=== PATIENT | female | born 1940 | race Caucasian/White ===

== ENCOUNTER 2021-07-25 14:53 | Emergency (ER) | payer MEDICARE, OTHER, SELFPAY ==
--- NOTE | 2021-07-25 | ECG_ITS ---
Test Reason : CHEST PAIN Blood Pressure : / mmHG Vent. Rate : 074 BPM Atrial Rate : 074 BPM P-R Int : 186 ms QRS Dur : 100 ms QT Int : 386 ms P-R-T Axes : 066 063 027 degrees QTc Int : 428 ms Normal sinus rhythm Nonspecific ST abnormality Abnormal ECG When compared with ECG of 14-MAR-2017 12:53, No significant change was found Referred By: Generic ED Physician Electronically Signed By:PALMA HUNT
--- NOTE | ~2021-07-25 | CT_ITS ---
CT/CT chest w con IMPRESSION: Bilateral consolidative airspace opacities with additional areas of tree-in-bud nodularity suggesting an infectious/inflammatory process. Recommend follow-up imaging to ensure resolution and to exclude the presence of underlying pulmonary nodules. Similar appearance to a cystic gas-filled structure in the superior mediastinum abutting the right trachea and cervical esophagus. Differential considerations would include a tracheal diverticulum or esophageal diverticulum. Fleischner guidelines were followed. EXAMINATION: CT CHEST WITH CONTRAST CLINICAL INFORMATION: Bilateral pneumonia versus mass COMPARISON: Chest radiograph 07/25/2021 TECHNIQUE: Multidetector volumetric CT imaging of the chest was obtained after the administration of 65 mL of Omnipaque 350 intravenous contrast without immediate adverse reactions. Axial MIP volume rendering provided. Sagittal and coronal reformatted images were obtained. This CT examination was performed using dose optimization techniques as appropriate, variously including the following: *Automated exposure control *Adjustment of mA and/or kV according to patient size (this includes techniques or standardized protocols for targeted exams where dose is matched to indication/reason for exam; i.e. extremities or head) *Use of iterative reconstruction technique DLP: 281 mGy-cm FINDINGS: LUNGS: There are bilateral consolidative airspace opacities, greatest in the right upper lobe adjacent to the major fissure and in the peripheral left upper lobe and superior segment of the left lower lobe. Additional areas of tree-in-bud nodularity and peripheral opacities in the right lower lobe. There is mild bronchial wall thickening. Scattered nodular opacities in both lungs favoring infectious/inflammatory etiologies. MEDIASTINUM: Heart is mildly enlarged, no pericardial effusion. There are low volume mediastinal lymph nodes. 1.4 cm right hilar node. Unchanged from prior exam from 2017, there is a gaseous cystic structure in the superior mediastinum abutting the posterior lateral right trachea and right cervical esophagus, this could represent a tracheal diverticulum versus an esophageal diverticulum. The thoracic aorta measures up to 4.1 cm. PLEURA: Trace right pleural effusion. AXILLA: No lymphadenopathy. UPPER ABDOMEN: Unremarkable OSSEOUS STRUCTURES: Degenerative changes in the spine.
--- NOTE | ~2021-07-25 | XR_ITS ---
EXAMINATION: XR CHEST CLINICAL INFORMATION: Shortness of breath COMPARISON: March 18, 2017 TECHNIQUE: AP portable view of the chest was obtained. FINDINGS: There are regions of parenchymal disease seen about the right upper lobe laterally as well as the left upper lobe laterally. This may represent bilateral infectious/inflammatory process however possible malignancy/metastatic disease is not excluded. If clinically indicated CT of the chest could help in further evaluation. Heart normal size. No pneumothorax or pleural effusion. No evidence of pulmonary edema. XR/XR chest 1V IMPRESSION: Bilateral peripheral lung lesions which may be infectious/inflammatory in nature. Malignancy cannot be excluded.
[2021-07-25 15:02] VITALS: BP 144/79; PULSE 79; RESP 18; TEMP 37.3; O2SAT 93; BMI 24.8
[2021-07-25 16:12] LABS: MANUAL DIFF FLAG NO
[2021-07-25 16:15] LABS: Basophils Percent Auto 0.3 % (0-2); Eosinophils Absolute Auto 0.1 X10*3/uL (0.0-0.4); Eosinophils Percent Auto 0.9 % (0-4); Hematocrit 34.3 % (37.0-47.0); Hemoglobin 11.2 g/dl (12.0-16.0); Imm Gran Abs Auto 0.03 X10*3/uL (0.00-0.03); Imm Gran Pct Auto 0.3 % (0.0-0.4); Lymphocytes Absolute Auto 1.5 X10*3/uL (1.2-4.9); Lymphocytes Percent Auto 15.2 % (20-40); Mean Corpuscular HGB Conc 32.7 g/dl (31.0-35.0); Mean Corpuscular Hemoglobin 29.8 pg (27.0-33.0); Mean Corpuscular Volume 91.2 fL (80.0-98.0); Mean Platelet Volume 9.9 fL (9.4-12.3); Monocytes Absolute Auto 0.9 X10*3/uL (0.1-1.2); Monocytes Percent Auto 9.4 % (2-11); Neutrophils Absolute Auto 7.1 x10*3/uL (2.0-8.3); Neutrophils Percent Auto 73.9 % (45-73); Platelet Count 200 X10*3/uL (160-400); Red Blood Count 3.76 X10*6/uL (4.20-5.50); Red Cell Distribution Width 13.5 % (11.0-16.0); White Blood Count 9.6 X10*3/uL (4.8-10.8)
[2021-07-25 16:27] LABS: Anion Gap 13 (12-20); Blood Urea Nitrogen 13 mg/dL (9-16); Calcium 8.8 mg/dL (8.4-10.2); Carbon Dioxide 26 mmol/L (22-29); Chloride 102 mmol/L (96-108); Creatinine Clr Calc Pharmacy 46.9; Estimated Glomerular Filt Rate 60; Glucose Random 111 mg/dL (60-115); Potassium 4.2 mmol/L (3.3-5.1); Sodium 137 mmol/L (135-145)
--- NOTE | 2021-07-25 16:44 | ED.CHESTPAIN ---
HPI - Chest Pain General Chief Complaint: Chest Pain Stated Complaint: Chest pain Time Seen by Provider: 07/25/21 16:30 Source: patient History of Present Illness HPI narrative: Patient with several days of cough and worsening shortness of breath. This morning she woke up and had bilateral chest discomfort. She describes it is lower limbs lateral aspect. No midline chest pain. No shoulder or back pain. Pain is sharp and worse with coughing and deep breathing. No prior history of this although she does have a history of chronic lung disease for which she sees a manager r d. She was prescribed doxycycline antibiotic starting 3 days ago so far without significant improvement. She is not on steroids at the moment. She states feels like she has sputum but is unable to cough it up. She has a history of an aortic aneurysm although she does not know which part of the aorta is affected. She denies abdominal pain. Related Data Home Medications Medication Instructions Recorded Confirmed atorvastatin 40 mg tablet 1 tab PO DAILY 07/25/21 07/25/21 doxycycline hyclate 100 mg capsule 100 mg PO BID 07/25/21 07/25/21 fluticasone propionate 110 1 puff PO DAILY 07/25/21 07/25/21 mcg/actuation HFA aerosol inhaler (Flovent HFA) levothyroxine 75 mcg tablet 1 tab PO DAILY 07/25/21 07/25/21 omeprazole 20 mg capsule,delayed 1 cap PO DAILY 07/25/21 07/25/21 release Previous Rx's Medication Instructions Recorded prednisone 20 mg tablet 40 mg PO DAILY #10 tab 07/25/21 Allergies Allergy/AdvReac Type Severity Reaction Status Date / Time No Known Allergies Allergy Unverified 12/16/19 19:24 [No Known Allergies*] Review of Systems Constitutional: Comments: No fevers or chills Cardiovascular: Comments: Chest pain as described Respiratory: Comments: Dyspnea and cough is described Gastrointestinal: Comments: No abdominal pain or nausea or vomiting Musculoskeletal: Comments: No leg pain Integumentary/Breasts: Comments: No rash Neurologic: Comments: No focal weakness PMFSH Past Medical History Medical History (Updated 07/25/21 @ 21:37 by Jose Erwin MD) Aortic aneurysm Social History Social History Alcohol intake: never Patient Tobacco Use Status: Never used Tobacco Use of substances other than those prescribed or required for medical reasons: No Advance Directives: Yes Advance Directives Information Provided: No Advance Directives on File: No Physical Exam Vital Signs: Vital Signs: Last Vital Signs Temp 97.8 F 07/25/21 19:29 Pulse 72 07/25/21 20:00 Resp 22 H 07/25/21 20:00 BP 156/65 H 07/25/21 19:29 Pulse Ox 94 07/25/21 20:00 BMI result Body Mass Index 24.8 Const: Other: Awake and alert in no acute distress. Chest: Other: Bilateral lateral lower chest wall tenderness. Reproduces symptoms. No midline or sternal tenderness Resp: Other: Diminished bilaterally, right greater than left. No obvious rales Cardio: Other: Regular rate and rhythm without murmurs rubs or gallops GI: Other: Soft nontender nondistended Skin: Other: Warm pink and dry without rash Neuro: Other: Grossly nonfocal Course Course Course Narrative: Cough chest pain. Clinically appears to be much more musculoskeletal pain. Unlikely cardiac or a order related. EKG normal sinus rhythm without ischemia. Lab work is unremarkable Will obtain chest x-ray IV Solu-Medrol, IV Toradol, albuterol. 17:35. CBC is normal Chemistries are normal Chest x-ray shows bilateral upper lobe infiltrates versus possible masses. CT scan recommended and ordered. 21:36. Patient able ambulate without desaturation. Feeling considerably better after medication. CT scan shows bilateral upper lobe infiltrates. She is currently on doxycycline but has only taken 2 doses so far. I do not think we need to change her antibiotics at this point. She is stable for discharge home. We will add prednisone to her current medication list MDM - Chest Pain Lab Data Result diagrams: 07/25/21 16:07 07/25/21 16:07 Labs: Lab Results 07/25/21 07/25/21 07/25/21 Range/Units 16:07 16:07 17:16 WBC 9.6 (4.8-10.8) X10*3/uL RBC 3.76 L (4.20-5.50) X10*6/uL Hgb 11.2 L (12.0-16.0) g/dl Hct 34.3 L (37.0-47.0) % MCV 91.2 (80.0-98.0) fL MCH 29.8 (27.0-33.0) pg MCHC 32.7 (31.0-35.0) g/dl RDW 13.5 (11.0-16.0) % Plt Count 200 (160-400) X10*3/uL MPV 9.9 (9.4-12.3) fL Immature Gran % (Auto) 0.3 (0.0-0.4) % Neut % (Auto) 73.9 H (45-73) % Lymph % (Auto) 15.2 L (20-40) % [place] % (Auto) 9.4 (2-11) % Eos % (Auto) 0.9 (0-4) % Baso % (Auto) 0.3 (0-2) % Lymph # (Auto) 1.5 (1.2-4.9) X10*3/uL [place] # (Auto) 0.9 (0.1-1.2) X10*3/uL Eos # (Auto) 0.1 (0.0-0.4) X10*3/uL Baso # (Auto) 0.0 (0.0-0.2) X10*3/uL Abs Immat Gran (auto) 0.03 (0.00-0.03) X10*3/uL Absolute Neuts (auto) 7.1 (2.0-8.3) x10*3/uL Absolute Nucleated RBC 0.000 (0.0-0.012) X10*3/uL Nucleated RBC % (auto) 0.0 (0.0-0.2) /100WBC Sodium 137 (135-145) mmol/L Potassium 4.2 (3.3-5.1) mmol/L Chloride 102 (96-108) mmol/L Carbon Dioxide 26 (22-29) mmol/L Anion Gap 13 (12-20) BUN 13 (9-16) mg/dL Creatinine 0.91 (0.5-1.4) mg/dL Estim Creat Clear Calc 46.9 Estimated GFR 60 Random Glucose 111 (60-115) mg/dL Calcium 8.8 (8.4-10.2) mg/dL COVID-19 (LUIS) Negative (Negative) COVID-19 Clin Com See Note Discharge Plan Discharge Clinical Impression: Atypical chest pain, Pneumonia Patient Disposition: Home, Self-Care Instructions: Community Acquired Pneumonia (ED) Prescriptions: New prednisone 20 mg tablet 40 mg PO DAILY Qty: 10 0RF No Action atorvastatin 40 mg tablet 1 tab PO DAILY 0RF doxycycline hyclate 100 mg capsule 100 mg PO BID 0RF Rx Instructions: X 10 DAYS STARTING 07/24/21 levothyroxine 75 mcg tablet 1 tab PO DAILY 0RF omeprazole 20 mg capsule,delayed release(DR/EC) 1 cap PO DAILY 0RF Flovent HFA 110 mcg/actuation HFA aerosol inhaler 1 puff PO DAILY 0RF
[2021-07-25 16:45] VITALS: BP 168/75; PULSE 74; RESP 19; TEMP 37; O2SAT 98
[2021-07-25] MEDS: Albuterol Sulfate (0.083%) 2.5 MG/3 ML VIAL.NEB INHALE (17:01)
[2021-07-25 17:02] VITALS: PULSE 71; RESP 20; O2SAT 97
[2021-07-25] MEDS: methylPREDNISolone Sod Succ 125 MG/2 ML VIAL IVPUSH (17:08)
[2021-07-25] MEDS: Ketorolac Tromethamine 15 MG/ML VIAL 30 MG IVPUSH (17:08)
[2021-07-25 17:40] LABS: COVID-19 Test Negative (Negative); IDNOW Serial# 16C4AD1C
[2021-07-25 19:29] VITALS: BP 156/65; PULSE 67; RESP 15; TEMP 36.6; O2SAT 94
[2021-07-25] MEDS: iohexoL 350 MG/ML 100 ML INFUS..BTL IV (19:46)
[2021-07-25 20:00] VITALS: PULSE 72; RESP 22; O2SAT 94
--- NOTE | 2021-07-25 20:54 | PHA.MEDREC ---
Pharmacy Consult ? Medication Reconciliation Pharmacy has completed the medication reconciliation.
--- NOTE | 2021-07-25 21:31 | PC.NURSE ---
pt ambulated w pulse ox. O2 sat starting at 94% dropping to 91%. pt felt some intermittent dizziness while walking, but improved from arrival to ED. provider notified.
--- NOTE | 2021-07-25 21:34 | PC.NURSE ---
IV removed from left AC.
== END 2021-07-25 21:44 | disposition home or self-care (01) ==
PROVIDERS: Emergency Provider Emergency Medicine; PCP Family Medicine
DX: J18.9 Pneumonia, unspecified organism (principal); R07.89 Other chest pain; J98.4 Other disorders of lung; I71.9 Aortic aneurysm of unspecified site, without rupture; Z20.822 Contact with and (suspected) exposure to COVID-19
CPT/HCPCS: 36415; 71045; 71260; 80048; 85025; 87635; 93005; 94640; 96374; 96375; 99284; 99285; J1885; J2930; Q9967

== ENCOUNTER 2023-11-27 12:11 | Emergency (ER) | payer MEDICARE, OTHER, SELFPAY ==
--- NOTE | ~2023-11-27 | CT_ITS ---
EXAMINATION: CT CERVICAL SPINE WITHOUT CONTRAST CLINICAL INFORMATION: Mechanical fall, neck injury and pain COMPARISON: CT scan of chest on 07/25/2021 TECHNIQUE: Multiple 3 and 0.6 mm axial images were obtained from base of skull to T1 levels without IV contrast enhancement. Sagittal and coronal 2.0 mm bone window images were reconstructed from axial image data. This CT examination was performed using dose optimization techniques as appropriate, variously including the following: *Automated exposure control *Adjustment of mA and/or kV according to patient size (this includes techniques or standardized protocols for targeted exams where dose is matched to indication/reason for exam; i.e. extremities or head) *Use of iterative reconstruction technique DLP: 268.96 mGy-cm FINDINGS: C1/C2: Bony structures are intact with normal alignment. Advanced atlantoaxial joint osteoarthritis with small sharp marginal osteophytosis is seen. There is no spinal stenosis. C2/C3: Bony structures are intact with normal alignment. There is no spinal stenosis. Bilateral C2/C3 neuroforamina are patent. Bilateral apophyseal joints are intact with normal alignment. C3/C4: Bony structures are intact with normal alignment. There is no spinal stenosis. Bilateral C3/C4 neuroforamina are patent. Bilateral apophyseal joints are intact with normal alignment. C4/C5: Bony structures are intact with posterior C4 on C5 displacement by 0.14 cm. Anterior sharp syndesmophytes are present. There is marked decrease in intervertebral disc height.. There is no spinal stenosis. Bilateral C4/C5 neuroforamina are mildly stenosed. Bilateral apophyseal joints are intact with normal alignment. C5/C6: Bony structures are intact with normal alignment. There is no spinal stenosis. Bilateral C5/C6 neuroforamina are patent. Bilateral apophyseal joints are intact with normal alignment. C6/C7: Bony structures are intact with normal alignment. There is marked decrease in intervertebral disc height. Anterior sharp syndesmophytes are present. There is no spinal stenosis. Bilateral C6/C7 neuroforamina are patent. Bilateral apophyseal joints are intact with normal alignment. C7/T1: Bony structures are intact with normal alignment. There is no spinal stenosis. Bilateral C7/T1 neuroforamina are patent. Bilateral apophyseal joints are intact with normal alignment. Multilevel bilateral apophyseal joint and uncovertebral joint osteoarthritis with loss of joint space, sclerosis, facet hypertrophy and osteophytosis are seen. At T1 level, a right-sided tracheal diverticulum is seen directly beneath the right lower thyroid pole, communicating with posterior lateral tracheal lumen, measuring 3.3 cm in AP diameter, 1.7 cm in width, 2.5 cm in vertical height. CT/CT cervical spine wo IV con IMPRESSION: 1. No evidence of acute fracture or dislocation. 2. Multilevel cervical spondylosis, advanced C4-C5, C6-C7 degenerative cervical disc disease, grade 1 C4-C5 retrolisthesis. 3. 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 Fleischner guidelines were followed. Electronically signed by: Nav Peck MD 11/27/2023 03:20 PM EDT
--- NOTE | ~2023-11-27 | CT_ITS ---
EXAMINATION: CT HEAD WITHOUT CONTRAST CLINICAL INFORMATION: Mechanical fall, frontal head strike. COMPARISON: CT scan of brain on 03/14/2017 TECHNIQUE: Contiguous axial imaging was performed from the skull base to vertex without intravenous administration of contrast. This CT examination was performed using dose optimization techniques as appropriate, variously including the following: *Automated exposure control *Adjustment of mA and/or kV according to patient size (this includes techniques or standardized protocols for targeted exams where dose is matched to indication/reason for exam; i.e. extremities or head) *Use of iterative reconstruction technique DLP: 657.34 mGy-cm FINDINGS: Ventricles, sulci and cisterns are dilated, especially the ventricles. Marked sulcal dilatation is seen at bilateral parasagittal parieto-occipital junction. Bilateral frontal and parietal deep white matters show patchy decrease in attenuation. There is no midline shift, no abnormal intra- or extra- axial fluid accumulation. Watson and white matter differentiation is normal. Midline frontal crescent shaped acute scalp hematoma is seen measuring up to 0.6 cm in thickness. Bone window images show no evidence of skull fracture. CT/CT head/brain wo IV con IMPRESSION: 1. 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 2. Interval development of midline frontal acute scalp hematoma. No intracranial hemorrhage or skull fracture is seen. 3. No evidence of space occupying lesion could be found. 4. 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 5. The current plain CT scan of the brain shows no diagnostic evidence of acute cerebral infarction. Electronically signed by: Nav Peck MD 11/27/2023 02:45 PM EDT
[2023-11-27 12:30] VITALS: BP 144/72; PULSE 66; RESP 18; TEMP 36.6; O2SAT 99; BMI 24.1
--- NOTE | 2023-11-27 12:32 | ED.HA ---
HPI - Headache General Chief Complaint: Fall Stated Complaint: Fall, hit head Time Seen by Provider: 11/27/23 15:36 Source: patient Mode of arrival: ambulatory Limitations: no limitations History of Present Illness ED Provider: PRATIMA MENSAH PA-C HPI Narrative: 82 year old female with pmhx significant for HTN presents to the ED today for evaluation of 1/10 headache after head strike yesterday. Patient reports that while sleeping at her friends house in [place] she had an episode of vivid dreams causing her to roll off the platform bed. Reports frontal head strike on the carpeted floor. She recalls the entire incident and denies LOC. Not on anticoagulation. She states this happened over 24 hours ago around 5:00 a.m. in the morning. She decided to wait to return to [place] prior to seeking medical evaluation. Endorses 1/10 frontal headache with bump . Denies dizziness, vision changes, confusion, N/V. No other concerns at present. Related Data Home Medications ?Medication ?Instructions ?Recorded ?Confirmed atorvastatin 40 mg tablet 1 tab PO DAILY 07/25/21 07/25/21 doxycycline hyclate 100 mg capsule 100 mg PO BID 07/25/21 07/25/21 fluticasone propionate 110 1 puff PO DAILY 07/25/21 07/25/21 mcg/actuation HFA aerosol inhaler (Flovent HFA) levothyroxine 75 mcg tablet 1 tab PO DAILY 07/25/21 07/25/21 omeprazole 20 mg capsule,delayed 1 cap PO DAILY 07/25/21 07/25/21 release Previous Rx's ?Medication ?Instructions ?Recorded prednisone 20 mg tablet 40 mg (2 x 20 mg) PO DAILY #10 tabs 07/25/21 Allergies Allergy/AdvReac Type Severity Reaction Status Date / Time No Known Allergies Allergy Unverified 11/27/23 12:32 [No Known Allergies*] Review of Systems Review of Systems: Constitutional: No fever, chills, fatigue, night sweats, weight changes ENT/Mouth: No ear pain, hearing loss, nasal congestion, sinus pain, rhinorrhea, sore throat Eyes: No eye pain, swelling, redness, vision changes, discharge Cardio: No chest pain, palpitations, ARRIAGA, orthopnea, peripheral edema Pulm: No SOB, cough, sputum, wheezing, dyspnea, hemoptysis GI: No nausea, vomiting, hematemesis, abdominal pain, diarrhea, constipation, hematochezia, melena : No irregular bleeding, dysuria, frequency, urgency, hesitancy, hematuria, flank pain, urinary flow changes, urinary incontinence or retention MSK: No back pain, neck pain, joint pain, myalgias Skin: No lesions, rashes Neuro: No weakness, numbness, paresthesias, LOC, dizziness, +headache Psych: No anxiety/panic, depression, SI/HI, AH/VH All other systems reviewed and are negative. FOR[facility]LY [facility] Past Medical History Attestation statement: The following information was validated with the patient. Source: old records reviewed and nursing notes reviewed Medical History Aortic aneurysm Social History Social History Alcohol intake: never Patient Tobacco Use Status: Never used Tobacco Advance Directives: No Advance Directives Information Provided: No Physical Exam Vital Signs: Vital Signs: Last Vital Signs Temp 98.4 F 11/27/23 15:38 Pulse 80 11/27/23 15:38 Resp 16 11/27/23 15:38 BP 170/69 H 11/27/23 15:38 Pulse Ox 99 11/27/23 12:30 O2 Del Method Room Air 11/27/23 15:38 BMI result Body Mass Index 24.1 Patient hypertensive, vitals otherwise WNL. General: Well appearing, in no acute distress. Skin: Warm, dry, intact. No rashes or lesions. Head: Small frontal scalp hematoma. No palpable skull fracture. EENT: Hearing is intact b/l. Conjunctiva clear. Sclera is anicteric. PERRLA. EOM intact. Moist mucous membranes.? Neck: Supple without LAD. FROM. Trachea midline.? Cardiac: Chest wall symmetric. RRR. No MRG. No JVD. Lungs: Normal respiratory effort without accessory muscle use. CTA bilaterally. No rales, rhonchi, or wheezes.? Abdomen: Soft, non-tender, non-distended. No rebound tenderness or guarding. Positive BS x4. Back: No midline spinous or paraspinal tenderness. No step off deformity. Ext: Upper and lower extremities atraumatic, without tenderness, deformity, swelling or erythema. Full ROM throughout. Pulses 2+ equal and bilateral. Neuro: AOx3. Normal speech. CN 2-12 grossly intact. Strength 5/5 intact throughout. Sensation intact to light touch. NV intact distally. Reflexes 2+ bilaterally. Ambulating with steady gait. Psych: Appropriate mood and affect. Responds appropriately to questions. Course Course Course Narrative: This is a Rapid Medical Examination (RME) performed by Tiffanie Mensah PA-C in triage. Full HPI, ROS, assessment and treatment plan per primary provider in the Main ED. 82 yo female here for eval of of headache s/p fall from 4ft height yesterday morning around 0515. reports having vivid dreams which caused her to roll off of a platform bed. reports frontal head strike on the floor. denies LOC, recalls the entire episode. Not on AC. admits she was out of state at her friends [facility], waited to return to [facility] for evaluation. denies neck pain, vision changes, confusion, dizziness, n/v. + perrla, exam nonfocal. Plan: cts Reevaluation(s) Reevaluation #1: [id number] -- Discussed all work up results with patient. Imaging shows new frontal scalp hematoma which is consistent with physical exam findings. Patient has remained stable throughout ED visit today. Discussed worrisome signs and symptoms and when to return to the ED. All questions answered at this time. Patient is agreeable with disposition and stable for discharge. CT head/brain wo IV con IMPRESSION: 1. 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 2. Interval development of midline frontal acute scalp hematoma. No intracranial hemorrhage or skull fracture is seen. 3. No evidence of space occupying lesion could be found. 4. 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 5. The current plain CT scan of the brain shows no diagnostic evidence of acute cerebral infarction. CT cervical spine wo IV con IMPRESSION: 1. No evidence of acute fracture or dislocation. 2. Multilevel cervical spondylosis, advanced C4-C5, C6-C7 degenerative cervical disc disease, grade 1 C4-C5 retrolisthesis. 3. 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 Fleischner guidelines were followed. Electronically signed by: Nav Peck MD 11/27/2023 03:20 PM EDT RP Medical Decision Making Medical Decision Making MDM Narrative: 82 year old female with pmhx significant for HTN presents to the ED today for evaluation of 1/10 headache after head strike yesterday. Patient is slightly hypertensive to 144/72. Vitals otherwise WNL. She is nontoxic-appearing and in no acute distress. Exam is nonfocal. Cerebellum intact. PERRLA. There is a small frontal scalp hematoma. No overlying lacerations or abrasions. No palpable skull fracture. No midline cervical spinous tenderness or step-off deformity. Full ROM intact to c spine. No ecchymosis noted to chest wall or abdomen. No tenderness to palpation. Ambulating with steady gait. Differential diagnosis includes concussion, scalp hematoma. Unlikely ICH, CVA/TIA, cervical fracture, subluxation, skull fracture, TBI. Plan for CT head/brain, C-spine, re-evaluation. Differential Diagnosis Differential Diagnoses: The differential diagnosis associated with the presentation includes as above Admission/Observation not indicated Independent Interpretation I performed an independent interpretation of an: CT Scan Interpretation: CT head/brain without acute intracranial bleed, small frontal scalp hematoma noted, agree with radiologist's interpretation. Ct cervical spine without acute fracture, agree with radiologist's interpretation. Radiology Impression Discussion of test interpretation with radiology: I have reviewed the radiologist's reading. Radiologist Impression: EXAMINATION: CT CERVICAL SPINE WITHOUT CONTRAST CLINICAL INFORMATION: Mechanical fall, neck injury and pain COMPARISON: CT scan of chest on 07/25/2021 TECHNIQUE: Multiple 3 and 0.6 mm axial images were obtained from base of skull to T1 levels without IV contrast enhancement. Sagittal and coronal 2.0 mm bone window images were reconstructed from axial image data. This CT examination was performed using dose optimization techniques as appropriate, variously including the following: *Automated exposure control *Adjustment of mA and/or kV according to patient size (this includes techniques or standardized protocols for targeted exams where dose is matched to indication/reason for exam; i.e. extremities or head) *Use of iterative reconstruction technique DLP: 268.96 mGy-cm FINDINGS: C1/C2: Bony structures are intact with normal alignment. Advanced atlantoaxial joint osteoarthritis with small sharp marginal osteophytosis is seen. There is no spinal stenosis. C2/C3: Bony structures are intact with normal alignment. There is no spinal stenosis. Bilateral C2/C3 neuroforamina are patent. Bilateral apophyseal joints are intact with normal alignment. C3/C4: Bony structures are intact with normal alignment. There is no spinal stenosis. Bilateral C3/C4 neuroforamina are patent. Bilateral apophyseal joints are intact with normal alignment. C4/C5: Bony structures are intact with posterior C4 on C5 displacement by 0.14 cm. Anterior sharp syndesmophytes are present. There is marked decrease in intervertebral disc height.. There is no spinal stenosis. Bilateral C4/C5 neuroforamina are mildly stenosed. Bilateral apophyseal joints are intact with normal alignment. C5/C6: Bony structures are intact with normal alignment. There is no spinal stenosis. Bilateral C5/C6 neuroforamina are patent. Bilateral apophyseal joints are intact with normal alignment. C6/C7: Bony structures are intact with normal alignment. There is marked decrease in intervertebral disc height. Anterior sharp syndesmophytes are present. There is no spinal stenosis. Bilateral C6/C7 neuroforamina are patent. Bilateral apophyseal joints are intact with normal alignment. C7/T1: Bony structures are intact with normal alignment. There is no spinal stenosis. Bilateral C7/T1 neuroforamina are patent. Bilateral apophyseal joints are intact with normal alignment. Multilevel bilateral apophyseal joint and uncovertebral joint osteoarthritis with loss of joint space, sclerosis, facet hypertrophy and osteophytosis are seen. At T1 level, a right-sided tracheal diverticulum is seen directly beneath the right lower thyroid pole, communicating with posterior lateral tracheal lumen, measuring 3.3 cm in AP diameter, 1.7 cm in width, 2.5 cm in vertical height. CT/CT cervical spine wo IV con IMPRESSION: 1. No evidence of acute fracture or dislocation. 2. Multilevel cervical spondylosis, advanced C4-C5, C6-C7 degenerative cervical disc disease, grade 1 C4-C5 retrolisthesis. 3. 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 Fleischner guidelines were followed. EXAMINATION: CT HEAD WITHOUT CONTRAST CLINICAL INFORMATION: Mechanical fall, frontal head strike. COMPARISON: CT scan of brain on 03/14/2017 TECHNIQUE: Contiguous axial imaging was performed from the skull base to vertex without intravenous administration of contrast. This CT examination was performed using dose optimization techniques as appropriate, variously including the following: *Automated exposure control *Adjustment of mA and/or kV according to patient size (this includes techniques or standardized protocols for targeted exams where dose is matched to indication/reason for exam; i.e. extremities or head) *Use of iterative reconstruction technique DLP: 657.34 mGy-cm FINDINGS: Ventricles, sulci and cisterns are dilated, especially the ventricles. Marked sulcal dilatation is seen at bilateral parasagittal parieto-occipital junction. Bilateral frontal and parietal deep white matters show patchy decrease in attenuation. There is no midline shift, no abnormal intra- or extra- axial fluid accumulation. Watson and white matter differentiation is normal. Midline frontal crescent shaped acute scalp hematoma is seen measuring up to 0.6 cm in thickness. Bone window images show no evidence of skull fracture. CT/CT head/brain wo IV con IMPRESSION: 1. 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 2. Interval development of midline frontal acute scalp hematoma. No intracranial hemorrhage or skull fracture is seen. 3. No evidence of space occupying lesion could be found. 4. 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 5. The current plain CT scan of the brain shows no diagnostic evidence of acute cerebral infarction. Electronically signed by: Nav Peck MD 11/27/2023 02:45 PM EDT RP Prescription Management I considered prescription management with: Pain Medication Chronic Conditions Patient?s care impacted by: Hypertension Social Determinants Patient?s care significantly limited by Social Determinants of Health including: Other Social Determinant of Health Critical Care Time Critical Care Time Critical Care Time: No Discharge Plan Discharge Clinical Impression: Hematoma of frontal scalp Patient Disposition: Home, Self-Care Instructions: Contusion in Adults (ED), Scalp Contusion in Adults (ED), Hematoma (ED) Additional Instructions: The CT scan of your head does not demonstrate intracranial bleed or skull fracture. It does show a small hematoma to your forehead, as discussed. The CT scan of your neck does not demonstrate acute fracture. You may have a concussion. The recommendation for this is resting the brain. Limit screen time over the next few days. You may take Tylenol and ibuprofen at home as needed for headache. Follow up with PCP as needed. Return to the ED with new or worsening symptoms such as intractable headache, nausea or vomiting, confusion. In the case of an emergency call 911. Prescriptions: No Action atorvastatin 40 mg tablet 1 tab PO DAILY doxycycline hyclate 100 mg capsule 100 mg PO BID Rx Instructions: X 10 DAYS STARTING 07/24/21 levothyroxine 75 mcg tablet 1 tab PO DAILY omeprazole 20 mg capsule,delayed release(DR/EC) 1 cap PO DAILY Flovent HFA 110 mcg/actuation HFA aerosol inhaler 1 puff PO DAILY prednisone 20 mg tablet 40 mg PO DAILY Qty: 10 0RF Referrals: Gui Bernal MD [Primary Care Provider] - Interventions: ED Discharge Assessment Last Done: 11/27/23 15:38 Discharge Date/Time: 11/27/23 15:41 Print Language: Ukrainian
[2023-11-27 15:38] VITALS: BP 170/69; PULSE 80; RESP 16; TEMP 36.9
== END 2023-11-27 15:41 | disposition home or self-care (01) ==
LOC: HO.ED 15:39
PROVIDERS: Emergency Provider Emergency Medicine; PCP Family Medicine
DX: S00.03XA Contusion of scalp, initial encounter (principal); M54.2 Cervicalgia; R51.9 Headache, unspecified; W06.XXXA Fall from bed, initial encounter; Y93.89 Activity, other specified; Y92.89 Other specified places as the place of occurrence of the external cause; Y99.8 Other external cause status
CPT/HCPCS: 70450; 72125; 99282; 99284

== ENCOUNTER 2023-12-04 19:19 | Emergency (ER) | payer MEDICARE, OTHER, SELFPAY ==
--- NOTE | ~2023-12-04 | XR_ITS ---
EXAMINATION: XR CHEST CLINICAL INFORMATION: Chest pain COMPARISON: Chest x-ray July 25, 2021 TECHNIQUE: 2 views of the chest were obtained. FINDINGS: Lungs are clear. No pulmonary vascular congestion. There is no pleural effusion. The heart size is normal. The cardiac and mediastinal contours are normal. There are multilevel degenerative changes of dorsal spine. XR/XR chest 2V IMPRESSION: Unremarkable examination. Electronically signed by: Ricardo Brandt MD 12/04/2023 09:28 PM EDT RP
--- NOTE | 2023-12-04 19:21 | ECG_ITS ---
Test Reason : CHEST PAIN Blood Pressure : / mmHG Vent. Rate : 065 BPM Atrial Rate : 065 BPM P-R Int : 218 ms QRS Dur : 096 ms QT Int : 416 ms P-R-T Axes : 057 032 041 degrees QTc Int : 432 ms Sinus rhythm with 1st degree A-V block Nonspecific ST abnormality Abnormal ECG When compared with ECG of 25-JUL-2021 14:58, HI interval has increased Referred By: Generic ED Physician Electronically Signed By:JAYCEE MORENO
--- NOTE | 2023-12-04 19:32 | ED_ITS ---
HPI - Chest Pain General Chief Complaint: Chest Pain Stated Complaint: chest pain, light headed,fatigue Time Seen by Provider: 12/05/23 00:09 History of Present Illness ED Provider: Angie BENAVIDES narrative: The patient is an 83-year-old woman who was seen in the emergency room a week ago after she fell out of bed and struck her face and knees and may have landed on her chest. She came to the emergency room after the fall and had a negative workup and was discharged. She has not been feeling that well since the fall and today she went for a more vigorous walk then she has recently. She felt some chest discomfort and shortness of breath as a result of the walk. She felt uncomfortable for about 5-10 minutes and decided to come to the emergency room for evaluation. Related Data Home Medications ?Medication ?Instructions ?Recorded ?Confirmed atorvastatin 40 mg tablet 1 tab PO DAILY 07/25/21 07/25/21 doxycycline hyclate 100 mg capsule 100 mg PO BID 07/25/21 07/25/21 fluticasone propionate 110 1 puff PO DAILY 07/25/21 07/25/21 mcg/actuation HFA aerosol inhaler (Flovent HFA) levothyroxine 75 mcg tablet 1 tab PO DAILY 07/25/21 07/25/21 omeprazole 20 mg capsule,delayed 1 cap PO DAILY 07/25/21 07/25/21 release Previous Rx's ?Medication ?Instructions ?Recorded prednisone 20 mg tablet 40 mg (2 x 20 mg) PO DAILY #10 tabs 07/25/21 Allergies Allergy/AdvReac Type Severity Reaction Status Date / Time No Known Allergies Allergy Verified 12/04/23 19:39 [No Known Allergies*] Review of Systems 2 Review of Systems: Yes all other systems are reviewed and are negative [facility] Past Medical History Medical History Aortic aneurysm Social History Social History Alcohol intake: never Patient Tobacco Use Status: Never used Tobacco Smoked in Last 30 Days: No Use of substances other than those prescribed or required for medical reasons: No Advance Directives: No Advance Directives Information Provided: No Do you have a plan to hurt others: No Plan Physical Exam 2 Vital Signs: Vital Signs: Last Vital Signs Temp 98.7 F 12/05/23 00:44 Pulse 66 12/05/23 00:44 Resp 18 12/05/23 00:44 BP 135/60 12/05/23 00:44 Pulse Ox 98 12/05/23 00:44 O2 Del Method Room Air 12/05/23 00:44 BMI result Body Mass Index 20.7 Const: Other: The patient is an 83-year-old woman who looks young for her age. She looks as though she is ordinarily in good health. She was awake and alert and did not appear in acute distress. HEENT: Head: Yes normal to inspection Face and sinus: Yes normal facial exam and Yes face symmetric Mouth: Normal oral and palatal mucosa present and moist mucous membranes Eyes: General: appearance normal, both eyes and all related structures Neck: Neck: Yes full ROM and Yes no JVD Resp: Effort & Inspection: normal respiratory effort Auscultation: clear to auscultation bilaterally Cardio: Rate: regular rate Rhythm: regular rhythm Heart sounds: S1 normal heart sound present and S2 normal heart sound present GI: Other: Abdomen is soft nontender Skin: Other: skin is dry and unremarkable Neuro: Other: the patient is awake and alert with normal mental status. Demeanor is pleasant and nontoxic. Cranial nerves are grossly intact. She moves her extremities normally and appropriately. She seems grossly neurologically intact. Extrem: Other: No calf swelling or tenderness, no calf asymmetry, no edema. Course Course Course Narrative: This is a Rapid Medical Examination (RME) performed by Maryjane Last PA-C in triage. Full HPI, ROS, assessment and treatment plan per primary provider in the Main ED. 83 yo female presents to the ER for evaluation of lightheadedness, lower/middle back pain, intermittent chest pains, leg pain, weakness, fatigue and SOB that started at 430 after she went for a walk around the block. no current chest pain. primary symptom is dizziness and not feeling right. she reports 8 days ago she fell out of bed and hit her head and has not fully recovered since. history of seizure 1 year ago and is on seizure med. no cardiac history. never smoker. Plan: EKG, labs, CXR, viral studies, orthostatics Medical Decision Making Medical Decision Making MDM Narrative: The patient is an 83-year-old woman with no history of coronary disease who presents with an episode of exertional chest pain and shortness of breath. She has an unremarkable EKG and flat troponins. I think it is probably unlikely that her symptoms were A manifestation of an acute coronary syndrome. She looks quite well. I think she may be discharged with instructions follow-up with regular doctor. In the meantime I would recommend that she avoid significant exertion until she has followed up with her regular doctor and possibly seen a mission assessment specialist. She was given the name and number of [facility] but she has most of her care through [facility] [place] and she may wish to follow-up through her regular doctor's office. Lab Data 12/04/23 19:45 12/04/23 19:45 Labs: Lab Results 12/04/23 12/04/23 12/04/23 Range/Units 19:45 22:42 23:57 WBC 6.6 (4.8-10.8) X10*3/uL RBC 3.77 L (4.20-5.50) X10*6/uL Hgb 11.1 L (12.0-16.0) g/dl Hct 34.4 L (37.0-47.0) % MCV 91.2 (80.0-98.0) fL MCH 29.4 (27.0-33.0) pg MCHC 32.3 (31.0-35.0) g/dl RDW 14.3 (11.0-16.0) % Plt Count 247 (160-400) X10*3/uL MPV 9.9 (9.4-12.3) fL Immature Gran % (Auto) 0.5 H (0.0-0.4) % Neut % (Auto) 51.6 (45-73) % Lymph % (Auto) 28.1 (20-40) % Mcminn % (Auto) 11.6 H (2-11) % Eos % (Auto) 5.9 H (0-4) % Baso % (Auto) 2.3 H (0-2) % Lymph # (Auto) 1.9 (1.2-4.9) X10*3/uL Mcminn # (Auto) 0.8 (0.1-1.2) X10*3/uL Eos # (Auto) 0.4 (0.0-0.4) X10*3/uL Baso # (Auto) 0.2 (0.0-0.2) X10*3/uL Abs Immat Gran (auto) 0.03 (0.00-0.03) X10*3/uL Absolute Neuts (auto) 3.4 (2.0-8.3) x10*3/uL Absolute Nucleated RBC 0.000 (0.0-0.012) X10*3/uL Nucleated RBC % (auto) 0.0 (0.0-0.2) /100WBC Sodium 136 (135-145) mmol/L Potassium 4.4 (3.3-5.1) mmol/L Chloride 100 (96-108) mmol/L Carbon Dioxide 25 (22-29) mmol/L Anion Gap 15 (12-20) BUN 21 H (9-16) mg/dL Creatinine 0.99 (0.5-1.4) mg/dL Estim Creat Clear Calc 40.3 Estimated GFR 54 Random Glucose 91 (60-115) mg/dL Calcium 9.4 D (8.4-10.2) mg/dL Magnesium 2.3 (1.6-2.6) mg/dL Total Bilirubin 0.6 (0.0-1.0) mg/dL Direct Bilirubin 0.2 (0.0-0.5) mg/dL AST 21 (5-31) U/L ALT 17 (0-31) U/L Alkaline Phosphatase 58 (39-117) U/L Troponin I High Sens 3.5 3.6 (<3.5-17.0) ng/L B-Natriuretic Peptide 153 H (<100) pg/mL Total Protein 7.7 (6.5-8.0) g/dL Albumin 3.8 (3.5-5.0) g/dL Urine Color Yellow Urine Appearance Clear Urine pH 6.5 (5.0-9.0) Ur Specific [place] <= 1.005 (1.005-1.025) Urine Protein Negative (Neg-Trace) mg/dL Urine Glucose (UA) Negative (Negative) mg/dL Urine Ketones Negative (Negative) mg/dL Urine Blood Negative (Negative) Urine Nitrite Negative (Negative) Ur Leukocyte Esterase Trace H (Negative) Urine RBC 0-2 (0-2) /HPF Urine WBC 0-5 (0-5) /HPF Ur Squamous Epith Cells 0-2 (0-2) /HPF Urine Bacteria None Seen (None Seen) Hyaline Casts 0-2 (0-2) /LPF Influenza Type A (PCR) NEGATIVE (Negative) Influenza Type B (PCR) NEGATIVE (Negative) RSV RNA Qual (PCR) NEGATIVE (Negative) SARS-CoV-2 RNA (RT-PCR) NEGATIVE (Negative) Independent Interpretation I performed an independent interpretation of an: EKG Interpretation: EKG at 19:22 shows sinus rhythm with 1st degree AV block at 65 beats per minute. There are nonspecific ST changes but no definite acute ischemic changes. Discharge Plan Discharge Clinical Impression: Chest pain Patient Disposition: Home, Self-Care Additional Instructions: Your EKG and your blood test to check for a heart attack today are very reassuringly unremarkable. I therefore think it is unlikely that your symptoms represent a problem with your coronary arteries. Nevertheless I think it would be prudent for you to follow up soon with your regular doctor and possibly see a mission assessment specialist as well. Therefore please contact your regular doctor's office in the morning for a follow up appointment with him or for referral to a mission assessment specialist. Alternatively if you wish to follow up with a [facility] I have provided their contact information. In either event I would recommend that you avoid any significant exertional activities until you follow up. If at any point you feel significantly worse please return to the emergency room for further evaluation. Prescriptions: No Action atorvastatin 40 mg tablet 1 tab PO DAILY doxycycline hyclate 100 mg capsule 100 mg PO BID Rx Instructions: X 10 DAYS STARTING 07/24/21 levothyroxine 75 mcg tablet 1 tab PO DAILY omeprazole 20 mg capsule,delayed release(DR/EC) 1 cap PO DAILY Flovent HFA 110 mcg/actuation HFA aerosol inhaler 1 puff PO DAILY prednisone 20 mg tablet 40 mg PO DAILY Qty: 10 0RF Referrals: [facility] [Provider Group] (exertional chest discomfort with negative troponin) Gui Bernal MD [Primary Care Provider] - (Episode of exertional chest discomfort and dyspnea with normal EKG and negative troponins) Interventions: ED Discharge Assessment Last Done: 12/05/23 00:44 Discharge Date/Time: 12/05/23 00:47 Print Language: Filipino
[2023-12-04 19:39] VITALS: BP 183/95; PULSE 69; RESP 16; TEMP 36.1; O2SAT 99; BMI 20.7
[2023-12-04 20:02] LABS: MANUAL DIFF FLAG NO
[2023-12-04 20:16] LABS: Basophils Absolute Auto 0.2 X10*3/uL (0.0-0.2); Basophils Percent Auto 2.3 % (0-2); Eosinophils Absolute Auto 0.4 X10*3/uL (0.0-0.4); Eosinophils Percent Auto 5.9 % (0-4); Hematocrit 34.4 % (37.0-47.0); Hemoglobin 11.1 g/dl (12.0-16.0); Imm Gran Abs Auto 0.03 X10*3/uL (0.00-0.03); Imm Gran Pct Auto 0.5 % (0.0-0.4); Lymphocytes Absolute Auto 1.9 X10*3/uL (1.2-4.9); Lymphocytes Percent Auto 28.1 % (20-40); Mean Corpuscular HGB Conc 32.3 g/dl (31.0-35.0); Mean Corpuscular Hemoglobin 29.4 pg (27.0-33.0); Mean Corpuscular Volume 91.2 fL (80.0-98.0); Mean Platelet Volume 9.9 fL (9.4-12.3); Monocytes Absolute Auto 0.8 X10*3/uL (0.1-1.2); Monocytes Percent Auto 11.6 % (2-11); Neutrophils Absolute Auto 3.4 x10*3/uL (2.0-8.3); Neutrophils Percent Auto 51.6 % (45-73); Platelet Count 247 X10*3/uL (160-400); Red Blood Count 3.77 X10*6/uL (4.20-5.50); Red Cell Distribution Width 14.3 % (11.0-16.0); White Blood Count 6.6 X10*3/uL (4.8-10.8)
[2023-12-04 20:23] LABS: Alanine Aminotransferase 17 U/L (0-31); Albumin Level 3.8 g/dL (3.5-5.0); Alkaline Phosphatase 58 U/L (39-117); Anion Gap 15 (12-20); Aspartate Amino Transferase 21 U/L (5-31); Bilirubin Direct 0.2 mg/dL (0.0-0.5); Bilirubin Total 0.6 mg/dL (0.0-1.0); Blood Urea Nitrogen 21 mg/dL (9-16); Calcium 9.4 mg/dL (8.4-10.2); Carbon Dioxide 25 mmol/L (22-29); Chloride 100 mmol/L (96-108); Creatinine Clr Calc Pharmacy 40.3; Estimated Glomerular Filt Rate 54; Glucose Random 91 mg/dL (60-115); Magnesium 2.3 mg/dL (1.6-2.6); Potassium 4.4 mmol/L (3.3-5.1); Sodium 136 mmol/L (135-145); Total Protein 7.7 g/dL (6.5-8.0)
[2023-12-04 20:30] LABS: Troponin-I High Sensitivity 3.5 ng/L (<3.5-17.0)
[2023-12-04 20:47] LABS: Influenza A PCR NEGATIVE (Negative); Influenza B PCR NEGATIVE (Negative); Resp Syncy Virus RNA Qual PCR NEGATIVE (Negative); SARS COV2 PCR INHOUSE NEGATIVE (Negative)
[2023-12-04 20:51] LABS: B Type Natriuretic Peptide 153 pg/mL (<100)
[2023-12-04 22:25] VITALS: BP 176/79; PULSE 63; RESP 16; TEMP 36.3; O2SAT 97
[2023-12-04 23:11] LABS: Troponin-I High Sensitivity 3.6 ng/L (<3.5-17.0)
[2023-12-05] VITALS: BP 150/71; PULSE 59; RESP 18; TEMP 37.1; O2SAT 97
[2023-12-05 00:06] VITALS: BP 149/62; BP 150/71; PULSE 59; PULSE 61
[2023-12-05 00:07] VITALS: BP 135/60; PULSE 66
[2023-12-05 00:09] LABS: Appearance Urine Clear; Color Urine Yellow; Glucose Urine UA Negative (Negative); Leukocyte Esterase Urine Trace (Negative); Nitrite Urine Negative (Negative); PH 6.5 (5.0-9.0); Specific Gravity - Urine <= 1.005 (1.005-1.025); UMIC TRIGGER UACC YES; Urine Blood Negative (Negative); Urine Ketones Negative (Negative); Urine Protein Negative (Neg-Trace)
[2023-12-05 00:11] LABS: Bacteria Urine None Seen (None Seen); Hyaline Casts Urine 0-2 /LPF (0-2); RBC Urine 0-2 /HPF (0-2); Squamous Epithelial Cell Urine 0-2 /HPF (0-2); WBC Urine 0-5 /HPF (0-5)
[2023-12-05 00:44] VITALS: BP 135/60; PULSE 66; RESP 18; TEMP 37.1; O2SAT 98
== END 2023-12-05 00:47 | disposition home or self-care (01) ==
PROVIDERS: Physician Assistant; Emergency Provider Emergency Medicine; PCP Family Medicine
DX: R07.9 Chest pain, unspecified (principal); R06.02 Shortness of breath; Z03.818 Encounter for observation for suspected exposure to other biological agents ruled out; Z79.899 Other long term (current) drug therapy
CPT/HCPCS: 0241U; 36415; 71046; 80048; 80076; 81001; 81003; 83735; 83880; 84484; 85025; 93005; 99283; 99284

== ENCOUNTER 2025-03-01 14:03 | Inpatient (IN) | payer MEDICARE, OTHER, SELFPAY ==
--- OUTSIDE RECORDS SUMMARY | 2025-02-23 23:59 | XMS_ITS | Continuity of Care Document ---
Author Organization [facility] Bhupendra Emanuel lt Address [address] [place] [address]- Care Team Providers Care Housecleaner Floor Name Role Phone Gui Bernal MD Primary Care Physician [phone] [id number] Date(s): 02/16/25 - 02/23/25 [facility] Bhupendra Adult [address] [place] [address]- Encounter Diagnosis Hypothyroidism(Discharge Diagnosis) - 02/19/25 Screening for hyperlipidemia(Discharge Diagnosis) - 02/19/25 Attending Physician: Gui Bernal MD Encounter Type: Office Visit Allergies, Adverse Reactions, Alerts No Known Allergies Functional Status Functional Status Assessment Assessment Assessment Component Result Effecti ve Date STEADI 3 Score 0 02/16/25 Functional Status Assessment Assessment Assessment Component Result Effecti ve Date Disability status [CUBS] I'm Building Capacity - I have an asymptomatic condition controlled by services or medication 02/16/25 Do you have serious difficulty walking or climbing stairs No 02/16/25 Because of a physica l, mental, or emotional condition, do you have serious difficulty concentrating, remembering, or making decisions Yes 02/16/25 Difficulty Reading O r Writing No 02/16/25 Are you blind, or do you have serious difficulty seeing, even when wearing glasses Yes 02/16/25 Difficulty communica ting in usual language No 02/16/25 Are you deaf, or do you have serious difficulty hearing Yes 02/16/25 Because of a physica l, mental, or emotional condition, do you have difficulty doing errands alone such as visiting a physician's office or shopping No 02/16/25 Do you have difficul ty dressing or bathing No 02/16/25 Do you need any additional assistance or accommodations during your visit No 02/16/25 Immunizations Given and Recorded Vaccine Date Status Refusal Reason influenza virus vaccine, inactivated 12/21/24 Chirag rded influenza virus vaccine, inactivated 12/30/23 Chirag rded influenza virus vaccine, inactivated 12/18/22 Chirag rded influenza virus vaccine, inactivated 12/03/20 Chirag rded influenza virus vaccine, inactivated 01/04/20 Chirag rded influenza virus vaccine, inactivated 12/26/18 Chirag rded influenza virus vaccine, inactivated 12/25/17 Chirag rded influenza virus vaccine, inactivated 12/04/16 Chirag rded influenza virus vaccine, inactivated 01/24/16 Chirag rded influenza virus vaccine, inactivated 02/01/15 Chirag rded influenza virus vaccine, inactivated 12/29/13 Chirag rded influenza virus vaccine, inactivated 12/02/12 Chirag rded SARS-CoV-2(COVID-19)mRNA-LNP vac([id number]) 07/26/24 Recorded SARS-CoV-2(COVID-19)mRNA-LNP vac([id number]) 02/02/24 Recorded SARS-CoV-2(COVID-19)mRNA-LNP vac([id number]) 08/06/23 Recorded SARS-CoV-2(COVID-19)mRNA-LNP vac([id number]) 01/14/23 Recorded RSV vaccine, preF A-preF B, recombinant 12/06/22 R ecorded [id number] bivalent booster vax 01/02/22 Recorded tetanus/diphtheria/pertussis, acel(Tdap) 1 12/28/21 Given tetanus/diphtheria/pertussis, acel(Tdap) 02/03/13 Recorded SARS-CoV-2 (COVID-19) mRNA BNT-162b2 vac 01/20/21 Recorded SARS-CoV-2 (COVID-19) mRNA BNT-162b2 vac 05/26/20 Recorded SARS-CoV-2 (COVID-19) mRNA BNT-162b2 vac 05/05/20 Recorded zoster vaccine, inactivated 11/02/19 Recorded zoster vaccine, inactivated 06/09/19 Recorded zoster vaccine, inactivated 03/31/19 Recorded pneumococcal 23-valent vaccine 02/05/16 Recorded pneumococcal 13-valent vaccine 06/08/14 Recorded 1Result Comment: [id number] Medications atorvastatin 20 mg oral tablet 1 tablet = 20 mg, By Mouth, Daily, # 30 tablet, 5 Refills, Maintenance, 07/22/24 12:56:00 PM EDT, Tablet, [facility], Partial fill upon patient request if the prescription is for a schedule II opioid drug., 163.3, cm, 04/27/24 11:00:00 EST, Height, 67.3, kg, 04/27/24 11:00:00 EST, Dry Weight Start Date: 07/22/24 Status: Ordered Medication Dispense Status: Completed Quantity: 30.0 Unit: tablet Total Allowed Fills: 6 Fills Dispensed: 0 Estrace Vaginal Cream 0.1 mg/g See Instructions, 1 Gm in the vagina 2 times per week, # 42 Gm, 3 Refills, Maintenance, 10/12/24 10:49:00 AM EDT, [facility], Partial fill upon patient request if the prescription is for a schedule II opioid drug., 165, cm, 09/09/24 14:13:00 EDT, Height, 67, kg, 10/12/24 10:09:00 EDT, Dry Weight Start Date: 10/12/24 Status: Ordered Medication Dispense Status: Completed Quantity: 42.0 Unit: g Total Allowed Fills: 4 Fills Dispensed: 0 fluticasone/umeclidinium/vilanterol 100 mcg-62.5 mcg-25 mcg/inh inhalation powder 1 puffs, Inhalation, Daily, at the same time every day, J44.9, # 3 each, 3 Refills, Maintenance, 12/24/24 11:55:00 AM EDT, Powder, [facility], Partial fill upon patient request if the prescription is for a schedule II opioid drug., 165, cm, 10/18/24 13:50:00 EDT, Height, 68, kg, 10/18/24 13:50:00 EDT, Dry Weight Start Date: 12/24/24 Status: Ordered Medication Dispense Status: Completed Quantity: 3.0 Unit: each Total Allowed Fills: 4 Fills Dispensed: 0 levETIRAcetam 500 mg oral tablet 1 tablet, By Mouth, 2 times a day, # 180 tablet, 1 Refills, Maintenance, 02/11/25 12:49:00 PM EST, [facility], 165, cm, 01/31/25 14:06:00 EST, Height, 68, kg, 10/18/24 13:50:00 EDT, Dry Weight Start Date: 02/11/25 Status: Ordered Medication Dispense Status: Completed Quantity: 180.0 Unit: tablet Total Allowed Fills: 2 Fills Dispensed: 0 levothyroxine 75 mcg (0.075 mg) oral tablet 1 tablet, By Mouth, Daily, Refills require lab work. Order in computer., # 90 tablet, 0 Refills, Maintenance, 02/11/25 12:49:00 PM EST, [facility], 165, cm, 01/31/25 14:06:00 EST, Height, 68, kg, 10/18/24 13:50:00 EDT, Dry Weight Start Date: 02/11/25 Status: Ordered Medication Dispense Status: Completed Quantity: 90.0 Unit: tablet Total Allowed Fills: 1 Fills Dispensed: 0 Magnesium Magnesium, By Mouth, Daily, 0 Refills, Maintenance, 01/31/25 2:11:00 PM EST Start Date: 01/31/25 Status: Ordered Medication Dispense Status: Completed Total Allowed Fills: 1 Fills Dispensed: 0 omeprazole 20 mg oral enteric coated capsule 1 capsule = 20 mg, By Mouth, Daily, j45.40, # 90 capsule, 3 Refills, Maintenance, 11/18/24 10:31:00 AM EDT, EC Capsule, [facility], Partial fill upon patient request if the prescription is for a schedule II opioid drug., 165, cm, 10/18/24 13:50:00 EDT, Height, 68, kg, 10/18/24 13:50:00 EDT,Dry Weight Start Date: 11/18/24 Status: Ordered Medication Dispense Status: Completed Quantity: 90.0 Unit: capsule Total Allowed Fills: 4 Fills Dispensed: 0 Potassium Citrate By Mouth, Daily, 0 Refills, Maintenance, 08/09/24 1:39:00 PM EDT, Partial fill upon patient request if the prescription is for a schedule II opioid drug. Start Date: 08/09/24 Status: Ordered Medication Dispense Status: Completed Total Allowed Fills: 1 Fills Dispensed: 0 Restasis 0.05% ophthalmic emulsion 1 drops, Eyes, Both, 2 times a day, 0 Refills, 07/13/19 3:55:00 PM EDT Start Date: 07/13/19 Status: Ordered Medication Dispense Status: Completed Total Allowed Fills: 1 Fills Dispensed: 0 Vitamin D3 oral tablet 1 tablet = 10 mcg, By Mouth, Daily, # 60 tablet, 0 Refills, Maintenance, 04/27/24 11:10:00 AM EST, Tablet, Partial fill upon patient request if the prescription is for a schedule II opioid drug. Start Date: 04/27/24 Status: Ordered Medication Dispense Status: Completed Quantity: 60.0 Unit: tablet Total Allowed Fills: 1 Fills Dispensed: 0 Mental Status Mental Status Assessment Assessment Assessment Component Result Effecti ve Date Patient Health Questionnaire 2 item (PHQ-2) total score [Reported] 0 02/16/25 Problem List Condition Confirmation Course Effective Dates Status Health Status Informant Ascending aortic aneurysm Confirmed Active Asthma Confirmed Active Epilepsy Confirmed Active GERD with esophagitis Confirmed Active Hemorrhoids Confirmed Active Hyperlipidemia Confirmed Active Hypothyroidism Confirmed Active Dry eyes due to decreased tear production Confirmed Active Breast microcalcifications Confirmed Active Lung nodules Confirmed Active JANET (obstructive sleep apnea) Confirmed Active Osteopenia Confirmed Active Osteoporosis Confirmed Active Colon polyp Confirmed Active 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 Diagnosis Diagnosis Type Effective Dates Health Status Clinical Service Informant Hypothyroidism Discharge Diagnosis 02/19/25 Screening for hyperlipidemia Discharge Diagnosis 02/19/25 Vital Signs Most recent to oldest [Reference Range]: 1 Height 165 cm (02/16/25 4:08 PM) Weight 70.4 kg (02/16/25 4:08 PM) Oxygen Saturation [94-100 %] 99 % (02/16/25 4:08 PM) Pulse Rate [55-90 bpm] 63 bpm (02/16/25 4:08 PM) Body Mass Index [18.5-24.99 kg/m2] 25.86 kg/m2 *H* (02/16/25 4:08 PM) Blood Pressure [90-138/55-84 mm Hg] 121/ 77mm Hg (02/16/25 4:08 PM) Mode of Delivery (Oxygen) Room air (02/16/25 4:08 PM) Blood pressure sites Arm, right (02/16/25 4:08 PM) Weight Obtained Via Standing scale (02/16/25 4:08 PM) Social History Social History Type Response Sexual Sexually involved in last 6 months: No. Smoking Status Never (less than 100 in lifetime) entered on: 11/15/19 Sex Sex Representation Female (finding) Patient Care team information Care Team Personnel Name: Gui Bernal MD Position: S Physician - Primary Care Member Role: PCP Address: [address] [place] [id number] Telecom: Care Team Related Persons Name: AMELIA SALAZAR Insurance Providers Guarantor name: CHEY SALAZAR Health Plan Information #: 1 Payer: MEDICARE B Payer Identifier: NA Member Number: [id number] Group Number: Subscriber Identifier: [id number] Relationship to Subscriber: self Coverage Type: NA Coverage Verification Date: NA Telecom: NA Address: Health Plan Information #: 2 Payer: BRANDON DICKEY Payer Identifier: NA Member Number: [id number] Group Number: NA Subscriber Identifier: [id number] Relationship to Subscriber: self Coverage Type: Medicare Other Coverage Verification Date: NA Telecom: NA Address:
[2025-03-01] VITALS (10 sets, daily range): BP systolic 97–129; BP diastolic 38–79; PULSE 64–152; RESP 16–27; TEMP 36.7–37.1; O2SAT 89–94; BMI 24.0
--- NOTE | ~2025-03-01 | CT_ITS ---
CLINICAL HISTORY: pain CT RIGHT UPPER EXTREMITY WITHOUT CONTRAST COMPARISON: None provided. FINDINGS: The right shoulder was scanned. Topogram image demonstrates a small to moderate left pleural effusion, and associated atelectasis versus infiltrate in the left lower lung. No evidence of an acute fracture or dislocation involving the right shoulder. There is mild degenerative narrowing within the acromioclavicular joint and glenohumeral joint. No aggressive lytic lesion or aggressive periosteal reaction. Tracheal diverticulum is noted at the level of the thoracic inlet. Minimal atelectatic/fibrotic changes are noted within the visualized portions of the right lung. IMPRESSION: 1. No acute disease in the right shoulder. Mild degenerative changes are noted. 2. The topogram image demonstrates a small to moderate left pleural effusion and associated atelectasis/infiltrate in the left lower lung. This document has been electronically signed by: Jaswinder Wilson M.D. on 03/01/2025 23:47:17
--- NOTE | ~2025-03-01 | XR_ITS ---
EXAMINATION: XR CHEST 2 VIEWS HISTORY: Pneumonia COMPARISON: Comparison is made with the prior examination dated 03/01/2025. FINDINGS: PA and lateral views of the chest are submitted. Again seen is left lower lobe airspace opacity and a a small left pleural effusion. The right lung is clear. There is no right pleural effusion, pneumothorax, or pulmonary vascular congestion. The heart is normal in size. There is degenerative disc disease of the spine. The patient is status post lower thoracic kyphoplasty. XR/XR chest 2V IMPRESSION: Left lower lobe airspace opacity and small left pleural effusion without change. Electronically signed by: David Diaz MD 03/07/2025 08:32 AM [facility]
--- NOTE | ~2025-03-01 | XR_ITS ---
EXAMINATION: XR CHEST CLINICAL INFORMATION: chest pain sob COMPARISON: X-ray 12/04/2023 TECHNIQUE: 2 views of the chest were obtained. FINDINGS: Stable cardiomediastinal silhouette. Overlying monitoring leads. Increased interstitial prominence. Airspace opacity in the left lower lung/retrocardiac region. Possible small left effusion. No pneumothorax is seen. Multilevel thoracic spine spondylosis. Sequela of vertebroplasty in the lower thoracic spine. XR/XR chest 2V IMPRESSION: Left lower lung/retrocardiac consolidation. Possible small left pleural effusion. Nonspecific mild increased interstitial prominence. Electronically signed by: Morgan Donnelly MD 03/01/2025 03:16 PM EST
--- NOTE | ~2025-03-01 | US_ITS ---
CLINICAL HISTORY: CORI , r o obstruction US Renal Comparison: None provided Findings: Right kidney normal size and echotexture, 11.3 cm length. Right kidney lower pole cysts measuring 2.2 x 1.5 x 1.9 cm Left kidney normal size and echotexture, 11 cm length. No hydronephrosis of either kidney. Normal color Doppler IMPRESSION: 1. No hydronephrosis. 2. Right kidney lower pole 2.2 cm cyst. This document has been electronically signed by: Marlyn Minor MD on 03/01/2025 20:40:38
--- NOTE | ~2025-03-01 | CT_ITS ---
EXAMINATION: CT ANGIOGRAM CHEST CLINICAL INFORMATION: Shortness of breath. Recent chest x-ray 03/01/2025 with left lower lobe pneumonia. COMPARISON: CT chest 07/25/2021. Chest x-ray 03/01/2025. TECHNIQUE: Multiple axial images were obtained through the chest after the administration of 50 mL of Omnipaque 350 intravenous contrast. Extensive vascular post-processing including two-dimensional and three-dimensional reformatted images were created and reviewed on an independent workstation. This CT examination was performed using dose optimization techniques as appropriate, variously including the following: *Automated exposure control *Adjustment of mA and/or kV according to patient size (this includes techniques or standardized protocols for targeted exams where dose is matched to indication/reason for exam; i.e. extremities or head) *Use of iterative reconstruction technique FINDINGS: VASCULAR: There is diagnostic quality of the opacification of the pulmonary arterial system. There is mild motion degradation from respiratory motion. There is no evidence of pulmonary embolus. The main pulmonary arteries and pulmonary trunk are normal in size. There is no evidence of right heart strain. There is no reflux of contrast into the IVC. The ascending aorta is ectatic at 4.0 cm diameter. There is no aneurysm. There is minimal atheromatous calcification with mild tortuosity of the descending aorta. There is a three-vessel branching pattern. The great vessels appear patent. The heart size is mildly enlarged. There is no pericardial effusion. LUNGS: There is dense left lower lobe segmental consolidation, with air bronchograms, and a small parapneumonic effusion present. There are mild reticular and groundglass opacities in the posterior inferior left upper lobe, and there are subsegmental patchy consolidations in the medial and posterior inferior right lower lobe. There is a tiny right pleural effusion. Minor reticular changes are present in the subpleural right upper and right middle lobes, possibly representing multifocal involvement of infection. PLEURA: As above, small left and tiny right pleural effusions with no definable pleural thickening or enhancement. No pleural mass. MEDIASTINUM: Vascular as above. 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 The thyroid is small but normal in appearance. There is no abnormal lymphadenopathy or mass within the mediastinum. The esophagus is unremarkable. The central airways are patent. AXILLA/CHEST WALL: No mass or abnormal lymph nodes. Mildly focally prominent breast tissue in the upper outer right breast, possibly normal parenchyma although correlation with mammogram is recommended in this patient without evidence of prior mammography. UPPER ABDOMEN: Mildly limited due to technique and streak artifact from a T12 vertebroplasty. No gross abnormality. OSSEOUS STRUCTURES: There is a T12 vertebroplasty. No additional compression deformity or suspicious bone lesion. Mild to moderate degenerative changes of the spine. CT/CT angio chest PE protocol IMPRESSION: 1. There is no evidence of pulmonary embolus. No evidence of acute aortic syndrome or aneurysm. 2. Multifocal pneumonia with dense consolidation of the inferior left lower lobe with air bronchograms. There are small left and tiny right parapneumonic effusions. No definite pleural enhancement. 3. Mild cardiomegaly with predominantly right atrial and right ventricular enlargement. 4. Mildly focally prominent breast tissue in the upper outer right breast, possibly normal parenchyma although correlation with mammogram is recommended in this patient without evidence of prior mammography, in an outpatient setting when the patient is stabilized. Electronically signed by: Elmer Shanks MD 03/04/2025 11:08 AM [facility]
--- OUTSIDE RECORDS SUMMARY | 2025-03-01 11:30 | XMS_ITS | Encounter Summary ---
Author Organization [facility] Address [address] [place] [address] [address] [place] [address] Phone Care Team Providers Care Crna Name Role Phone Tristin June MD Unavailable [phone] Gui Bernal MD Primary Care Provider + Michele Thomas MD Unavailable [phone] Reason for Visit * Reason Comments Follow-up Encounter Details Date Type Department Care Team (Latest Contact Info) Description 03/01/2025 11:30 AM EST Telemedicine [address], [address] Floor, [address] [place] [address] Alisson Godoy MD, MPH [address] [place] [address] [place] [id number] Tino [email or web address] Acute cough (Primary Dx); Shortness of breath; 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 No 02/22/2025 Education Answer Date Recorded Are you interested in more education? Not on sangita e 08/08/2022 Are you concerned about learning? Not on file 08/08/2022 No 08/08/2022 No 08/08/2022 Food Answer Date Recorded Within the past 6 months we worried whether our food would run out before we got money to buy more. Never True 02/22/2025 Within the past 6 months the food we bought just didn't last and we didn't have enough money to get more. Never True Residential Stability Answer Date Recor ded What is your housing situation today? I have jerardo sing 02/22/2025 How many times have you move d in the past 12 months? Zero (I did not move) 02/22/2025 Paying for Meds Answer Date Recorded Do you have trouble paying for medicines? No 02/22/2025 Paying Utility Bills Answer Date Record ed Do you have trouble paying your heating or elect ricity bill? No 02/22/2025 Transportation Answer Date Recorded Has the lack of transportati on kept you from medical appointments or from getting medications? No 02/22/2025 Digital Access Answer Date Recorded No 02/22/2025 Yes 02/22/2025 Do you have reliable internet access at home? Ye s 02/22/2025 Do you have a device (e.g., phone, tablet, computer) with a working camera? Yes 02/22/2025 Comments Unknown Sex and Gender Information Value Date Recorded Sex Assigned at Female 10/03/2021 12:39 PM EDT Legal Sex Female 6:52 PM EST Gender Identity Female 10/03/2021 12:39 PM EDT Sexual Orientation Straight 10/03/2021 12 :39 PM EDT documented as of this encounter Progress Notes * Alisson Godoy MD, MPH - 03/01/2025 11:30 AM EST Images from the original note were not included. Subject Line: Follow Up/Routine [facility] [place] Virtual Visit Follow-up Note? Visit date: 03/01/2025 ?Patient Name: Cyndie Bateman MRN:? [id number] PCP: ?Gui Bernal MD Legal Aid: Michele Thomas MD ? Chief Complaint Patient presents with Follow-up HPI: Cyndie Bateman is a 84 y.o. 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 She was treated in the past in [place]. Plan after I met her was to undergo induced sputum sothat we can perhaps make a diagnosis of mycobacterial disease, continue monitoring, have her learn how to do airway clearance, and continue exercising. As part of her work- up I checked an SPEP as sometimes mycobacterial disease can be related to MGUS and/or multiple myeloma. She underwent work-up in [place], [place] at [facility]. She underwent a bone marrow biopsy and PET scan. She has an IgA kappa monoclonal gammopathy. No myeloma lesions noted on PET scan. Bone marrow with 8% involvementof plasma cells and she has been given a diagnosis of MGUS and will be monitored every 6 months. 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 I last spoke with her in 09/2024 for virtual video visit and at that time she was noting continued hoarseness but had not seen ENT. She did not have clear symptoms related to NTM infection; however, plannedto check in now. I am seeing her today for virtual video visit follow-up. She is not feeling great at the moment. She notes that he nose is quite red as she has been quite congested. Has a very bad cold or something else is going on. Cough sounds like she has phlegm down in there. It is clear. She notes that her breathing seems a little labored compared to her baseline. Went to [facility] on 02/19 with afriend to see Janneth Mcpherson. The next day she quite exhausted and took a 3 hour nap (usually naps for only 20 mins). The next day had a sore throat which lasted for 2 days. She still went to [facility] and since then she has had a deep cough and some pain in her lower back and torso. Pain is worse with a deep breath. Before the illness she found that she was having some trouble breathing if she was not standing up straight. She doesn't think she has had any fevers. She has not tested herself for COVID-19. She did receive her COVID and influenza vaccines in December of this year. Prior to this illness was doing okay with adjustments, trying to to not get fatigued. When doing all the things she seems to be doing better. Appetite is not great. Has not had breakfast as she is not hungry. Feeling light headed part of the time which is not helping with her balance. No falls. 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 She had a CT scan in December at [facility]. I am unable to view it. 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 woman with asthma, bronchiectasis, and prior treated Mycobacterium avium complex infection whom I met in 2021 in the setting of pulmonary nodules and some mild weight loss whom I have been following expectantly. It has been difficult to get a sense of her symptoms as she has been slowing down some and it is unclear if this is due to NTM or aging or other. Today she has an acute illness and I am worried it could be an acute viral infection or pneumonia. I told her she should call her PCPor go to urgent care to be evaluated with an exam and likely viral swab and chest x-ray. I will re-assess her in 4-6 months to get a better sense of the NTM issues. Call PCP or go to urgent care for further evaluation for this acute illness Obtain CT chest from [facility] completed in 12/2024 Due for PCV 21 and she is aware Follow-up 4-6 months, sooner if issues Virtual Visit Attestation Virtual Visit Attestation Modality: video Provider Location, state disclosed to patient: practice location Patient Location: home Patient State or Country: [place] E&M Billing based on time (21532-61258): Yes Total time spent on date of service (min): 32 I personally spent the total time as documented on care for this patient on the date of the encounter. This includes lkgb-[id number] time during the visit as well as non bycx-us-zjbm time spent on chartreview, documentation, and care coordination. 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 It is not the complete legal health record.[facility]
--- NOTE | 2025-03-01 14:08 | ED.GENADULT ---
HPI - General Adult General Chief complaint: Dyspnea Stated complaint: cough, fatigue Time Seen by Provider: 03/01/25 14:21 Source: patient Mode of arrival: ambulatory Limitations: no limitations History of Present Illness ED Provider: DR. Vasquez HPI narrative: 84-year-old female who lives home independently and mostly functional came in for evaluation after 4 days of generalized weakness, sore throat, nonproductive cough, sneezing, no shortness of breath, no chest pain, no headache, no fever, no chills, no sick contacts , decreased p.o. intake due to decreased appetite. Patient overall feels weak. Found to be in heart rate of 150s and EKG reveals new onset atrial fibrillation. Related Data Home Medications ?Medication ?Instructions ?Recorded ?Confirmed atorvastatin 20 mg tablet 20 mg PO DAILY 03/01/25 03/01/25 cyclosporine 0.05 % eye drops in a 1 drp ophthalmic (eye) BID 03/01/25 03/01/25 dropperette (Restasis) estradiol 0.01% (0.1 mg/gram) 1 appl vaginal DAILY PRN Vaginal 03/01/25 03/01/25 vaginal cream Dryness fluticasone fur. 100 mcg-umeclid 1 ea inhalation DAILY 03/01/25 03/01/25 62.5 mcg-vilant 25 mcg inhalat.powder (Trelegy Ellipta) levetiracetam 500 mg tablet 500 mg PO BID 03/01/25 03/01/25 levothyroxine 75 mcg tablet 75 mcg PO DAILY@0600 03/01/25 03/01/25 omeprazole 20 mg capsule,delayed 20 mg PO DAILY@1630 03/01/25 03/01/25 release vitamin B complex 1 cap PO DAILY 03/01/25 03/01/25 Allergies Allergy/AdvReac Type Severity Reaction Status Date / Time No Known Allergies (No Known Allergy Verified 03/01/25 14:09 Allergies*) Review of Systems Review of Systems: All other systems are reviewed and are negative Constitutional: Reports as per HPI and Reports no additional constitutional complaints Eyes: Reports as per HPI and Reports no additional eye complaints Reports system reviewed and no additional complaints, except as documented Cardiovascular: Reports as per HPI and Reports no additional cardiovascular complaints Respiratory: Reports as per HPI and Reports no additional respiratory complaints Gastrointestinal: Reports as per HPI and Reports no additional gastrointestinal complaints Genitourinary: Reports no additional female genitourinary complaints Musculoskeletal: Reports no additional musculoskeletal complaints Skin/Breast: Reports system reviewed and no additional complaints, except as docu Psychiatric: Reports no additional psychiatric complaints Endocrine: Reports no additional endocrine complaints Hematologic/Lymphatic: Reports no additional hematologic/lymphatic complaints Allergic/Immunologic: Reports no additional allergic/immunologic complaints Reports system reviewed and no additional complaints, except as documented and Reports Abnormal speech present [facility] Past Medical History Medical History Aortic aneurysm Social History Social History Alcohol intake: never Patient Tobacco Use Status: Never used Tobacco Smoked in Last 30 Days: No Advance Directives: Yes Advance Directives Information Provided: Yes Advance Directives on File: No Physical Exam ED Vital Signs: Vital Signs - 24 hr 03/01/25 14:08 03/01/25 14:56 03/01/25 15:30 Temperature 98.6 F Pulse Rate 152 H 125 H 143 H Pulse Rate [Apical] Respiratory Rate 18 Blood Pressure 104/62 122/73 129/79 Pulse Oximetry 93 92 Oxygen Delivery Method Room Air Nasal Cannula Oxygen Flow Rate 2 03/01/25 16:33 03/01/25 17:06 03/01/25 17:51 Temperature 98.7 F Pulse Rate 134 H 140 H Pulse Rate [Apical] 123 H Respiratory Rate 27 H Blood Pressure 121/76 114/71 Pulse Oximetry 94 Oxygen Delivery Method Room Air Oxygen Flow Rate 03/01/25 18:07 03/01/25 18:26 Temperature Pulse Rate 65 64 Pulse Rate [Apical] Respiratory Rate 16 Blood Pressure 97/38 L 105/61 Pulse Oximetry 89 L 93 Oxygen Delivery Method Nasal Cannula Nasal Cannula Oxygen Flow Rate 4 4 BMI result Body Mass Index 24.0 Vital signs have been reviewed and appear to be correct. Blood pressure elevated. Heart rate normal. Respiratory rate normal. Temperature normal. Oxygen saturation normal. Appearance: Alert. Oriented X3. No acute distress. Head: Normal external exam. Normocephalic. Atraumatic. No Flores signs noted. No raccoon eyes noted Eyes: PERRLA. EOMI. Conjunctiva and sclera normal. Eyelids normal. ENT: TM's Normal. Pharynx normal. Uvula midline. Moist mucous membranes. No trismus noted. No drooling noted. No muffled voice noted. Neck: Normal inspection. Neck supple. FROM. No adenopathy. Thyroid Normal. No meningeal signs. No neck mass noted. CVS: Normal heart rate and rhythm. Heart sound normal. No murmurs noted. Pulses normal throughout. Respiratory: No respiratory distress. Painless inspiration. Breath sounds normal. No wheezes/rales/rhonchi noted. Chest nontender. No accessory muscle usage noted or decreased air movement noted. Abdomen: Soft and nontender. Bowel sounds normal in all 4 quadrants. No distention noted. No organomegaly noted. No visible injury noted. Back: No CVA tenderness. Full range of motion noted. Skin: Skin warm and dry. Normal skin color. Normal skin turgor. No rashes/lesions/lacerations noted. Extremities: No lower extremity edema. Extremities exhibit normal range of motion. Extremities nontender. Neuro: Oriented X 3. Cranial nerve exam: II-XII are grossly intact No motor deficit. No sensory deficit. Reflexes normal. Course Course Course Narrative: This is a Rapid Medical Examination (RME) performed by Tiffanie Mensah PA-C in triage. Full HPI, ROS, assessment and treatment plan per primary provider in the Main ED. Hx: 84 yo F hx seizures, MAC lung disease, asthma, hypothyroidism here for eval of fatigue, chest pain, dyspnea on exertion, sob, sore throat since returning from [place] on 02/19/25. PE/vitals: Tachy to 150/160s. Charge nurse aware, patient brought back to room. Plan: labs, ekg, cxr, viral swabs Reevaluation(s) Reevaluation #1: 84-year-old female presented feeling of generalized weakness found to be in new onset rapid atrial fibrillation in the 150s initially patient started on metoprolol IV/ p.o. with digoxin heart rate was fluctuating from 90s to 150s then patient was started on Cardizem 20 mg IV initially patient had lower blood pressure of 91/57 and heart rate in the 90s. Time: 17:59 Reevaluation #2: Due to low blood pressure after Cardizem IV push will hold off for Cardizem currently heart rate in the 90s and blood pressure is 100/70 patient is asymptomatic and feels better, received total of 500 cc LR. would not give anymore fluids patient is already in early pulmonary congestion. Time: 19:20 Medications Administered Discontinued Medications Generic Name Dose Route Start Last Admin Trade Name Adilson PRN Reason Stop Dose Admin Aspirin 324 mg 03/01/25 15:28 03/01/25 16:00 Aspirin 81 Mg Tab.Chew PO 03/01/25 15:29 324 mg ONCE ONE Administration Digoxin 0.25 mg 03/01/25 15:21 03/01/25 15:58 Digoxin 0.5 Mg/2 Ml Ampul IVPUSH 03/01/25 15:22 0.25 mg ONCE ONE Administration Protocol Diltiazem HCl 20 mg 03/01/25 17:47 03/01/25 17:51 Diltiazem Hcl 50 Mg/10 Ml Vial IVPUSH 03/01/25 17:48 20 mg NOW STA Administration Ceftriaxone Sodium 1 gm/ 50 mls @ 100 mls/hr 03/01/25 15:28 03/01/25 16:08 Sodium Chloride IV 03/01/25 15:57 Infused ONCE ONE Infusion Doxycycline Hyclate 100 mg/ 250 mls @ 166.67 mls/hr 03/01/25 15:28 03/01/25 18:25 Sodium Chloride IV 03/01/25 16:57 Infused ONCE ONE Infusion Metoprolol Tartrate 5 mg 03/01/25 14:27 03/01/25 14:33 Metoprolol Tartrate 5 Mg/5 Ml Vial IVPUSH 03/01/25 14:28 5 mg ONCE ONE Administration Protocol Metoprolol Tartrate 5 mg 03/01/25 15:20 03/01/25 15:30 Metoprolol Tartrate 5 Mg/5 Ml Vial IVPUSH 03/01/25 15:21 5 mg ONCE ONE Administration Protocol Metoprolol Tartrate 50 mg 03/01/25 15:22 03/01/25 15:30 Metoprolol Tartrate 50 Mg Tablet PO 03/01/25 15:23 50 mg ONCE ONE Administration Protocol Medical Decision Making Differential Diagnosis Differential Diagnoses: The differential diagnosis associated with the presentation includes ( ACS, atrial dysrhythmia, ventricular dysrhythmia, severe anemia, electrolyte, pneumonia, pneumothorax, pleural effusion.) Admission/Observation Consideration of admission/observation: Escalation of care including admission/observation considered Lab Data MDM Lab Attestation statement: I reviewed the patient's lab results. 03/01/25 14:32 03/01/25 14:32 Labs: Lab Results 03/01/25 03/01/25 03/01/25 Range/Units 14:32 14:32 16:58 WBC 8.0 (4.8-10.8) X10*3/uL RBC 3.49 L (4.20-5.50) X10*6/uL Hgb 10.2 L (12.0-16.0) g/dl Hct 31.1 L (37.0-47.0) % MCV 89.1 (80.0-98.0) fL MCH 29.2 (27.0-33.0) pg MCHC 32.8 (31.0-35.0) g/dl RDW 14.6 (11.0-16.0) % Plt Count 153 L D (160-400) X10*3/uL MPV 9.7 (9.4-12.3) fL Immature Gran % (Auto) 0.7 H (0.0-0.4) % Neut % (Auto) 84.1 H (45-73) % Lymph % (Auto) 8.4 L (20-40) % [place] % (Auto) 5.7 (2-11) % Eos % (Auto) 0.6 (0-4) % Baso % (Auto) 0.5 (0-2) % Lymph # (Auto) 0.7 L (1.2-4.9) X10*3/uL [place] # (Auto) 0.5 (0.1-1.2) X10*3/uL Eos # (Auto) 0.1 (0.0-0.4) X10*3/uL Baso # (Auto) 0.0 (0.0-0.2) X10*3/uL Abs Immat Gran (auto) 0.06 H (0.00-0.03) X10*3/uL Absolute Neuts (auto) 6.7 (2.0-8.3) x10*3/uL Absolute Nucleated RBC 0.000 (0.0-0.012) X10*3/uL Nucleated RBC % (auto) 0.0 (0.0-0.2) /100WBC Sodium 133 L (135-145) mmol/L Potassium 4.0 (3.3-5.1) mmol/L Chloride 98 (96-108) mmol/L Carbon Dioxide 23 (22-29) mmol/L Anion Gap 16 (12-20) BUN 29 H (9-16) mg/dL Creatinine 1.86 H (0.5-1.4) mg/dL Estim Creat Clear Calc 21.4 Estimated GFR 26 Random Glucose 122 H (60-115) mg/dL Calcium 8.6 D (8.4-10.2) mg/dL Magnesium 1.9 (1.6-2.6) mg/dL Total Bilirubin 1.8 H (0.0-1.0) mg/dL AST 22 (5-31) U/L ALT 8 (0-31) U/L Alkaline Phosphatase 50 (39-117) U/L Troponin I High Sens 384.9 H* D 317.5 H* (<3.5-17.0) ng/L NT-Pro-B Natriuret Pep 9340.5 H Cancelled (<300) pg/mL Total Protein 7.9 (6.5-8.0) g/dL Albumin 3.5 (3.5-5.0) g/dL Influenza Type A (PCR) NEGATIVE (Negative) Influenza Type B (PCR) NEGATIVE (Negative) RSV RNA Qual (PCR) NEGATIVE (Negative) SARS-CoV-2 RNA (RT-PCR) NEGATIVE (Negative) Independent Interpretation I performed an independent interpretation of an: Plain X-Ray ( Chest:Left lower lung/retrocardiac consolidation. Possible small left pleural effusion. Nonspecific mild increased interstitial prominence. ) Radiology Impression Discussion of test interpretation with radiology: I have reviewed the radiologist's reading. Critical Care Time Critical Care Time Critical Care Time: Yes Total Critical Care Time: 60 Attestation: The patient was critically ill with a high probability of imminent or life-threatening deterioration. I spent greater than 30 minutes of discontinuous time evaluating the patient, delivering critical care at the bedside, discussing evaluating data with consultants. Critical care time does not include time spent performing separately billable procedures or teaching. Time spent performing critical care was 60 minutes. Discharge Plan Discharge Clinical Impression: New onset a-fib Patient Disposition: Admitted As Inpatient
--- NOTE | 2025-03-01 14:14 | ECG_ITS ---
Test Reason : sob Blood Pressure : */* mmHG Vent. Rate : 143 BPM Atrial Rate : * BPM P-R Int : * ms QRS Dur : 96 ms QT Int : 276 ms P-R-T Axes : * 54 257 degrees QTcB Int : 425 ms Atrial fibrillation with rapid ventricular response ST & T wave abnormality, consider inferolateral ischemia Abnormal ECG When compared with ECG of 04-Dec-2023 19:22, Atrial fibrillation has replaced Sinus rhythm Vent. rate has increased by [address] now depressed in Inferior leads ST now depressed in Lateral leads T wave inversion now evident in Inferior leads T wave inversion now evident in Lateral leads Referred By: Kathleen Mensah Electronically Signed By: PALMA HUNT
[2025-03-01 14:37] LABS: MANUAL DIFF FLAG NO
[2025-03-01 14:41] LABS: Hematocrit 31.1 % (37.0-47.0); Hemoglobin 10.2 g/dl (12.0-16.0); Imm Gran Abs Auto 0.06 X10*3/uL (0.00-0.03); Imm Gran Pct Auto 0.7 % (0.0-0.4); Lymphocytes Absolute Auto 0.7 X10*3/uL (1.2-4.9); Mean Corpuscular HGB Conc 32.8 g/dl (31.0-35.0); Mean Corpuscular Hemoglobin 29.2 pg (27.0-33.0); Mean Corpuscular Volume 89.1 fL (80.0-98.0); NRBC Abs Auto 0.000 X10*3/uL (0.0-0.012); NRBC Pct Auto 0.0 /100WBC (0.0-0.2); Platelet Count 153 X10*3/uL (160-400); Red Blood Count 3.49 X10*6/uL (4.20-5.50); White Blood Count 8.0 X10*3/uL (4.8-10.8)
[2025-03-01 14:56] LABS: Alanine Aminotransferase 8 U/L (0-31); Albumin Level 3.5 g/dL (3.5-5.0); Alkaline Phosphatase 50 U/L (39-117); Anion Gap 16 (12-20); Aspartate Amino Transferase 22 U/L (5-31); Blood Urea Nitrogen 29 mg/dL (9-16); Calcium 8.6 mg/dL (8.4-10.2); Carbon Dioxide 23 mmol/L (22-29); Chloride 98 mmol/L (96-108); Creatinine Clr Calc Pharmacy 21.4; Estimated Glomerular Filt Rate 26; Magnesium 1.9 mg/dL (1.6-2.6); Potassium 4.0 mmol/L (3.3-5.1); Sodium 133 mmol/L (135-145); Total Protein 7.9 g/dL (6.5-8.0)
[2025-03-01 15:09] LABS: Troponin-I High Sensitivity 384.9 ng/L (<3.5-17.0)
--- NOTE | 2025-03-01 15:46 | PC.NURSE ---
assumed care of patient, patient presented to the ED with increased sob, patient states this has been going on since yesterday, states she has had poor po intake. patient noted to be in afib rvr, states no history of afib. patient denies any blood thinners. patient medicated per MAY, states she has no chest pain, has productive cough that started around the same time as her sob. #20 placed in the LAC. patient is alert and oriented x4.
--- OUTSIDE RECORDS SUMMARY | 2025-03-01 16:45 | XMS_ITS | Clinical Summary ---
Author Organization [facility] Address [address] [place] [id number] Phone Care Team Providers Care Charter Coordinator Name Role Phone Tristin June MD Unavailable [phone] Gui Bernal MD Primary Care Provider + Michele Thomas MD Unavailable [phone] Allergies Active Allergy Reactions Criticality Noted Date Comments Johnny Inhibitors 03/13/2007 Erythromycin Base 08/11/2010 Macrolide Antibiotics GI Upset 03/13/2007 Medications levothyroxine (SYNTHROID, LEVOTHROID) 75 MCG tablet Take 75 mcg by mouth daily. Active atorvastatin (LIPITOR) 20 MG tablet Take 20 mg by mouth daily. Active b complex vitamins capsule Take 1 capsule by mouth daily. Active CYCLOSPORINE OPHT Apply 1 drop in each eye to eye 2 (two) times a day. Active levETIRAcetam (KEPPRA) 500 MG tablet Take 500 mg by mouth 2 (two) times a day. 03/09/2023 Active fluticasone-ume clidin-vilanter (TRELEGY ELLIPTA) 200-62.5-25 mcg inhaler Inhale 1 puff into the lungs daily. Active loratadine (CLARITIN) 10 mg tablet Take 10 mg by mouth daily. 03/29/2024 Active MAGNESIUM ORAL Take by mouth. 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 Overview (05/21/2014): Atrophy of vagina Hyperlipidemia 04/26/2008 Overview (05/21/2014): Hyperlipidemia Asthma 10/07/2005 Overview (05/21/2014): Asthma; mild Osteopenia 07/29/2005 Overview (05/21/2014): Osteopenia Uterine leiomyoma 07/29/2005 Overview (05/21/2014): Uterine fibroids; US 9.1 x 5.5 x 5.5 cm uterus c/w fibroids; 09/04 US 8 x 4 x 5 cm uterus with 1.6 cm fibroid Resolved Problems Problem Noted Date Diagnosed Date Resolved Date Cough 08/01/2009 05/18/2022 Overview (05/21/2014): Cough Encounters Date Type Department Care Team Description 03/01/2025 11:30 AM EST Telemedicine [address], [address], [address] [place] [address] Alisson Godoy MD, MPH Acute cough (Primary Dx); Shortness of breath; 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 01/24/2025 Telephone [facility] Rheumatology [address], [place] [address] Priti Dominique, Pt Calling Back from Last 3 Months Immunizations Immunization Administration Dates Next Due INFLUENZA, SPLIT VIRUS, TRIV ALENT W/ PRESERVATIVE IM 12/03/2020,02/01/2015,12/29/2013,12/02 Influenza High-Dose Quadriva lent Preservative Free IM 12/18/2022,12/03/2020,01/04/2020 Influenza High-Dose Trivalen t Preservative Free IM 12/26/2018,12/25/2017,12/04/2016,01/23 Influenza Trivalent Adjuvant ed Preservative free IM 12/30/2023 Influenza, Unspecified Formulation 11/29/2009,,02/13/2007 Influenza, whole 12/27/2021 Pneumococcal conjugate PCV13 06/08/2014 Pneumococcal polysaccharide PPSV23 02/05/2016, Pneumococcal, Unspecified Formulation 01/02/2010 RSV Vaccine (bivalent) 12/06/2022 Tdap 12/28/2021,02/03/2013 Zoster recombinant 11/02/2019,06/09/2019, 020 Social History Tobacco Use Types Packs/Day Years [...] Orientation Straight 10/03/2021 12 :39 PM EDT Last Filed Vital Signs Vital Sign Reading Time Taken Comments Blood Pressure 158/79 01/13/2024 10:41 AM EDT Pulse 77 01/13/2024 10:41 AM EDT Temperature 35.9 C (96.6 F) 01/13/2024 10:41 AM EDT Respiratory Rate - - Oxygen Saturation 98% 01/13/2024 10:41 AM EDT Inhaled Oxygen Concentration - - Weight 68 kg (150 lb) 01/13/2024 10:41 AM EDT Height 168.3 cm (5' 6.25 ) 03/27/2012 11:[address] Body Mass Index - - Plan of Treatment Health Maintenance Due Date Last Done Comments TSH LEVEL 1941 DEPRESSION SCREENING 1953 OSTEOPOROSIS SCREENING INITIAL (ONE-TIME) 2006 LIPID PANEL 12/02/2013 12/02/2012, 04/26/2009 COVID-19 VACCINE ( season) 2025 12/24/2024, 07/26/2024, 02/02/2024, Additional history exists Adult Td,Tdap Booster 12/29/2031 12/28/2021, 013 PNEUMOCOCCAL VACCINES (50+ years) Completed 02/05/2016, 06/08/2014, 01/02/2010 ZOSTER VACCINES Completed 11/02/2019, 05/29, 03/31/2019 RSV VACCINE Completed 12/06/2022 INFLUENZA VACCINE Completed 12/21/2024, , 12/18/2022, Additional history exists HEPATITIS A VACCINES Aged Out No long er eligible based on patient's age to complete this topic HIB VACCINES Aged Out No longer eligi ble based on patient's age to complete this topic MENINGOCOCCAL VACCINES (ACWY) Aged Out No longer eligible based on patient's age to complete this topic MENINGOCOCCAL VACCINES (B) Aged Out N o longer eligible based on patient's age to complete this topic Medical Devices Not on file Procedures Procedure Name Priority Date/Time Associated Diagnosis Comments HISTORICAL LAB Routine 04/26/2009 8:38 AM EST from Last 3 Months or Most Recently Relevant to Health Maintenance Results * (ABNORMAL) Historical Lab (04/26/2009 8:38 AM EST) SODIUM 136 135 - 146 MEQ/L [facility] POTASSIUM 4.2 3.6 - 5.0 MEQ/L [facility] CHLORIDE 99(Abnormally L) 100 - 110 MEQ/L [facility] CARBON DIOXIDE 31(Abnormally H) 20 - 29 MEQ/L [facility] ANION GAP 6(Abnormally L) 8 - 16 meq/L [facility] GLUCOSE 96 65 - 99 MG/DL [facility] BUN 13 5 - 21 MG/DL [facility] CREATININE 0.7 0.4 - 1.0 MG/DL [facility] eGFR >60 MDRD calculation using age, gender, and IDMS traceable creatinine. If patient is , multiply value by 1.21. Mean GFR = 85 for ages 60 to 69 60 - 128 ml/min [facility] TOTAL PROTEIN 6.8 6.1 - 8.3 G/DL [facility] ALBUMIN 4.2 3.3 - 4.8 G/DL [facility] CALCIUM 9.2 8.9 - 10.3 MG/DL [facility] BILIRUBIN,TOTAL 1.4(Abnormally H) 0.4 - 1.2 MG/DL [facility] ALK PHOS 44 0 - 100 U/L [facility] ALT 14 0 - 35 IU/L [facility] AST 19 0 - 46 IU/L [facility] CHOLESTEROL 228(Abnormally H) 0 - 200 MG/DL [facility] TRIGLYCERIDE 69 0 - 250 MG/DL [facility] HDL 87 >39 MG/DL [facility] CHOL/HDL 2.6 <5 [facility] LDL 127 40 - 130 MG/DL [facility] NON-HDL CHOLESTEROL 141.0 MG/DL [facility] Comment: Reference Range: The non-HDL Cholesterol value should not exceed the desired LDL-C by more than 30 mg/dl. 04/26/2009 8:38 AM EST 04/26/2009 9:22 AM EST us Conversion Provider Not In Sys LAB BLOOD ORDERAB LES Final Result Performing Organization Address City/State/[facility] [place] [address], [facility] from Last 3 Months or Most Recently Relevant to Health Maintenance Insurance MEDICARE PART A & B Member Subscriber Plan / Payer (Ef fective 2011-Present) Name:Cyndie Bateman Member ID:[id number] Relation to Subscriber:Self Name:Cyndie Bateman Subscriber ID:[id number] Payer ID:[id number] Group ID:Not on file Type:Medicare Address: [facility] [employer] [facility] [address] [facility] [place] [address] [facility] [employer] ENHANCE SUPPLEMENT MEDICARE PART A & B [facility] [employer]IC[employer] ENHANCE SUPPLEMENT MEDICARE PART A & B [facility] SUPPLEMENT MEDICARE PART A & B [facility] MEDICARE ENHANCE SUPPLEMENT MEDICARE PART A & B [facility] MEDICARE ENHANCE SUPPLEMENT MEDICARE PART A & B [facility] MEDICARE ENHANCE SUPPLEMENT MEDICARE PART A & B [facility] MEDICARE ENHANCE SUPPLEMENT MEDICARE PART A & B [facility] EN[facility] SUPPLEMENT MEDICARE PART A & B Member Subscriber Plan / Payer ( fective 2011-Present) Name:Marina Batemanra Caicedo Member ID:[id number] Relation to Subscriber:Self Name:Cyndie Bateman Subscriber ID:[id number] Payer ID:[id number] Group ID:Not on file Type:Medicare Address: [facility] [employer] [facility] [address] [place] [address] [facility] MEDICARE ENHANCE SUPPLEMENT Care Teams Charter Coordinator Relationship Specialty Start Date End Date Gui Bernal MD [address] [place] [address] [phone] PCP - General Family Medicine 10/03/21 Tristin June MD [address] [place] [phone] [email or web address] Historical LMR Provider 04/20/16 Michele Thomas MD [address] [place] [phone] Pulmonary Disease 04/24/22 Additional Source Comments The information contained in this document represents components of the legal health record. It is not the complete legal health record.[facility]
--- OUTSIDE RECORDS SUMMARY | 2025-03-01 16:45 | XMS_ITS | Encounter Summary ---
Author Organization [facility] Address [address] [place] [address] Phone Care Team Providers Care Electrotyper Apprentice Name Role Phone Tristin June MD Unavailable [phone] Gui Bernal MD Primary Care Provider + Michele Thomas MD Unavailable [phone] Encounter Details Date Type Department Care Team (Late st Contact Info) Description 02/17/2024 Procedure Pass [facility], Ct Scan - [address] [address] Social History Tobacco Use Types Packs/Day Years Used Date Smoking Tobacco: Never Child or Family Care Answer Date Record ed Do you have problems with on e of the following making it difficult for you to work, study, or receive health care? No 01/06/2024 Education Answer Date Recorded Are you interested in more education? Not on sangita e 08/08/2022 Are you concerned about learning? Not on file 08/08/2022 No 08/08/2022 No 08/08/2022 Food Answer Date Recorded Within the past 6 months we worried whether our food would run out before we got money to buy more. Never True 01/06/2024 Within the past 6 months the food we bought just didn't last and we didn't have enough money to get more. Never True Residential Stability Answer Date Recor ded What is your housing situation today? I have jerardo sing 01/06/2024 How many times have you move d in the past 12 months? Zero (I did not move) 01/06/2024 Paying for Meds Answer Date Recorded Do you have trouble paying for medicines? No 01/06/2024 Paying Utility Bills Answer Date Record ed Do you have trouble paying your heating or elect ricity bill? No 01/06/2024 Transportation Answer Date Recorded Has the lack of transportati on kept you from medical appointments or from getting medications? No 01/06/2024 Digital Access Answer Date Recorded No 01/06/2024 Yes 01/06/2024 Do you have reliable internet access at home? Ye s 01/06/2024 Do you have a device (e.g., phone, tablet, computer) with a working camera? Yes 01/06/2024 Comments Unknown Sex and Gender Information Value Date Recorded Sex Assigned at Female 10/03/2021 12:39 PM EDT Legal Sex Female 6:52 PM EST Gender Identity Female 10/03/2021 12:39 PM EDT Sexual Orientation Straight 10/03/2021 12 :39 PM EDT documented as of this encounter Plan of Treatment Not on file documented as of this encounter Visit Diagnoses Not on filedocumented in this encounter Care Teams Electrotyper Apprentice Relationship Specialty Start Date End Date Gui Bernal MD [address] [place] [phone] PCP - General Family Medicine 10/03/21 Tristin June MD [address] [place] [phone] Historical LMR Provider 04/20/16 Michele hTomas MD [address] [place] [address] [place] [address] Pulmonary Disease 04/24/22 documented as of this encounter Additional Source Comments The information contained in this document represents components of the legal health record. It is not the complete legal health record.[facility]
--- OUTSIDE RECORDS SUMMARY | 2025-03-01 16:45 | XMS_ITS | Encounter Summary ---
Author Organization [facility] Address [address] [place] [address] Phone Care Team Providers Care Consultant Internship Name Role Phone Tristin June MD Unavailable [phone] Gui Bernal MD Primary Care Provider + Michele Thomas MD Unavailable [phone] Encounter Details Date Type Department Care Team (Late st Contact Info) Description 08/03/2024 Procedure Pass [facility] [place], Ct Scan - [address] [address] Social History Tobacco Use Types Packs/Day Years [...] on filedocumented in this encounter Care Teams Consultant Internship Relationship Specialty Start Date End Date Gui Bernal MD [address] [place] [id number] PCP - General Family Medicine 10/03/21 Tristin June MD [address] [place] [phone] Historical LMR Provider 04/20/16 Michele Thomas MD [address] [place] [address] [place] [address] Pulmonary Disease 04/24/22 documented as of this encounter Additional Source Comments The information contained in this document represents components of the legal health record. It is not the complete legal health record.[facility]
[2025-03-01 17:27] LABS: Troponin-I High Sensitivity 317.5 ng/L (<3.5-17.0)
[2025-03-01 17:41] LABS: Resp Syncy Virus RNA Qual PCR NEGATIVE (Negative); SARS COV2 PCR INHOUSE NEGATIVE (Negative)
--- NOTE | 2025-03-01 18:16 | P.HPHOSP_ITS ---
History of Present Illness Date of Service: 03/01/25 Chief Complaint: weakness, Dyspnea, palpitations 84-year-old female with PMH of HLD, COPD, GERD and Hypothyroidism who living independently at home and previously mostly functional, presents for evaluation after four days of generalized weakness, sore throat, nonproductive cough, sneezing, and decreased oral intake due to poor appetite. She denies fever, chills, headache, shortness of breath, chest pain, or sick contacts. She reports feeling overall fatigued and weak. On arrival, she was found to have a heart rate in the 150s. EKG demonstrated new-onset atrial fibrillation. She received metoprolol and digoxin, with improvement in her heart rate from the 130s to the 90s. Initial troponin was elevated without significant delta change on repeat. BNP elevated as CXR showing evidence of LLL infiltrates and pleural effusion small in size. 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 Review of Systems 2 Review of Systems: No fever, chills but has generalized weakness No chest pain, palpitation reporting shortness of breath and coughing No abdominal pain, nausea or vomiting No urinary symptoms No any rash or wounds [facility] Medical History Aortic aneurysm Social History Alcohol intake: never Patient Tobacco Use Status: Never used Tobacco Smoked in Last 30 Days: No Advance Directives: Yes Advance Directives Information Provided: Yes Advance Directives on File: No Meds Allergies Allergy/AdvReac Type Severity Reaction Status Date / Time No Known Allergies (No Known Allergy Verified 03/01/25 14:09 Allergies*) Active Medications: Current Medications Diltiazem HCl 125 mg/ Sodium (Chloride) 125 mls @ 0 mls/hr IVCONT .Q0M COLLEEN; Protocol Home Medications ?Medication ?Instructions ?Recorded ?Confirmed ?Last Taken ?Type atorvastatin 20 mg tablet 20 mg PO DAILY 03/01/25 12/05/2503/01/25 History cyclosporine 0.05 % eye drops in a 1 drp ophthalmic (e ye) BID 03/01/25 03/01/25 03/01/25 History dropperette (Restasis) estradiol 0.01% (0.1 mg/gram) 1 appl vaginal DAILY PRN Vaginal 03/01/25 03/01/25 Unknown History vaginal cream Dryness fluticasone fur. 100 mcg-umeclid 1 ea inhalation DAILY 03/01/25 03/01/25 03/01/25 History 62.5 mcg-vilant 25 mcg inhalat.powder (Trelegy Ellipta) levetiracetam 500 mg tablet 500 mg PO BID 03/01/2505/2503/01/25 History levothyroxine 75 mcg tablet 75 mcg PO DAILY@0600 03/0103/01/25 03/01/25 History omeprazole 20 mg capsule,delayed 20 mg PO DAILY@1630 1 05/02/24 03/01/25 03/01/25 History release vitamin B complex 1 cap PO DAILY 03/01/2505/2503/01/25 History Physical Exam 2 Vital Signs and Narrative: Vital Signs: Last Vital Signs Temp 98.7 F 03/01/25 17:06 Pulse 65 03/01/25 18:07 Resp 27 H 03/01/25 17:06 BP 97/38 L 03/01/25 18:07 Pulse Ox 89 L 03/01/25 18:07 O2 Del Method Nasal Cannula 03/01/25 18:07 O2 Flow Rate 4 03/01/25 18:07 BMI result Body Mass Index 24.0 Const: Other: Constitutional : Awake, interactive, not in distress Neck : Normal inspection, Supple Cardiovascular : irregular irregular, no JVP, no lower extremity edema Respiratory : good bilateral air entry, basal fine LLL crackles, wheezes or rhonchi, On O2 supplement Gastrointestinal: soft, lax, Normal bowel sounds, Non tender Skin : Warm, Dry Neurological : Alert & oriented x3, No focal deficit Results Labs 03/01/25 14:32 03/01/25 14:32 Labs: Laboratory Results - last 24 hr 03/01/25 03/01/25 03/01/25 14:32 14:32 16:58 MCV 89.1 MCH 29.2 MCHC 32.8 RDW 14.6 Plt Count 153 L D MPV 9.7 Immature Gran % (Auto) 0.7 H Neut % (Auto) 84.1 H Lymph % (Auto) 8.4 L Moffat % (Auto) 5.7 Eos % (Auto) 0.6 Baso % (Auto) 0.5 Lymph # (Auto) 0.7 L Moffat # (Auto) 0.5 Eos # (Auto) 0.1 Baso # (Auto) 0.0 Abs Immat Gran (auto) 0.06 H Absolute Neuts (auto) 6.7 Absolute Nucleated RBC 0.000 Nucleated RBC % (auto) 0.0 Anion Gap 16 Estim Creat Clear Calc 21.4 Estimated GFR 26 Random Glucose 122 H Calcium 8.6 D Magnesium 1.9 Total Bilirubin 1.8 H AST 22 ALT 8 Alkaline Phosphatase 50 Troponin I High Sens 384.9 H* D 317.5 H* NT-Pro-B Natriuret Pep 9340.5 H Cancelled Total Protein 7.9 Albumin 3.5 Influenza Type A (PCR) NEGATIVE Influenza Type B (PCR) NEGATIVE RSV RNA Qual (PCR) NEGATIVE SARS-CoV-2 RNA (RT-PCR) NEGATIVE Imaging Radiologist's Impressions: Impressions Chest X-Ray 03/01/25 15:08 IMPRESSION: Left lower lung/retrocardiac consolidation. Possible small left pleural effusion. Nonspecific mild increased interstitial prominence. Electronically signed by: Morgan Donnelly MD 03/01/2025 03:16 PM EST Assessment and Plan (1) New onset a-fib: Status: Acute (2) Acute respiratory failure with hypoxia: Status: Acute (3) Acute kidney injury: Status: Acute (4) Pneumonia: Status: Acute (5) Atrial fibrillation with rapid ventricular response: Status: Acute Plan 84-year-old female with PMH of HLD, COPD, GERD, JANET on CPAP and Hypothyroidism who living independently at home and previously mostly functional, presents for evaluation after four days of generalized weakness, sore throat, nonproductive cough, sneezing, and decreased oral intake due to poor appetite. Acute hypoxic respiratory failure 2/2 LLL Pneumonia Not septic, to check LA CXR showing LLL focal opacity which might represent pneumonia Cover with Ceftriaxone and Azithromycin Given her hx of MAC consider Pulm team eval Follow cultures Send sputum cx CORI Looks more renal in origin To check US Renal avoid nephrotoxic meds follow I\O urine studies SEiuzre ? on Keppra, to confirm the reason and continue home dose New onset Afib w RvR Had Digoxin and Cardizem IV doses in ED and started on Cardizem drip with fair response Discussed blood thinners Keep on Tele Cardiology consult Elevated Troponin Likely type 2 NSTEMI with Afib RvR continue statin No Delta change acute mild hyponatremia 2/2 CORI monitor BMP Elevated Bilirubin Likely 2/2 type 2 nstemi and hypopefusion with dehydration DVT PPx Eliquis The patient will need 2 overnight hospital stay for treatment of ACute hypoxia, pneumonia, new Afib w RvR pending cardiology evaluation and heart rhythm\rate control Quality Stroke Does the patient have a stroke diagnosis?: No VTE Prior VTE?: No VTE Risk Level:: Medical - moderate - high VTE Device Contraindication: Treatment Not Indicated VTE Drug Contraindication: N/A - Med Ordered
--- NOTE | 2025-03-01 18:21 | PC.NURSE ---
Patient remains tachycardic despite two 5mg IV metoprolol, digoxin IV and 500cc of fluids. Order for 5mg diltiazem given. After diltiazem administration, patient MAPs 60-65. Verbal order for 500cc LR. Patient noted to have increase in oxygen requirement. 4 liters nasal cannula at 88-92%. LR stopped due to crackles noted in lungs. HR now 60-80.
--- NOTE | 2025-03-01 19:11 | PHA.MEDREC ---
Pharmacy Consult ? Medication Reconciliation Pharmacy has completed the medication reconciliation. Spoke with pt and she confirmed her medications.
--- NOTE | 2025-03-01 19:21 | PHA.MEDREC ---
Addendum entered by Miky Starr RPh 03/01/25 19:37: MED REC REVIEWED BY [facility] Original Note: Pharmacy Consult ? Medication Reconciliation Pharmacy has completed the medication reconciliation. Spoke with pt and she confirmed her medications. Pt taking Magnesium/Potassium OTC med QD but doesn't know dosage.
--- NOTE | 2025-03-01 19:35 | PC.NURSE ---
20 g IV in right AC and 20 g IV in left AC
--- NOTE | 2025-03-01 22:14 | PC.NURSE ---
Pt remains on 4 L O2 to maintain O2 sat.
--- NOTE | 2025-03-01 22:33 | PC.NURSE ---
Addendum entered by Luann Anthony RN 03/01/25 22:36: per , tramadol ordered as well as CT scan of shoulder. Original Note: pt ambulated with steady gait to bathroom and back, obtained urine sample. pt reporting R. shoulder pain radiating to her back, has been intermittent for weeks now, states could have had an injury but does not remember. MD Prado notified as PRN not available for this pain scale as well as ?additional imaging.
[2025-03-02] VITALS (11 sets, daily range): BP systolic 91–158; BP diastolic 51–97; PULSE 77–109; RESP 17–24; TEMP 36.1–36.7; O2SAT 93–97; BMI 24.1
--- NOTE | 2025-03-02 04:27 | PC.NURSE ---
Addendum entered by Luann Anthony RN 03/02/25 04:30: pt also confirmed gluten free diet. gluten allergy added to chart and diet order changed to be gluten free. Original Note: pt resting comfortably overnight. HR sustaining 80s-90s afib on monitor. pt denies any pain/concerns at this time, all needs met. AM labs obtained by phlebotomy. call malone within reach.
[2025-03-02 04:41] LABS: MANUAL DIFF FLAG NO
[2025-03-02 04:55] LABS: Hematocrit 28.8 % (37.0-47.0); Hemoglobin 9.5 g/dl (12.0-16.0); Imm Gran Abs Auto 0.05 X10*3/uL (0.00-0.03); Imm Gran Pct Auto 0.7 % (0.0-0.4); Lymphocytes Absolute Auto 1.2 X10*3/uL (1.2-4.9); Mean Corpuscular HGB Conc 33.0 g/dl (31.0-35.0); Mean Corpuscular Hemoglobin 29.4 pg (27.0-33.0); Mean Corpuscular Volume 89.2 fL (80.0-98.0); NRBC Abs Auto 0.000 X10*3/uL (0.0-0.012); NRBC Pct Auto 0.0 /100WBC (0.0-0.2); Platelet Count 150 X10*3/uL (160-400); Red Blood Count 3.23 X10*6/uL (4.20-5.50); White Blood Count 7.0 X10*3/uL (4.8-10.8)
[2025-03-02 04:56] LABS: Alanine Aminotransferase 6 U/L (0-31); Albumin Level 2.9 g/dL (3.5-5.0); Alkaline Phosphatase 45 U/L (39-117); Anion Gap 14 (12-20); Aspartate Amino Transferase 19 U/L (5-31); Blood Urea Nitrogen 24 mg/dL (9-16); Calcium 8.3 mg/dL (8.4-10.2); Carbon Dioxide 21 mmol/L (22-29); Chloride 103 mmol/L (96-108); Creatinine Clr Calc Pharmacy 32.1; Estimated Glomerular Filt Rate 41; Potassium 3.7 mmol/L (3.3-5.1); Sodium 134 mmol/L (135-145); Total Protein 6.7 g/dL (6.5-8.0)
--- NOTE | 2025-03-02 05:48 | HO.NURTONUR ---
Pt is an 84 y.o. female coming in with dyspnea and weakness. PMH aortic aneurysm. Labs remarkable for trops 384/317 and BNP 9340. Covid/flu neg. Chest xray shows Left lower lung/retrocardiac consolidation. Possible small left pleural effusion. Nonspecific mild increased interstitial prominence. Renal US shows small cyst on right side. Pt has been requiring 4 L O2 to maintain O2 sat, does not use O2 at baseline. Pt was found to be in afib RVR in the 150s on arrival. Received digoxin, HR has been maintaining in the 90s. Pt will intermittently go up to the 130s/140s but will come back down to the 90s-100s quickly. Diltiazem gtt ordered, pt has not received any at this time. VSS, a&ox4. Bilateral 20 g IVs in the ACs.
--- NOTE | 2025-03-02 08:13 | PC.NURSE ---
PT at bedside at this time.
[2025-03-02] MEDS: Fluticasone/Umeclidinium/Vilanterol 100/62.5/25 BLST.W.DEV 1 PUFF INHALE (08:30)
[2025-03-02] MEDS: 0.9 % Sodium Chloride Flush 3 ML SYRINGE IVFLUSH ×3 (08:46→20:55)
--- NOTE | 2025-03-02 09:55 | CA_ITS ---
Transthoracic Echocardiogram Patient (Last, First, Middle): Cyndie Bateman, Gender: F Date of : 1940 Age: 84 Procedure Date: 03/02/2025 Procedure Type: Transthoracic Echocardiogram Location: ER Height: 167.64 cm Weight: 67.59 kg BSA: 1.76 m2 Heart Rate: bpm BP: 93 / 57 mmHg Cmm Inspector: SB Referring MD: Santiago Eric MD Symptoms: AF, hx of aortic aneurysm Study Quality: Adequate ECG Rhythm: Atrial Fibrillation w RVR Conclusions: - The left ventricular systolic function is mildly decreased. The calculated ejection fraction is 52% by biplane method. - No obvious valvular pathology seen on this study. - There is mild dilatation of the ascending aorta measuring 3.90 cm. Findings Left Ventricle Normal left ventricular cavity size. The left ventricular systolic function is mildly decreased. The calculated ejection fraction is 52% by biplane method. There is no evidence of regional wall motion abnormalities. Diastolic function is indeterminate on the basis of available data. There is mild septal asymmetric hypertrophy. Right Ventricle Normal right ventricular cavity size. There is low normal right ventricular systolic function. Atria The left atrium is normal in size. The right atrium is mildly dilated. Aortic Valve There is a normal trileaflet aortic valve. There is mild calcification of the aortic valve. There is no aortic valve stenosis. There is no aortic valve regurgitation. Mitral Valve There is mild mitral annular calcification. There is no mitral valve regurgitation. There is no mitral valve stenosis. Pulmonic Valve The pulmonic valve is likely normal. Tricuspid Valve There is mild tricuspid valve regurgitation. There is no evidence of pulmonary hypertension. Great Vessels There is mild dilatation of the ascending aorta measuring 3.90 cm. Venous The inferior vena cava is mildly dilated and collapses less than 50% with inspiration. Pericardium/Pleural There is a trivial pericardial effusion. Prior Study Comparison Changes noted compared to prior study dated: 03/15/2017. LVEF slightly lower. Recommendations, Care & Conclusions No obvious valvular pathology seen on this study. Measurements 2D Linear Measurements IVSd: 1.05 0.6-0.9/0.6-1.0 cm LVIDd: 4.93 3.9-5.3/4.2-5.9 cm LVIDd Index: 2.80 2.4-3.2/2.2-3.1 cm/m2 LVIDs: 3.60 2.0-3.6 cm LVPWd: 0.84 0.7-1.1 cm LA Diam: 4.10 2.7-3.8/3.0-4.0 cm LAIDs Index: 2.33 1.5-2.3 cm/m2 LV Mass: 205.72 67-162/88-224 g LV Mass Index: 116.89 43-95/49-115 g/m2 LVOT Diam: 2.20 3.0+(-)1.3 cm 2D Systolic Function EF 4C: 50.40 >55% EF 2C: 52.20 >55% EF BiP: 52.10 >55% Mitral Valve MV Pk E: 0.98 E'Lateral: 9.22 E'Medial: 6.58 E/E' Med: 14.80 E/E' Lat: 10.60 Aortic Valve AoV Pk Adis: 1.31 AoV Pk Grad: 7.00 ARTEMIO: 2.73 LVOT LVOT Pk Adis: 0.94 LVOT Mn Adis: 0.68 LVOT VTI: 0.18 LVOT Pk Grad: 4.00 LVOT Mn Grad: 2.00 LVOT Diam: 2.20 LVOT Area: 3.80 Diastolic Function MV Pk E: 0.98 E'Medial: 6.58 E/E' Med: 14.80 E' Laterial: 9.22 E/E' Lat: 10.60 Right Ventricle TAPSE (mm): 18.20 TVS' Adis: 10.30 Tricuspid Valve TR Pk Adis: 2.19 TR Pk Grad: 19.00 RA Press: 15.00 RVSP: 34.00 Great Vessels Aorta Sinus of Valsalva: 3.00 2.0-3.5 cm Ao Asc: 3.90 2.1-3.4 cm Ao Arch: 3.20 Ao Desc: 1.90 Pulmonary Valve PV Pk Adis: 0.74 Peak PV Grad: 2.00 Updated in Other Vendor System with Status of Final Santiago Eric MD electronically signed on 03/02/2025 11:41:19 AM with status of Final
--- NOTE | 2025-03-02 10:20 | P.CONCA_ITS ---
History of Present Illness History of Present Illness Date of Service: 03/02/25 Chief complaint: New Afib RvR, CORI Narrative: This is a cardiology consultation regarding atrial fibrillation and rapid rate. Per notes, history of COPD and other comorbidities who lives independently and generally functional presenting for weakness, sore throat, cough, sneezing, decreased oral intake. In this context, she was found to be in atrial fibrillation with rapid rate in the 150s. She had received metoprolol/digoxin. Subsequently, she was admitted with a diagnosis of respiratory failure/pneumonia/atrial fibrillation. We have been asked to see here. She denies any history of coronary disease or cardiomyopathy or myocardial infarction, arrhythmias extra. However, she states she has a history of aortic aneurysm and gets seen at [facility] for that. Review of Systems 2 Review of Systems: Yes all other systems are reviewed and are negative Constitutional: Constitutional: Reports as per HPI, Reports no additional constitutional complaints, Reports fatigue, Reports lethargy and Reports weakness Eyes: Eyes: Reports as per HPI and Denies no additional eye complaints ENT: Denies system reviewed and no additional complaints, except as documented and Reports as per HPI Cardiovascular: Cardiovascular: Reports as per HPI, Reports no additional cardiovascular complaints, Denies acrocyanosis, Denies cool extremities, Denies chest pain, Denies leg edema, Denies lightheadedness, Denies palpitations and Denies dyspnea Respiratory: Respiratory: Reports as per HPI, Denies no additional respiratory complaints, Reports cough and Denies dyspnea Gastrointestinal: Gastrointestinal: Reports as per HPI and Denies no additional gastrointestinal complaints Genitourinary: Genitourinary: Reports as per HPI Musculoskeletal: Musculoskeletal: Reports no additional musculoskeletal complaints and Reports as per HPI Integumentary/Breasts: Skin/Breast: Reports system reviewed and no additional complaints, except as docu Neurologic: Reports system reviewed and no additional complaints, except as documented, Reports as per HPI and Reports weakness Psychiatric: Psychiatric: Reports no additional psychiatric complaints and Reports as per HPI Endocrine: Endocrine: Reports no additional endocrine complaints, Reports as per HPI, Reports fatigue and Denies palpitations Hematologic/Lymphatic: Hematologic/Lymphatic: Reports no additional hematologic/lymphatic complaints and Reports as per HPI Allergic/Immunologic: Allergic/Immunologic: Reports no additional allergic/immunologic complaints and Reports as per HPI [facility] Past Medical History Medical History Aortic aneurysm Family History Pertinent family history: No pertinent family history Social History Social History Household Members: None Housing: Apartment Do you presently have visiting nurse or other home services: No Alcohol intake: never Patient Tobacco Use Status: Never used Tobacco Smoked in Last 30 Days: No Have you been hit, kicked, punched, or otherwise hurt by someone within the past year? If so, by whom?: No Do you feel safe in your current relationship?: No Current Relationship Is there a partner from a previous relationship who is making you feel unsafe now?: No Are you made to feel afraid or neglected: No Spiritual Healthcare Practices: no [facility] Healthcare Practices: no Cultural Healthcare Practices: no Advance Directives: Yes Advance Directives Information Provided: Yes Advance Directives on File: No Advance Directives Date on File: 03/02/25 Do you have a plan to hurt others: No Plan Recently lost weight without trying: No Nutrition Risks: No Nutritional Risk Patient : No : No Meds Allergies Allergy/AdvReac Type Severity Reaction Status Date / Time gluten AdvReac Abdominal Verified 03/02/25 04:30 Pain Active Medications: Current Medications Acetaminophen (Acetaminophen 325 Mg Tablet) 650 mg PO Q6H PRN PRN Reason: Pain, Mild 1-3,fever,headache Apixaban (Apixaban 2.5 Mg Tablet) 2.5 mg PO BID [facility] Last Admin: 03/02/25 08:46 Dose: 2.5 mg Calcium Carbonate (Calcium Carbonate 750 Mg Tab.Chew) 750 mg PO Q4H PRN PRN Reason: Heartburn Levalbuterol HCl 1.25 mg/ (Ipratropium [place] 0.5 mg) 0 mg INHALE RQ6H [facility] Fluticasone/Umeclidinium/Vilanterol (Fluticasone/Umeclidinium/Vilanterol 100/62.5/25 Blst.W.Dev) 1 puff INHALE RDAILY [facility] On Hold: 03/02/25 09:25 Resume: 03/07/25 07:00 Last Admin: 03/02/25 08:30 Dose: 1 puff Ceftriaxone Sodium 1 gm/ (Sodium Chloride) 50 mls @ 100 mls/hr IV Q24H [facility] Levetiracetam (Levetiracetam 500 Mg Tablet) 500 mg PO BID [facility] Last Admin: 03/02/25 08:46 Dose: 500 mg Levothyroxine Sodium (Levothyroxine Sodium 75 Mcg Tablet) 75 mcg PO DAILY@0600 [facility] Last Admin: 03/02/25 06:23 Dose: 75 mcg Magnesium Hydroxide (Milk Of Magnesia 30 Ml Oral.Susp) 30 ml PO DAILY PRN PRN Reason: Constipation Melatonin (Melatonin 3 Mg Tablet) 6 mg PO BEDTIME PRN PRN Reason: Insomnia Methylprednisolone Sodium Succinate (Methylprednisolone Sod Succ 40 Mg/Ml Vial) 40 mg IVPUSH Q6H [facility] Last Admin: 03/02/25 09:45 Dose: 40 mg Non-Formulary Medication (Cyclosporine [Restasis]) 1 drop EYE-BOTH BID [facility] Omeprazole (Omeprazole 20 Mg Capsule.Dr) 20 mg PO DAILY@1630 [facility] Ondansetron HCl (Ondansetron Hcl 4 Mg/2 Ml Vial) 4 mg IVPUSH Q8H PRN PRN Reason: Nausea and Vomiting Sodium Chloride (0.9 % Sodium Chloride Flush 3 Ml Syringe) 3 ml IVFLUSH QSHIFT [facility] Last Admin: 03/02/25 08:46 Dose: 3 ml Home Medications ?Medication ?Instructions ?Recorded ?Confirmed ?Last Taken ?Type atorvastatin 20 mg tablet 20 mg PO DAILY 03/01/2505/2503/01/25 History cyclosporine 0.05 % eye drops in a 1 drp ophthalmic (e ye) BID 03/01/25 03/01/25 03/01/25 History dropperette (Restasis) estradiol 0.01% (0.1 mg/gram) 1 appl vaginal DAILY PRN Vaginal 03/01/25 03/01/25 Unknown History vaginal cream Dryness fluticasone fur. 100 mcg-umeclid 1 ea inhalation DAILY 03/01/25 03/01/25 03/01/25 History 62.5 mcg-vilant 25 mcg inhalat.powder (Trelegy Ellipta) levetiracetam 500 mg tablet 500 mg PO BID 03/01/2505/2503/01/25 History levothyroxine 75 mcg tablet 75 mcg PO DAILY@0600 03/0103/01/25 03/01/25 History omeprazole 20 mg capsule,delayed 20 mg PO DAILY@1630 1 05/02/24 03/01/25 02/28/25 History release vitamin B complex 1 cap PO DAILY 03/01/25 12/05/2503/01/25 History Physical Exam 2 Vital Signs: Vital Signs: Last Vital Signs Temp 97.6 F 03/02/25 08:44 Pulse 88 03/02/25 09:32 Resp 22 H 03/02/25 08:44 BP 92/51 L 03/02/25 09:32 Pulse Ox 93 03/02/25 09:32 O2 Del Method Nasal Cannula 03/02/25 08:44 O2 Flow Rate 3 03/02/25 08:44 BMI result Body Mass Index 24.0 Const: General: comfortable and no acute distress O rientation/consciousness: patient oriented x3 HEENT: Other: Unremarkable Head: Yes normal to inspection Neck: Neck: Yes normal visual inspection Chest: Chest palpation & inspection: normal inspection of the chest Resp: Other: Bilateral crackles Cardio: Palpation: normal PMI Heart sounds: S1 normal heart sound present, S2 normal heart sound present, no gallops, no murmurs and no rubs GI: Palpation (GI): Soft to palpation Back/Spine/Pelvis: Other: unremarkable Skin: General skin exam: no rashes or lesions noted Neuro: General: patient oriented x3 Extrem: General: Yes normal to inspection Psych: Mental Status: mental status grossly normal Objective Labs and Meds 03/02/25 04:27 03/02/25 04:27 Lab results: Laboratory Results - last 24 hr 03/01/25 03/01/25 03/01/25 14:32 14:32 16:58 WBC 8.0 RBC 3.49 L Hgb 10.2 L Hct 31.1 L MCV 89.1 MCH 29.2 MCHC 32.8 RDW 14.6 Plt Count 153 L D MPV 9.7 Immature Gran % (Auto) 0.7 H Neut % (Auto) 84.1 H Lymph % (Auto) 8.4 L Sharkey % (Auto) 5.7 Eos % (Auto) 0.6 Baso % (Auto) 0.5 Lymph # (Auto) 0.7 L [place] # (Auto) 0.5 Eos # (Auto) 0.1 Baso # (Auto) 0.0 Abs Immat Gran (auto) 0.06 H Absolute Neuts (auto) 6.7 Absolute Nucleated RBC 0.000 Nucleated RBC % (auto) 0.0 Sodium 133 L Potassium 4.0 Chloride 98 Carbon Dioxide 23 Anion Gap 16 BUN 29 H Creatinine 1.86 H Estim Creat Clear Calc 21.4 Estimated GFR 26 Random Glucose 122 H Lactic Acid Calcium 8.6 D Magnesium 1.9 Total Bilirubin 1.8 H AST 22 ALT 8 Alkaline Phosphatase 50 Troponin I High Sens 384.9 H* D 317.5 H* NT-Pro-B Natriuret Pep 9340.5 H Cancelled Total Protein 7.9 Albumin 3.5 Urine Color Urine Appearance Urine pH Ur Specific [place] Urine Protein Urine Glucose (UA) Urine Ketones Urine Blood Urine Nitrite Ur Leukocyte Esterase Urine RBC Urine WBC Ur Squamous Epith Cells Cystine Crystals Urine Bacteria Hyaline Casts Granular Casts Ur Random Sodium Ur Random Potassium Urine Creatinine Influenza Type A (PCR) NEGATIVE Influenza Type B (PCR) NEGATIVE RSV RNA Qual (PCR) NEGATIVE SARS-CoV-2 RNA (RT-PCR) NEGATIVE 03/01/25 03/01/25 03/02/25 19:24 22:15 04:27 WBC 7.0 RBC 3.23 L Hgb 9.5 L Hct 28.8 L MCV 89.2 MCH 29.4 MCHC 33.0 RDW 14.2 Plt Count 150 L MPV 10.2 Immature Gran % (Auto) 0.7 H Neut % (Auto) 73.4 H Lymph % (Auto) 17.1 L Sharkey % (Auto) 6.2 Eos % (Auto) 2.0 Baso % (Auto) 0.6 Lymph # (Auto) 1.2 Sharkey # (Auto) 0.4 Eos # (Auto) 0.1 Baso # (Auto) 0.0 Abs Immat Gran (auto) 0.05 H Absolute Neuts (auto) 5.1 Absolute Nucleated RBC 0.000 Nucleated RBC % (auto) 0.0 Sodium 134 L Potassium 3.7 Chloride 103 Carbon Dioxide 21 L Anion Gap 14 BUN 24 H Creatinine 1.24 Estim Creat Clear Calc 32.1 Estimated GFR 41 Random Glucose 94 Lactic Acid 0.9 Calcium 8.3 L Magnesium Total Bilirubin 1.1 H AST 19 ALT 6 Alkaline Phosphatase 45 Troponin I High Sens NT-Pro-B Natriuret Pep Total Protein 6.7 Albumin 2.9 L Urine Color Yellow Urine Appearance Cloudy Urine pH 5.5 Ur Specific [place] 1.015 Urine Protein 100 (2+) H Urine Glucose (UA) Negative Urine Ketones Negative Urine Blood Trace H Urine Nitrite Negative Ur Leukocyte Esterase Moderate (2+) H Urine RBC 0-2 Urine WBC 21-50 H Ur Squamous Epith Cells 3-5 Cystine Crystals Present Urine Bacteria None Seen Hyaline Casts 3-5 Granular Casts Present Ur Random Sodium < 20.0 Ur Random Potassium 41.8 Urine Creatinine 107.13 Influenza Type A (PCR) Influenza Type B (PCR) RSV RNA Qual (PCR) SARS-CoV-2 RNA (RT-PCR) ECG Interpretation: EKG shows atrial fibrillation with rapid response at 143/Min; inferior and anterolateral ST depression. In the previous EKG from 2023, sinus rhythm. Imaging Radiologist's impression: Impressions Chest X-Ray 03/01/25 15:08 IMPRESSION: Left lower lung/retrocardiac consolidation. Possible small left pleural effusion. Nonspecific mild increased interstitial prominence. Electronically signed by: Morgan Donnelly MD 03/01/2025 03:16 PM [facility] Assessment and Plan (1) Atrial fibrillation with rapid ventricular response: Status: Acute Plan Initial EKG with atrial fibrillation/rapid rate but currently better. Troponins are elevated which are most likely from the atrial fibrillation with rapid rate but she could have underlying coronary disease at her age. However, clinically she has got no angina. Elevated cardiac BNP could be from left heart or right heart dysfunction as well as atrial fibrillation. Her blood pressure is on the lower side and hence we do not have much room for rate control medications. Can complete a full digoxin load and beta-blockers as the blood pressure tolerates. Anticoagulation. We will get an echocardiogram. Procedures Date of Service Date of Service: 03/02/25
[2025-03-02] MEDS: levalbuterol HCL 1.25 MG, Ipratropium Bromide 0.5 MG INHALE ×2 (11:38→17:01)
--- NOTE | 2025-03-02 13:20 | MHC.CM.PN ---
CM addressed IMM with Patient. PT is recommending Inpatient Pulmonary Rehab; Patient hopes to return home. Patient lives alone in a house and her Son/HCP/Jey lives next door and will transport at dc,if dc is ultimately to home. CM has initiated and will follow for dc planning. PCP is Dr. Gui Bernal.
--- NOTE | 2025-03-02 14:03 | PC.NURSE ---
Pt ambulatory to [facility] with portable oxygen tank with a steady gait. Urine sample obtained and sent to lab.
[2025-03-02 14:15] LABS: Appearance Urine Cloudy; Glucose Urine UA Negative (Negative); PH 5.5 (5.0-9.0); Specific Gravity - Urine 1.010 (1.005-1.025); UMIC TRIGGER UACC YES
[2025-03-02 14:29] LABS: UACC Culture Trigger YES
--- NOTE | 2025-03-02 14:34 | HO.PM.IMPN ---
Subjective Subjective Date of Service: 03/02/25 Interval History: Patient seen examined at bedside this morning, patient with atrial fibrillation, low normal blood pressures, continues with shortness of breath. Review of Systems Review of Systems: Yes all other systems are reviewed and are negative Physical Exam Exam: Exam: General: AxOx3, on supplemental oxygen Head: AT/NC ENT: Moist mucous membranes Neck: supple CVS; irregularly irregular rate and rhythm Lungs: Coarse bilateral breath sounds with bilateral rales Abd: Soft non tender, non distended Ext: No edema and no calf tenderness MSK: moving all 4 limbs Skin: No cyanosis or edema Psych: Cooperative with exam Neurology: no focal deficit Vital Signs: Vital Signs: Last Vital Signs Temp 97.6 F 03/02/25 08:44 Pulse 109 H 03/02/25 12:57 Resp 18 03/02/25 12:57 BP 116/65 03/02/25 12:57 Pulse Ox 94 03/02/25 12:57 O2 Del Method Nasal Cannula 03/02/25 12:57 O2 Flow Rate 3 03/02/25 12:57 BMI result Body Mass Index 24.0 Objective Data Active Medications Acetaminophen (Acetaminophen 325 Mg Tablet) 650 mg PO Q6H PRN PRN Reason: Pain, Mild 1-3,fever,headache Apixaban (Apixaban 5 Mg Tablet) 5 mg PO BID [facility] Calcium Carbonate (Calcium Carbonate 750 Mg Tab.Chew) 750 mg PO Q4H PRN PRN Reason: Heartburn Levalbuterol HCl 1.25 mg/ (Ipratropium [place] 0.5 mg) 0 mg INHALE RQ6H [facility] Last Admin: 03/02/25 11:38 Dose: 1 dose Documented By: NANCIE Digoxin (Digoxin 0.5 Mg/2 Ml Ampul) 0.25 mg IVPUSH Q6H [facility]; Protocol Stop: 03/02/25 16:46 Last Admin: 03/02/25 11:05 Dose: 0.25 mg Documented By: JUDITH Fluticasone/Umeclidinium/Vilanterol (Fluticasone/Umeclidinium/Vilanterol 100/62.5/25 Blst.W.Dev) 1 puff INHALE RDAILY [facility] On Hold: 03/02/25 09:25 Resume: 03/07/25 07:00 Last Admin: 03/02/25 08:30 Dose: 1 puff Documented By: JUDITH Ceftriaxone Sodium 1 gm/ (Sodium Chloride) 50 mls @ 100 mls/hr IV Q24H [facility] Levetiracetam (Levetiracetam 500 Mg Tablet) 500 mg PO BID [facility] Last Admin: 03/02/25 08:46 Dose: 500 mg Documented By: JUDITH Levothyroxine Sodium (Levothyroxine Sodium 75 Mcg Tablet) 75 mcg PO DAILY@0600 [facility] Last Admin: 03/02/25 06:23 Dose: 75 mcg Documented By: KIMBERLI Magnesium Hydroxide (Milk Of Magnesia 30 Ml Oral.Susp) 30 ml PO DAILY PRN PRN Reason: Constipation Melatonin (Melatonin 3 Mg Tablet) 6 mg PO BEDTIME PRN PRN Reason: Insomnia Methylprednisolone Sodium Succinate (Methylprednisolone Sod Succ 40 Mg/Ml Vial) 40 mg IVPUSH Q6H [facility] Last Admin: 03/02/25 09:45 Dose: 40 mg Documented By: JUDITH Non-Formulary Medication (Cyclosporine [Restasis]) 1 drop EYE-BOTH BID [facility] Omeprazole (Omeprazole 20 Mg Capsule.Dr) 20 mg PO DAILY@1630 [facility] Ondansetron HCl (Ondansetron Hcl 4 Mg/2 Ml Vial) 4 mg IVPUSH Q8H PRN PRN Reason: Nausea and Vomiting Sodium Chloride (0.9 % Sodium Chloride Flush 3 Ml Syringe) 3 ml IVFLUSH QSHIFT [facility] Last Admin: 03/02/25 08:46 Dose: 3 ml Documented By: JUDITH Labs 03/02/25 04:27 03/02/25 04:27 Labs: Laboratory Results - last 24 hr 03/01/25 03/01/25 03/01/25 14:32 14:32 16:58 MCV 89.1 MCH 29.2 MCHC 32.8 RDW 14.6 Plt Count 153 L D MPV 9.7 Immature Gran % (Auto) 0.7 H Neut % (Auto) 84.1 H Lymph % (Auto) 8.4 L [place] % (Auto) 5.7 Eos % (Auto) 0.6 Baso % (Auto) 0.5 Lymph # (Auto) 0.7 L [place] # (Auto) 0.5 Eos # (Auto) 0.1 Baso # (Auto) 0.0 Abs Immat Gran (auto) 0.06 H Absolute Neuts (auto) 6.7 Absolute Nucleated RBC 0.000 Nucleated RBC % (auto) 0.0 Anion Gap 16 Estim Creat Clear Calc 21.4 Estimated GFR 26 Random Glucose 122 H Lactic Acid Calcium 8.6 D Magnesium 1.9 Total Bilirubin 1.8 H AST 22 ALT 8 Alkaline Phosphatase 50 Troponin I High Sens 384.9 H* D 317.5 H* NT-Pro-B Natriuret Pep 9340.5 H Cancelled Total Protein 7.9 Albumin 3.5 Urine Color Urine Appearance Urine pH Ur Specific [place] Urine Protein Urine Glucose (UA) Urine Ketones Urine Blood Urine Nitrite Ur Leukocyte Esterase Urine RBC Urine WBC Ur Squamous Epith Cells Cystine Crystals Urine Bacteria Hyaline Casts Granular Casts Urine Yeast Ur Random Sodium Ur Random Potassium Urine Creatinine Influenza Type A (PCR) NEGATIVE Influenza Type B (PCR) NEGATIVE RSV RNA Qual (PCR) NEGATIVE SARS-CoV-2 RNA (RT-PCR) NEGATIVE 03/01/25 03/01/25 03/02/25 19:24 22:15 04:27 MCV 89.2 MCH 29.4 MCHC 33.0 RDW 14.2 Plt Count 150 L MPV 10.2 Immature Gran % (Auto) 0.7 H Neut % (Auto) 73.4 H Lymph % (Auto) 17.1 L [place] % (Auto) 6.2 Eos % (Auto) 2.0 Baso % (Auto) 0.6 Lymph # (Auto) 1.2 [place] # (Auto) 0.4 Eos # (Auto) 0.1 Baso # (Auto) 0.0 Abs Immat Gran (auto) 0.05 H Absolute Neuts (auto) 5.1 Absolute Nucleated RBC 0.000 Nucleated RBC % (auto) 0.0 Anion Gap 14 Estim Creat Clear Calc 32.1 Estimated GFR 41 Random Glucose 94 Lactic Acid 0.9 Calcium 8.3 L Magnesium Total Bilirubin 1.1 H AST 19 ALT 6 Alkaline Phosphatase 45 Troponin I High Sens NT-Pro-B Natriuret Pep Total Protein 6.7 Albumin 2.9 L Urine Color Yellow Urine Appearance Cloudy Urine pH 5.5 Ur Specific [place] 1.015 Urine Protein 100 (2+) H Urine Glucose (UA) Negative Urine Ketones Negative Urine Blood Trace H Urine Nitrite Negative Ur Leukocyte Esterase Moderate (2+) H Urine RBC 0-2 Urine WBC 21-50 H Ur Squamous Epith Cells 3-5 Cystine Crystals Present Urine Bacteria None Seen Hyaline Casts 3-5 Granular Casts Present Urine Yeast Ur Random Sodium < 20.0 Ur Random Potassium 41.8 Urine Creatinine 107.13 Influenza Type A (PCR) Influenza Type B (PCR) RSV RNA Qual (PCR) SARS-CoV-2 RNA (RT-PCR) 03/02/25 13:54 MCV MCH MCHC RDW Plt Count MPV Immature Gran % (Auto) Neut % (Auto) Lymph % (Auto) [place] % (Auto) Eos % (Auto) Baso % (Auto) Lymph # (Auto) [place] # (Auto) Eos # (Auto) Baso # (Auto) Abs Immat Gran (auto) Absolute Neuts (auto) Absolute Nucleated RBC Nucleated RBC % (auto) Anion Gap Estim Creat Clear Calc Estimated GFR Random Glucose Lactic Acid Calcium Magnesium Total Bilirubin AST ALT Alkaline Phosphatase Troponin I High Sens NT-Pro-B Natriuret Pep Total Protein Albumin Urine Color Yellow Urine Appearance Cloudy Urine pH 5.5 Ur Specific [place] 1.010 Urine Protein 30 (1+) H Urine Glucose (UA) Negative Urine Ketones Negative Urine Blood Trace H Urine Nitrite Negative Ur Leukocyte Esterase Small (1+) H Urine RBC 0-2 Urine WBC 0-5 Ur Squamous Epith Cells 3-5 Cystine Crystals Urine Bacteria None Seen Hyaline Casts 0-2 Granular Casts Urine Yeast Present Ur Random Sodium Ur Random Potassium Urine Creatinine Influenza Type A (PCR) Influenza Type B (PCR) RSV RNA Qual (PCR) SARS-CoV-2 RNA (RT-PCR) Assessment and Plan (1) Acute respiratory failure with hypoxia: Status: Acute (2) Acute kidney injury: Status: Acute (3) Atrial fibrillation with rapid ventricular response: Status: Acute Plan Assessment: 84-year-old female with PMH of HLD, COPD, GERD, JANET on CPAP and Hypothyroidism who living independently at home and previously mostly functional, presents for evaluation after four days of generalized weakness, sore throat, nonproductive cough, sneezing, and decreased oral intake due to poor appetite. Acute hypoxic respiratory failure 2/2 LLL Pneumonia Pneumonia CXR showing LLL focal opacity which might represent pneumonia Cover with Ceftriaxone and Azithromycin Will initiate IV steroids, scheduled Xopenex and atrovent, flutter valve and incentive spirometer Follow cultures Send sputum cx CORI, improving 1.8->1.2 avoid nephrotoxic meds follow I\O SEiuzre continue Keppra, monitor for breakthrough seizures New onset Afib w RvR Had Digoxin and Cardizem IV doses in ED and started on Cardizem drip with fair response Will give digoxin 250mg x2 extra doses continue Eliquis 5mg BID Keep on Tele Cardiology consulted and following Suspect type 2 NSTEMI with Afib RvR continue statin, abs and anticoagulation Elevated Bilirubin Likely 2/2 type 2 nstemi and hypopefusion with dehydration continue to monitor DVT PPx Eliquis Total time managing care of this patient today: 55 minutes. Quality Stroke Does the patient have a stroke diagnosis?: No VTE Prior VTE?: No VTE Risk Level:: Medical - moderate - high VTE Device Contraindication: Treatment Not Indicated VTE Drug Contraindication: N/A - Med Ordered
[2025-03-03] VITALS (12 sets, daily range): BP systolic 109–139; BP diastolic 57–92; PULSE 76–127; RESP 15–20; TEMP 36.3–36.6; O2SAT 92–97
[2025-03-03] MEDS: levalbuterol HCL 1.25 MG, Ipratropium Bromide 0.5 MG INHALE ×3 (05:23→17:40)
[2025-03-03 09:13] LABS: Hematocrit 31.6 % (37.0-47.0); Hemoglobin 10.2 g/dl (12.0-16.0); Mean Corpuscular HGB Conc 32.3 g/dl (31.0-35.0); Mean Corpuscular Hemoglobin 29.1 pg (27.0-33.0); Mean Corpuscular Volume 90.0 fL (80.0-98.0); NRBC Abs Auto 0.000 X10*3/uL (0.0-0.012); NRBC Pct Auto 0.0 /100WBC (0.0-0.2); Platelet Count 181 X10*3/uL (160-400); Red Blood Count 3.51 X10*6/uL (4.20-5.50); White Blood Count 5.8 X10*3/uL (4.8-10.8)
[2025-03-03] MEDS: 0.9 % Sodium Chloride Flush 3 ML SYRINGE IVFLUSH ×3 (09:18→21:08)
[2025-03-03 09:26] LABS: Anion Gap 15 (12-20); Blood Urea Nitrogen 28 mg/dL (9-16); Calcium 8.9 mg/dL (8.4-10.2); Carbon Dioxide 22 mmol/L (22-29); Chloride 104 mmol/L (96-108); Creatinine Clr Calc Pharmacy 38.3; Estimated Glomerular Filt Rate 51; Potassium 4.0 mmol/L (3.3-5.1); Sodium 137 mmol/L (135-145)
--- NOTE | 2025-03-03 10:55 | PM.PNCARD ---
Subjective Subjective Date of Service: 03/03/25 Interval history: She remains in atrial fibrillation but she does not have any active cardiac complaints at this time. Review of Systems Review of Systems Yes all other systems are reviewed and are negative Constitutional: Reports as per HPI and Reports no additional constitutional complaints Eyes: Reports as per HPI and Denies no additional eye complaints Denies system reviewed and no additional complaints, except as documented and Reports as per HPI Cardiovascular: Reports as per HPI, Reports no additional cardiovascular complaints, Denies acrocyanosis, Denies cool extremities, Denies chest pain, Denies leg edema, Denies lightheadedness, Denies palpitations and Denies dyspnea Respiratory: Reports as per HPI, Denies no additional respiratory complaints and Denies dyspnea Gastrointestinal: Reports as per HPI and Denies no additional gastrointestinal complaints Genitourinary: Reports as per HPI Musculoskeletal: Reports no additional musculoskeletal complaints and Reports as per HPI Skin/Breast: Reports system reviewed and no additional complaints, except as docu Reports system reviewed and no additional complaints, except as documented and Reports as per HPI Psychiatric: Reports no additional psychiatric complaints and Reports as per HPI Endocrine: Reports no additional endocrine complaints, Reports as per HPI and Denies palpitations Hematologic/Lymphatic: Reports no additional hematologic/lymphatic complaints and Reports as per HPI Allergic/Immunologic: Reports no additional allergic/immunologic complaints and Reports as per HPI Physical Exam Vital Signs: Last Vital Signs Temp 97.5 F 03/03/25 07:04 Pulse 83 03/03/25 07:04 Resp 16 03/03/25 07:04 BP 132/75 03/03/25 07:04 Pulse Ox 92 03/03/25 07:04 O2 Del Method Nasal Cannula 03/03/25 07:04 O2 Flow Rate 2 03/03/25 07:04 BMI result Body Mass Index 24.1 Const General: comfortable and no acute distress Orientation/consciousness: patient oriented x3 HEENT Other: Unremarkable Head: Yes normal to inspection Neck Neck: Yes normal visual inspection Chest Chest palpation & inspection: normal inspection of the chest Resp Other: Bilateral crackles Cardio Palpation: normal PMI Heart sounds: S1 normal heart sound present, S2 normal heart sound present, no gallops, no murmurs and no rubs GI Palpation (GI): Soft to palpation Back/Spine/Pelvis Other: unremarkable Skin General skin exam: no rashes or lesions noted Neuro General: patient oriented x3 Extrem General: Yes normal to inspection Psych Mental Status: mental status grossly normal Objective Labs and Meds 03/03/25 08:29 03/03/25 08:29 Lab results: Laboratory Results - last 24 hr 03/02/25 03/03/25 13:54 08:29 WBC 5.8 RBC 3.51 L Hgb 10.2 L Hct 31.6 L MCV 90.0 MCH 29.1 MCHC 32.3 RDW 13.9 Plt Count 181 MPV 10.7 Absolute Nucleated RBC 0.000 Nucleated RBC % (auto) 0.0 Sodium 137 Potassium 4.0 Chloride 104 Carbon Dioxide 22 Anion Gap 15 BUN 28 H Creatinine 1.04 Estim Creat Clear Calc 38.3 Estimated GFR 51 Random Glucose 171 H Calcium 8.9 D Urine Color Yellow Urine Appearance Cloudy Urine pH 5.5 Ur Specific [place] 1.010 Urine Protein 30 (1+) H Urine Glucose (UA) Negative Urine Ketones Negative Urine Blood Trace H Urine Nitrite Negative Ur Leukocyte Esterase Small (1+) H Urine RBC 0-2 Urine WBC 0-5 Ur Squamous Epith Cells 3-5 Urine Bacteria None Seen Hyaline Casts 0-2 Urine Yeast Present Progress Note: A&P Assessment and plan (1) Atrial fibrillation with rapid ventricular response: Status: Acute Plan Initial EKG with atrial fibrillation/rapid rate but currently better. Troponins are elevated which are most likely from the atrial fibrillation with rapid rate but she could have underlying coronary disease at her age. However, clinically she has got no angina. Elevated cardiac BNP could be from left heart or right heart dysfunction as well as atrial fibrillation. However, in the echocardiogram, LVEF is reasonably preserved at 52%. No significant valvular findings. Blood pressure was lowish initially but currently it is much better. Hence we can probably start her on some Cardizem and keep on digoxin for rate control. Anticoagulation. Time Spent With Patient Time: Total time managing care of this patient today ____ minutes. Progress Note: Quality Stroke Does the patient have a stroke diagnosis?: No Procedures Date of Service Date of Service: 03/03/25
--- NOTE | 2025-03-03 15:33 | HO.PM.IMPN ---
Subjective Subjective Date of Service: 03/03/25 Interval History: Patient seen and examined at bedside this morning, patient having episodes of atrial fibrillation, with worsening shortness of breath, pulmonology consulted. Review of Systems Review of Systems: Yes all other systems are reviewed and are negative Physical Exam Exam: Exam: General: AxOx3, shortness of breath with supplemental oxygen Head: AT/NC ENT: Moist mucous membranes Neck: supple CVS; irregularly irregular Lungs: Clear bilateral breath sounds, no wheezes or crackles Abd: Soft non tender, non distended Ext: No edema and no calf tenderness MSK: moving all 4 limbs Skin: No cyanosis or edema Psych: Cooperative with exam Neurology: no focal deficit Vital Signs: Vital Signs: Last Vital Signs Temp 97.3 F 03/03/25 11:12 Pulse 110 H 03/03/25 12:22 Resp 15 03/03/25 11:45 BP 137/85 03/03/25 12:22 Pulse Ox 96 03/03/25 11:12 O2 Del Method Nasal Cannula 03/03/25 11:12 O2 Flow Rate 2 03/03/25 11:12 BMI result Body Mass Index 24.1 Objective Data Active Medications Acetaminophen (Acetaminophen 325 Mg Tablet) 650 mg PO Q6H PRN PRN Reason: Pain, Mild 1-3,fever,headache Apixaban (Apixaban 5 Mg Tablet) 5 mg PO BID [facility] Last Admin: 03/03/25 09:18 Dose: 5 mg Documented By: SHANTAL Calcium Carbonate (Calcium Carbonate 750 Mg Tab.Chew) 750 mg PO Q4H PRN PRN Reason: Heartburn Levalbuterol HCl 1.25 mg/ (Ipratropium [place] 0.5 mg) 0 mg INHALE RQ6H [facility] Last Admin: 03/03/25 11:42 Dose: 2 dose Documented By: RIVAS Digoxin (Digoxin 0.125 Mg Tablet) 0.0625 mg PO DAILY [facility]; Protocol Last Admin: 03/03/25 11:42 Dose: 0.0625 mg Documented By: SHANTAL Diltiazem HCl (Diltiazem Hcl 60 Mg Tablet) 60 mg PO QID [facility]; Protocol Last Admin: 03/03/25 12:22 Dose: 60 mg Documented By: SHANTAL Fluticasone/Umeclidinium/Vilanterol (Fluticasone/Umeclidinium/Vilanterol 100/62.5/25 Blst.W.Dev) 1 puff INHALE RDAILY [facility] On Hold: 03/02/25 09:25 Resume: 03/07/25 07:00 Last Admin: 03/02/25 08:30 Dose: 1 puff Documented By: JUDITH Ceftriaxone Sodium 1 gm/ (Sodium Chloride) 50 mls @ 100 mls/hr IV Q24H [facility] Last Infusion: 03/02/25 17:38 Dose: Infused Documented By: SUKHI Doxycycline Hyclate 100 mg/ (Sodium Chloride) 250 mls @ 166.67 mls/hr IV Q12H [facility] Last Infusion: 03/03/25 14:13 Dose: Infused Documented By: SHANTAL Levetiracetam (Levetiracetam 500 Mg Tablet) 500 mg PO BID [facility] Last Admin: 03/03/25 09:18 Dose: 500 mg Documented By: SHANTAL Levothyroxine Sodium (Levothyroxine Sodium 75 Mcg Tablet) 75 mcg PO DAILY@0600 [facility] Last Admin: 03/03/25 04:53 Dose: 75 mcg Documented By: GUILLERMO Magnesium Hydroxide (Milk Of Magnesia 30 Ml Oral.Susp) 30 ml PO DAILY PRN PRN Reason: Constipation Melatonin (Melatonin 3 Mg Tablet) 6 mg PO BEDTIME PRN PRN Reason: Insomnia Methylprednisolone Sodium Succinate (Methylprednisolone Sod Succ 40 Mg/Ml Vial) 40 mg IVPUSH Q6H [facility] Last Admin: 03/03/25 09:18 Dose: 40 mg Documented By: SHANTAL Omeprazole (Omeprazole 20 Mg Capsule.) 20 mg PO DAILY@1630 [facility] Last Admin: 03/02/25 16:46 Dose: 20 mg Documented By: SUKHI Ondansetron HCl (Ondansetron Hcl 4 Mg/2 Ml Vial) 4 mg IVPUSH Q8H PRN PRN Reason: Nausea and Vomiting Sodium Chloride (0.9 % Sodium Chloride Flush 3 Ml Syringe) 3 ml IVFLUSH QSHIFT [facility] Last Admin: 03/03/25 09:18 Dose: 3 ml Documented By: SHANTAL Labs 03/03/25 08:29 03/03/25 08:29 Labs: Laboratory Results - last 24 hr 03/03/25 08:29 MCV 90.0 MCH 29.1 MCHC 32.3 RDW 13.9 Plt Count 181 MPV 10.7 Absolute Nucleated RBC 0.000 Nucleated RBC % (auto) 0.0 Anion Gap 15 Estim Creat Clear Calc 38.3 Estimated GFR 51 Random Glucose 171 H Calcium 8.9 D Microbiology Microbiology Results: Microbiology 03/02/25 15:56 Urine Culture - Final Urine clean catch - Clean Catch Midstream No growth. Assessment and Plan (1) Atrial fibrillation with rapid ventricular response: Status: Acute (2) Acute respiratory failure with hypoxia: Status: Acute (3) Pneumonia: Status: Acute Plan Assessment: 84-year-old female with PMH of HLD, COPD, GERD, JANET on CPAP and Hypothyroidism who living independently at home and previously mostly functional, presents for evaluation after four days of generalized weakness, sore throat, nonproductive cough, sneezing, and decreased oral intake due to poor appetite. Acute hypoxic respiratory failure 2/2 LLL Pneumonia Pneumonia CXR showing LLL focal opacity which might represent pneumonia Cover with Ceftriaxone and Doxy Continue IV steroids, scheduled Xopenex and atrovent, flutter valve and incentive spirometer Follow cultures Will request CT with contrast to rule out PE Pulmonology consulted CORI, resolved 1.8->1.2 -> 1.0 avoid nephrotoxic meds follow I\O Seiuzre continue Keppra, monitor for breakthrough seizures Afib w RvR Had Digoxin and Cardizem IV doses in ED later digoxin 250mg x2 Will initiate diltiazem 60mg TID and digoxin qd continue Eliquis 5mg BID Keep on Tele Cardiology consulted and following Suspect type 2 NSTEMI with Afib RvR continue statin, abs and anticoagulation Elevated Bilirubin Likely 2/2 type 2 nstemi and hypopefusion with dehydration continue to monitor DVT PPx Eliquis Total time managing care of this patient today: 55 minutes. Quality Stroke Does the patient have a stroke diagnosis?: No VTE Prior VTE?: No VTE Risk Level:: Medical - moderate - high VTE Device Contraindication: Treatment Not Indicated VTE Drug Contraindication: N/A - Med Ordered
--- NOTE | 2025-03-03 16:36 | PM.CNPUL ---
History of Present Illness History of Present Illness Consult date: 03/03/25 Chief complaint: New Afib RvR, CORI Narrative: This is an inpatient pulmonary consultation. The patient is a 84-year-old female with PMH of HLD, COPD, GERD and Hypothyroidism who living independently at home and previously mostly functional, presents for evaluation after four days of generalized weakness, sore throat, nonproductive cough, sneezing, and decreased oral intake due to poor appetite. On arrival, she was found to have a heart rate in the 150s. EKG demonstrated new-onset atrial fibrillation. She received metoprolol and digoxin, with improvement in her heart rate from the 130s to the 90s. Initial troponin was elevated without significant delta change on repeat. BNP elevated as CXR showing evidence of LLL infiltrates and pleural effusion small in size. I did personally review her last CT scan of the chest back in December 2024 at [facility] demonstrating some tree-in-bud some bronchiectatic changes. But no evidence of any disease in the left lower lobe. I did also look at the x-ray that from [place] where she had the opacity in the left lower lobe suggesting also an effusion. The patient also had issues with atrial fibrillation and also increased cardiac injury. Therefore, will have her get a CTA here to rule out thromboembolic disease and also to further address the pneumonia. The patient currently is being covered with ceftriaxone and will go ahead and add doxycycline to her regimen. The patient also was given an Aerobika for fluttering device and mucus clearance. 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 Review of Systems Review of Systems: Yes all other systems are reviewed and are negative Constitutional: Constitutional: Reports as per HPI and Reports no additional constitutional complaints Eyes: Eyes: Reports as per HPI and Denies no additional eye complaints ENT: Denies system reviewed and no additional complaints, except as documented and Reports as per HPI Cardiovascular: Cardiovascular: Reports as per HPI, Reports no additional cardiovascular complaints, Denies acrocyanosis, Denies cool extremities, Denies chest pain, Denies leg edema, Denies lightheadedness, Denies palpitations and Denies dyspnea Respiratory: Respiratory: Reports as per HPI, Denies no additional respiratory complaints and Denies dyspnea Gastrointestinal: Gastrointestinal: Reports as per HPI and Denies no additional gastrointestinal complaints Genitourinary: Genitourinary: Reports as per HPI Musculoskeletal: Musculoskeletal: Reports no additional musculoskeletal complaints and Reports as per HPI Integumentary/Breasts: Skin/Breast: Reports system reviewed and no additional complaints, except as docu Neurologic: Reports system reviewed and no additional complaints, except as documented and Reports as per HPI Psychiatric: Psychiatric: Reports no additional psychiatric complaints and Reports as per HPI Endocrine: Endocrine: Reports no additional endocrine complaints, Reports as per HPI and Denies palpitations Hematologic/Lymphatic: Hematologic/Lymphatic: Reports no additional hematologic/lymphatic complaints and Reports as per HPI Allergic/Immunologic: Allergic/Immunologic: Reports no additional allergic/immunologic complaints and Reports as per HPI PMFSH Past Medical History Medical History Aortic aneurysm Social History Social History Household Members: None Housing: Apartment Do you presently have visiting nurse or other home services: No Alcohol intake: never Patient Tobacco Use Status: Never used Tobacco Advance Directives Date on File: 03/02/25 service: No Meds Allergies Allergy/AdvReac Type Severity Reaction Status Date / Time gluten AdvReac Abdominal Verified 03/02/25 04:30 Pain Active Medications: Current Medications Acetaminophen (Acetaminophen 325 Mg Tablet) 650 mg PO Q6H PRN PRN Reason: Pain, Mild 1-3,fever,headache Apixaban (Apixaban 5 Mg Tablet) 5 mg PO BID [facility] Last Admin: 03/03/25 09:18 Dose: 5 mg Calcium Carbonate (Calcium Carbonate 750 Mg Tab.Chew) 750 mg PO Q4H PRN PRN Reason: Heartburn Levalbuterol HCl 1.25 mg/ (Ipratropium Julian 0.5 mg) 0 mg INHALE RQ6H [facility] Last Admin: 03/03/25 11:42 Dose: 2 dose Digoxin (Digoxin 0.125 Mg Tablet) 0.0625 mg PO DAILY [facility]; Protocol Last Admin: 03/03/25 11:42 Dose: 0.0625 mg Diltiazem HCl (Diltiazem Hcl 60 Mg Tablet) 60 mg PO QID [facility]; Protocol Last Admin: 03/03/25 12:22 Dose: 60 mg Fluticasone/Umeclidinium/Vilanterol (Fluticasone/Umeclidinium/Vilanterol 100/62.5/25 Blst.W.Dev) 1 puff INHALE DONNA [facility] On Hold: 03/02/25 09:25 Resume: 03/07/25 07:00 Last Admin: 03/02/25 08:30 Dose: 1 puff Ceftriaxone Sodium 1 gm/ (Sodium Chloride) 50 mls @ 100 mls/hr IV Q24H [facility] Last Infusion: 03/02/25 17:38 Dose: Infused Doxycycline Hyclate 100 mg/ (Sodium Chloride) 250 mls @ 166.67 mls/hr IV Q12H [facility] Last Infusion: 03/03/25 14:13 Dose: Infused Levetiracetam (Levetiracetam 500 Mg Tablet) 500 mg PO BID [facility] Last Admin: 03/03/25 09:18 Dose: 500 mg Levothyroxine Sodium (Levothyroxine Sodium 75 Mcg Tablet) 75 mcg PO DAILY@0600 [facility] Last Admin: 03/03/25 04:53 Dose: 75 mcg Magnesium Hydroxide (Milk Of Magnesia 30 Ml Oral.Susp) 30 ml PO DAILY PRN PRN Reason: Constipation Melatonin (Melatonin 3 Mg Tablet) 6 mg PO BEDTIME PRN PRN Reason: Insomnia Methylprednisolone Sodium Succinate (Methylprednisolone Sod Succ 40 Mg/Ml Vial) 40 mg IVPUSH Q6H [facility] Last Admin: 03/03/25 09:18 Dose: 40 mg Omeprazole (Omeprazole 20 Mg Capsule.Dr) 20 mg PO DAILY@1630 [facility] Last Admin: 03/02/25 16:46 Dose: 20 mg Ondansetron HCl (Ondansetron Hcl 4 Mg/2 Ml Vial) 4 mg IVPUSH Q8H PRN PRN Reason: Nausea and Vomiting Sodium Chloride (0.9 % Sodium Chloride Flush 3 Ml Syringe) 3 ml IVFLUSH QSHIFT [facility] Last Admin: 03/03/25 09:18 Dose: 3 ml Home Medications ?Medication ?Instructions ?Recorded ?Confirmed ?Last Taken ?Type atorvastatin 20 mg tablet 20 mg PO DAILY 03/01/25 03/01/25 03/01/25 History cyclosporine 0.05 % eye drops in a 1 drp ophthalmic (eye) BID 03/01/25 03/01/25 03/01/25 History dropperette (Restasis) estradiol 0.01% (0.1 mg/gram) 1 appl vaginal DAILY PRN Vaginal 03/01/25 03/01/25 Unknown History vaginal cream Dryness fluticasone fur. 100 mcg-umeclid 1 ea inhalation DAILY 03/01/25 03/01/25 03/01/25 History 62.5 mcg-vilant 25 mcg inhalat.powder (Trelegy Ellipta) levetiracetam 500 mg tablet 500 mg PO BID 03/01/25 03/01/25 03/01/25 History levothyroxine 75 mcg tablet 75 mcg PO DAILY@0600 03/01/25 03/01/25 03/01/25 History omeprazole 20 mg capsule,delayed 20 mg PO DAILY@1630 03/01/25 03/01/25 02/28/25 History release vitamin B complex 1 cap PO DAILY 03/01/25 03/01/25 03/01/25 History Physical Exam Exam: Exam: General: AxOx3, shortness of breath with supplemental oxygen Head: AT/NC ENT: Moist mucous membranes Neck: supple CVS; irregularly irregular Lungs: Dimished breath sounds+ crackles left base Abd: Soft non tender, non distended Ext: No edema and no calf tenderness MSK: moving all 4 limbs Skin: No cyanosis or edema Psych: Cooperative with exam Neurology: no focal deficit Vital Signs: Vital Signs: Last Vital Signs Temp 97.4 F 03/03/25 15:36 Pulse 95 03/03/25 15:36 Resp 16 03/03/25 15:36 BP 113/62 03/03/25 15:36 Pulse Ox 94 03/03/25 15:36 O2 Del Method Nasal Cannula 03/03/25 15:36 O2 Flow Rate 2 03/03/25 15:36 BMI result Body Mass Index 24.1 Results Laboratory Findings 03/03/25 08:29 03/03/25 08:29 Abnormal lab findings: Abnormal Labs 03/01/25 03/01/25 03/01/25 14:32 16:58 22:15 RBC 3.49 L Hgb 10.2 L Hct 31.1 L Plt Count 153 L D Immature Gran % (Auto) 0.7 H Neut % (Auto) 84.1 H Lymph % (Auto) 8.4 L Lymph # (Auto) 0.7 L Abs Immat Gran (auto) 0.06 H Sodium 133 L Carbon Dioxide BUN 29 H Creatinine 1.86 H Random Glucose 122 H Calcium Total Bilirubin 1.8 H Troponin I High Sens 384.9 H* D 317.5 H* NT-Pro-B Natriuret Pep 9340.5 H Albumin Urine Protein 100 (2+) H Urine Blood Trace H Ur Leukocyte Esterase Moderate (2+) H Urine WBC 21-50 H 03/02/25 03/02/25 03/03/25 04:27 13:54 08:29 RBC 3.23 L 3.51 L Hgb 9.5 L 10.2 L Hct 28.8 L 31.6 L Plt Count 150 L Immature Gran % (Auto) 0.7 H Neut % (Auto) 73.4 H Lymph % (Auto) 17.1 L Lymph # (Auto) Abs Immat Gran (auto) 0.05 H Sodium 134 L Carbon Dioxide 21 L BUN 24 H 28 H Creatinine Random Glucose 171 H Calcium 8.3 L Total Bilirubin 1.1 H Troponin I High Sens NT-Pro-B Natriuret Pep Albumin 2.9 L Urine Protein 30 (1+) H Urine Blood Trace H Ur Leukocyte Esterase Small (1+) H Urine WBC Microbiology: Microbiology 03/02/25 15:56 Urine clean catch - Clean Catch Midstream Urine Culture - Final No growth. Assessment and Plan (1) Pneumonia: Status: Acute (2) Acute respiratory failure with hypoxia: Status: Acute (3) Atrial fibrillation with rapid ventricular response: Status: Acute Plan CPT with flutter valve Continue oxygen supplementation for pulse ox between 90-96% Continue ceftriaxone add doxycycline Sputum culture if able CTA to rule out thromboembolic disease and also to further address the left lower lobe pneumonia and effusion Deep breathing exercises Procedures Date of Service Date of Service: 03/03/25
--- NOTE | 2025-03-03 21:38 | PC.RT ---
Pt refused cpap, Pt did not like our mask and stated she will have family bring in her cpap from home. Pt is on 2L NC.
[2025-03-04] VITALS (12 sets, daily range): BP systolic 118–143; BP diastolic 62–85; PULSE 69–135; RESP 17–20; TEMP 36.4–36.8; O2SAT 91–95
[2025-03-04] MEDS: 0.9 % Sodium Chloride Flush 3 ML SYRINGE IVFLUSH ×3 (07:55→20:31)
--- NOTE | 2025-03-04 10:35 | MHC.CM.PN ---
Patient is agreeable to a local SNF search.
[2025-03-04] MEDS: iohexoL 350 MG/ML 100 ML INFUS..BTL 65 ML IV (10:42)
--- NOTE | 2025-03-04 11:12 | P.PNIM_ITS ---
Subjective Subjective Date of Service: 03/04/25 Interval History: Patient seen examined at bedside this morning, at this time requiring 2 L of oxygen, awaiting to have CTA done to rule out PE. Patient mentions that she is feeling slightly better. Review of Systems Review of Systems: Yes all other systems are reviewed and are negative Physical Exam 2 Exam: Exam: General: AxOx3, shortness of breath with supplemental oxygen Head: AT/NC ENT: Moist mucous membranes Neck: supple CVS; irregularly irregular Lungs: Dimished breath sounds+ crackles left base Abd: Soft non tender, non distended Ext: No edema and no calf tenderness MSK: moving all 4 limbs Skin: No cyanosis or edema Psych: Cooperative with exam Neurology: no focal deficit Vital Signs: Vital Signs: Last Vital Signs Temp 97.6 F 03/04/25 07:45 Pulse 69 03/04/25 07:54 Resp 18 03/04/25 07:45 BP 143/78 H 03/04/25 07:54 Pulse Ox 91 L 03/04/25 07:45 O2 Del Method Nasal Cannula 03/04/25 07:45 O2 Flow Rate 1 03/04/25 07:45 BMI result Body Mass Index 24.1 Objective Data Active Medications Acetaminophen (Acetaminophen 325 Mg Tablet) 650 mg PO Q6H PRN PRN Reason: Pain, Mild 1-3,fever,headache Apixaban (Apixaban 5 Mg Tablet) 5 mg PO BID [facility] Last Admin: 03/04/25 07:55 Dose: 5 mg Documented By: SHANTAL Calcium Carbonate (Calcium Carbonate 750 Mg Tab.Chew) 750 mg PO Q4H PRN PRN Reason: Heartburn Levalbuterol HCl 1.25 mg/ (Ipratropium Hamill 0.5 mg) 0 mg INHALE RQ6H [facility] Last Admin: 03/04/25 05:51 Dose: Not Given Documented By: XAVIER Non-Admin Reason: Patient Refused Digoxin (Digoxin 0.125 Mg Tablet) 0.0625 mg PO DAILY [facility]; Protocol Last Admin: 03/04/25 07:55 Dose: 0.0625 mg Documented By: SHANTAL Diltiazem HCl (Diltiazem Hcl 60 Mg Tablet) 60 mg PO QID [facility]; Protocol Last Admin: 03/04/25 07:54 Dose: 60 mg Documented By: SHANTAL Fluticasone/Umeclidinium/Vilanterol (Fluticasone/Umeclidinium/Vilanterol 100/62.08/22 Blst.W.Dev) 1 puff INHALE RDAILY [facility] On Hold: 03/02/25 09:25 Resume: 03/07/25 07:00 Last Admin: 03/02/25 08:30 Dose: 1 puff Documented By: JUDITH Ceftriaxone Sodium 1 gm/ (Sodium Chloride) 50 mls @ 100 mls/hr IV Q24H [facility] Last Infusion: 03/03/25 17:21 Dose: Infused Documented By: SHANTAL Doxycycline Hyclate 100 mg/ (Sodium Chloride) 250 mls @ 166.67 mls/hr IV Q12H [facility] Last Infusion: 03/04/25 01:56 Dose: Infused Documented By: ELPIDIO Levetiracetam (Levetiracetam 500 Mg Tablet) 500 mg PO BID [facility] Last Admin: 03/04/25 07:55 Dose: 500 mg Documented By: SHANTAL Levothyroxine Sodium (Levothyroxine Sodium 75 Mcg Tablet) 75 mcg PO DAILY@0600 [facility] Last Admin: 03/04/25 06:14 Dose: 75 mcg Documented By: ELPIDIO Magnesium Hydroxide (Milk Of Magnesia 30 Ml Oral.Susp) 30 ml PO DAILY PRN PRN Reason: Constipation Melatonin (Melatonin 3 Mg Tablet) 6 mg PO BEDTIME PRN PRN Reason: Insomnia Methylprednisolone Sodium Succinate (Methylprednisolone Sod Succ 40 Mg/Ml Vial) 40 mg IVPUSH Q6H [facility] Last Admin: 03/04/25 07:54 Dose: 40 mg Documented By: SHANTAL Omeprazole (Omeprazole 20 Mg Capsule.Dr) 20 mg PO DAILY@1630 [facility] Last Admin: 03/03/25 16:52 Dose: 20 mg Documented By: SHANTAL Ondansetron HCl (Ondansetron Hcl 4 Mg/2 Ml Vial) 4 mg IVPUSH Q8H PRN PRN Reason: Nausea and Vomiting Sodium Chloride (0.9 % Sodium Chloride Flush 3 Ml Syringe) 3 ml IVFLUSH QSHIFT [facility] Last Admin: 03/04/25 07:55 Dose: 3 ml Documented By: SHANTAL Labs 03/03/25 08:29 03/03/25 08:29 Microbiology Microbiology Results: Microbiology 03/02/25 15:56 Urine Culture - Final Urine clean catch - Clean Catch Midstream No growth. Assessment and Plan (1) Atrial fibrillation with rapid ventricular response: Status: Acute (2) Acute respiratory failure with hypoxia: Status: Acute (3) Pneumonia: Status: Acute Plan Assessment: 84-year-old female with PMH of HLD, COPD, GERD, JANET on CPAP and Hypothyroidism who living independently at home and previously mostly functional, presents for evaluation after four days of generalized weakness, sore throat, nonproductive cough, sneezing, and decreased oral intake due to poor appetite. Acute hypoxic respiratory failure 2/2 LLL Pneumonia, on 2 L of O2 today Pneumonia CXR showing LLL focal opacity which might represent pneumonia Cover with Ceftriaxone and Doxy Continue IV steroids, scheduled Xopenex and atrovent, flutter valve and incentive spirometer Follow cultures CTA ordered and pending, will wait for imaging to be done for further management Pulmonology consulted CORI, resolved 1.8->1.2 -> 1.0 avoid nephrotoxic meds follow I\O Seiuzre continue Keppra, monitor for breakthrough seizures Afib w RvR, improved Had Digoxin and Cardizem IV doses in ED later digoxin 250mg x2 Continue diltiazem 60mg TID and digoxin qd continue Eliquis 5mg BID Keep on Tele Cardiology consulted and following Suspect type 2 NSTEMI with Afib RvR continue statin, abs and anticoagulation Elevated Bilirubin Likely 2/2 type 2 nstemi and hypopefusion with dehydration continue to monitor DVT PPx Eliquis Total time managing care of this patient today: 55 minutes. Quality Stroke Does the patient have a stroke diagnosis?: No VTE Prior VTE?: No VTE Risk Level:: Medical - moderate - high VTE Device Contraindication: Treatment Not Indicated VTE Drug Contraindication: N/A - Med Ordered
--- NOTE | 2025-03-04 11:16 | PM.PNCARD ---
Subjective Subjective Date of Service: 03/04/25 Interval history: Some sensations of shortness of breath but otherwise mostly okay. No cardiac symptoms. Review of Systems Review of Systems Yes all other systems are reviewed and are negative Constitutional: Reports as per HPI and Reports no additional constitutional complaints Eyes: Reports as per HPI and Denies no additional eye complaints Denies system reviewed and no additional complaints, except as documented and Reports as per HPI Cardiovascular: Reports as per HPI, Reports no additional cardiovascular complaints, Denies acrocyanosis, Denies cool extremities, Denies chest pain, Denies leg edema, Denies lightheadedness, Denies palpitations and Reports dyspnea Respiratory: Reports as per HPI, Denies no additional respiratory complaints and Reports dyspnea Gastrointestinal: Reports as per HPI and Denies no additional gastrointestinal complaints Genitourinary: Reports as per HPI Musculoskeletal: Reports no additional musculoskeletal complaints and Reports as per HPI Skin/Breast: Reports system reviewed and no additional complaints, except as docu Reports system reviewed and no additional complaints, except as documented and Reports as per HPI Psychiatric: Reports no additional psychiatric complaints and Reports as per HPI Endocrine: Reports no additional endocrine complaints, Reports as per HPI and Denies palpitations Hematologic/Lymphatic: Reports no additional hematologic/lymphatic complaints and Reports as per HPI Allergic/Immunologic: Reports no additional allergic/immunologic complaints and Reports as per HPI Physical Exam Vital Signs: Last Vital Signs Temp 97.6 F 03/04/25 07:45 Pulse 69 03/04/25 07:54 Resp 18 03/04/25 07:45 BP 143/78 H 03/04/25 07:54 Pulse Ox 91 L 03/04/25 07:45 O2 Del Method Nasal Cannula 03/04/25 07:45 O2 Flow Rate 1 03/04/25 07:45 BMI result Body Mass Index 24.1 Const General: comfortable and no acute distress Orientation/consciousness: patient oriented x3 HEENT Other: Unremarkable Head: Yes normal to inspection Neck Neck: Yes normal visual inspection Chest Chest palpation & inspection: normal inspection of the chest Resp Other: Bilateral crackles Cardio Palpation: normal PMI Heart sounds: S1 normal heart sound present, S2 normal heart sound present, no gallops, no murmurs and no rubs GI Palpation (GI): Soft to palpation Back/Spine/Pelvis Other: unremarkable Skin General skin exam: no rashes or lesions noted Neuro General: patient oriented x3 Extrem General: Yes normal to inspection Psych Mental Status: mental status grossly normal Objective Labs and Meds 03/03/25 08:29 03/03/25 08:29 Imaging Radiologist's impression: Impressions Chest CTA 03/04/25 09:47 IMPRESSION: 1. There is no evidence of pulmonary embolus. No evidence of acute aortic syndrome or aneurysm. 2. Multifocal pneumonia with dense consolidation of the inferior left lower lobe with air bronchograms. There are small left and tiny right parapneumonic effusions. No definite pleural enhancement. 3. Mild cardiomegaly with predominantly right atrial and right ventricular enlargement. 4. Mildly focally prominent breast tissue in the upper outer right breast, possibly normal parenchyma although correlation with mammogram is recommended in this patient without evidence of prior mammography, in an outpatient setting when the patient is stabilized. Electronically signed by: Elmer Shanks MD 03/04/2025 11:08 AM [facility] Progress Note: A&P Assessment and plan (1) Atrial fibrillation with rapid ventricular response: Status: Acute (2) Pneumonia: Status: Acute Plan Initial EKG with atrial fibrillation/rapid rate but currently better. Troponins are elevated which are most likely from the atrial fibrillation with rapid rate but she could have underlying coronary disease at her age. However, clinically she has got no angina. Elevated cardiac BNP could be from left heart or right heart dysfunction as well as atrial fibrillation. However, in the echocardiogram, LVEF is reasonably preserved at 52%. No significant valvular findings. CT chest reported have multifocal pneumonia. Overall, atrial fibrillation mainly driven by her respiratory issues. Current medications include diltiazem, digoxin, Eliquis. May continue that. Not a good candidate for rhythm control mainly because of pulmonary issues. As long as she maintains good rate control with the above medication, that is acceptable. May keep follow up with her own outpatient stone product fabricator upon discharge. Time Spent With Patient Time: Total time managing care of this patient today ____ minutes. Progress Note: Quality Stroke Does the patient have a stroke diagnosis?: No Procedures Date of Service Date of Service: 03/04/25
[2025-03-04] MEDS: levalbuterol HCL 1.25 MG, Ipratropium Bromide 0.5 MG INHALE (11:24)
--- NOTE | 2025-03-04 11:44 | MHC.CM.PN ---
CM assisted Patient with the completion of a HCP; she has named her Son/Jey as her Agent.A copy has been uploaded into Press and placed on the chart.
--- NOTE | 2025-03-04 15:10 | MHC.CM.PN ---
Patient has accepted a bed offer from [facility], pending medical clearance.
--- NOTE | 2025-03-04 17:14 | PC.RT ---
RT at pt bedside to give breathing tx as scheduled. Pt states that she had a reaction to her last dose, increased HR that took a long time to subside. Pt is hesitant to take another dose. RT assessed pt and she is not in distress, HR 95 which is high per pt. Med held at this time, notified.
[2025-03-05] VITALS (8 sets, daily range): BP systolic 111–148; BP diastolic 58–96; PULSE 69–86; RESP 18–20; TEMP 36.3–37.1; O2SAT 90–93
[2025-03-05] MEDS: 0.9 % Sodium Chloride Flush 3 ML SYRINGE IVFLUSH ×3 (09:52→21:05)
--- NOTE | 2025-03-05 10:12 | HO.PM.IMPN ---
Subjective Subjective Date of Service: 03/05/25 Interval History: Patient seen examined at bedside this morning, patient at this time no longer requiring oxygen, CTA showing multifocal pneumonia, continues on antibiotics. Review of Systems Review of Systems: Yes all other systems are reviewed and are negative Physical Exam Exam: Exam: General: AxOx3, shortness of breath with supplemental oxygen Head: AT/NC ENT: Moist mucous membranes Neck: supple CVS; irregularly irregular Lungs: Dimished breath sounds+ crackles left base Abd: Soft non tender, non distended Ext: No edema and no calf tenderness MSK: moving all 4 limbs Skin: No cyanosis or edema Psych: Cooperative with exam Neurology: no focal deficit Vital Signs: Vital Signs: Last Vital Signs Temp 98.8 F 03/05/25 07:47 Pulse 85 03/05/25 09:48 Resp 18 03/05/25 07:47 BP 148/82 H 03/05/25 09:48 Pulse Ox 90 L 03/05/25 07:47 O2 Del Method Room Air 03/05/25 07:47 O2 Flow Rate 1 03/04/25 19:34 BMI result Body Mass Index 24.1 Objective Data Active Medications Acetaminophen (Acetaminophen 325 Mg Tablet) 650 mg PO Q6H PRN PRN Reason: Pain, Mild 1-3,fever,headache Apixaban (Apixaban 5 Mg Tablet) 5 mg PO BID [facility] Last Admin: 03/05/25 09:53 Dose: 5 mg Documented By: ENMA Calcium Carbonate (Calcium Carbonate 750 Mg Tab.Chew) 750 mg PO Q4H PRN PRN Reason: Heartburn Digoxin (Digoxin 0.125 Mg Tablet) 0.0625 mg PO DAILY [facility]; Protocol Last Admin: 03/05/25 09:53 Dose: 0.0625 mg Documented By: ENMA Diltiazem HCl (Diltiazem Hcl 60 Mg Tablet) 60 mg PO QID [facility]; Protocol Last Admin: 03/05/25 09:48 Dose: 60 mg Documented By: ENMA Fluticasone/Umeclidinium/Vilanterol (Fluticasone/Umeclidinium/Vilanterol 100/62.5/25 Blst.W.Dev) 1 puff INHALE RDAILY [facility] On Hold: 03/02/25 09:25 Resume: 03/07/25 07:00 Last Admin: 03/02/25 08:30 Dose: 1 puff Documented By: JUDITH Ceftriaxone Sodium 1 gm/ (Sodium Chloride) 50 mls @ 100 mls/hr IV Q24H [facility] Last Infusion: 03/04/25 16:37 Dose: Infused Documented By: SHANTAL Doxycycline Hyclate 100 mg/ (Sodium Chloride) 250 mls @ 166.67 mls/hr IV Q12H [facility] Last Infusion: 03/05/25 03:31 Dose: Infused Documented By: ELPIDIO Ipratropium [place] (Ipratropium [place] 0.5 Mg/2.5 Ml Solution) 0.5 mg INHALE RQ6H [facility] Last Admin: 03/05/25 05:02 Dose: Not Given Documented By: XAVIER Non-Admin Reason: Patient Refused Levetiracetam (Levetiracetam 500 Mg Tablet) 500 mg PO BID [facility] Last Admin: 03/05/25 09:48 Dose: 500 mg Documented By: ENMA Levothyroxine Sodium (Levothyroxine Sodium 75 Mcg Tablet) 75 mcg PO DAILY@0600 [facility] Last Admin: 03/05/25 05:58 Dose: 75 mcg Documented By: ELPIDIO Magnesium Hydroxide (Milk Of Magnesia 30 Ml Oral.Susp) 30 ml PO DAILY PRN PRN Reason: Constipation Melatonin (Melatonin 3 Mg Tablet) 6 mg PO BEDTIME PRN PRN Reason: Insomnia Methylprednisolone Sodium Succinate (Methylprednisolone Sod Succ 40 Mg/Ml Vial) 40 mg IVPUSH Q6H [facility] Last Admin: 03/05/25 09:51 Dose: 40 mg Documented By: ENMA Omeprazole (Omeprazole 20 Mg Capsule.Dr) 20 mg PO DAILY@1630 [facility] Last Admin: 03/04/25 16:07 Dose: 20 mg Documented By: SHANTAL Ondansetron HCl (Ondansetron Hcl 4 Mg/2 Ml Vial) 4 mg IVPUSH Q8H PRN PRN Reason: Nausea and Vomiting Sodium Chloride (0.9 % Sodium Chloride Flush 3 Ml Syringe) 3 ml IVFLUSH QSHIFT [facility] Last Admin: 03/05/25 09:52 Dose: 3 ml Documented By: ENMA Labs 03/03/25 08:03/03/25 08:29 Assessment and Plan (1) Atrial fibrillation with rapid ventricular response: Status: Acute (2) Acute respiratory failure with hypoxia: Status: Acute (3) Pneumonia: Status: Acute Plan Assessment: 84-year-old female with PMH of HLD, COPD, GERD, JANET on CPAP and Hypothyroidism who living independently at home and previously mostly functional, presents for evaluation after four days of generalized weakness, sore throat, nonproductive cough, sneezing, and decreased oral intake due to poor appetite. Acute hypoxic respiratory failure 2/2 LLL Pneumonia, improving, on RA this morning Pneumonia CXR and CTA scan reviewed, finding Multifocal pneumonia Cover with Ceftriaxone and Doxy Continue IV steroids, scheduled Xopenex and atrovent, flutter valve and incentive spirometer Follow cultures Pulmonology consulted Seizure disorder, chronic, stable continue Keppra, monitor for breakthrough seizures Afib w RvR, improved Had Digoxin and Cardizem IV doses in ED later digoxin 250mg x2 Continue diltiazem 60mg TID and digoxin qd continue Eliquis 5mg BID Keep on Tele Cardiology consulted and following Suspect type 2 NSTEMI with Afib RvR continue statin, abs and anticoagulation Elevated Bilirubin Likely 2/2 type 2 nstemi and hypopefusion with dehydration continue to monitor DVT PPx Eliquis Total time managing care of this patient today: 55 minutes. Quality Stroke Does the patient have a stroke diagnosis?: No VTE Prior VTE?: No VTE Risk Level:: Medical - moderate - high VTE Device Contraindication: Treatment Not Indicated VTE Drug Contraindication: N/A - Med Ordered
[2025-03-05] MEDS: Ipratropium Bromide 0.5 MG/2.5 ML SOLUTION INHALE ×2 (11:26→17:03)
[2025-03-06] VITALS (11 sets, daily range): BP systolic 117–142; BP diastolic 68–88; PULSE 63–95; RESP 16–20; TEMP 36.3–36.6; O2SAT 92–96
[2025-03-06] MEDS: 0.9 % Sodium Chloride Flush 3 ML SYRINGE IVFLUSH ×3 (08:49→21:13)
[2025-03-06 09:14] LABS: MRSA Nasal PCR NEGATIVE (Negative); SA Nasal PCR NEGATIVE (Negative)
--- NOTE | 2025-03-06 09:44 | HO.PM.IMPN ---
Subjective Subjective Date of Service: 03/06/25 Interval History: Patient seen and examined at bedside this morning, patient mentioned that she gets short of breath on walking, when laying in bed not requiring any oxygen. Review of Systems Review of Systems: Yes all other systems are reviewed and are negative Physical Exam Exam: Exam: General: AxOx3, improved breathing Head: AT/NC ENT: Moist mucous membranes Neck: supple CVS; irregularly irregular Lungs: Diminished breath sounds+ mild wheezing Abd: Soft non tender, non distended Ext: No edema and no calf tenderness MSK: moving all 4 limbs Skin: No cyanosis or edema Psych: Cooperative with exam Neurology: no focal deficit Vital Signs: Vital Signs: Last Vital Signs Temp 97.8 F 03/06/25 07:29 Pulse 80 03/06/25 08:48 Resp 18 03/06/25 07:29 BP 128/68 03/06/25 08:48 Pulse Ox 92 03/06/25 07:29 O2 Del Method Room Air 03/06/25 07:29 O2 Flow Rate 1 03/04/25 19:34 BMI result Body Mass Index 24.1 Objective Data Active Medications Acetaminophen (Acetaminophen 325 Mg Tablet) 650 mg PO Q6H PRN PRN Reason: Pain, Mild 1-3,fever,headache Apixaban (Apixaban 5 Mg Tablet) 5 mg PO BID [facility] Last Admin: 03/06/25 08:48 Dose: 5 mg Documented By: DEUCE Calcium Carbonate (Calcium Carbonate 750 Mg Tab.Chew) 750 mg PO Q4H PRN PRN Reason: Heartburn Digoxin (Digoxin 0.125 Mg Tablet) 0.0625 mg PO DAILY [facility]; Protocol Last Admin: 03/06/25 08:48 Dose: 0.0625 mg Documented By: DEUCE Diltiazem HCl (Diltiazem Hcl 60 Mg Tablet) 60 mg PO QID [facility]; Protocol Last Admin: 03/06/25 08:48 Dose: 60 mg Documented By: DEUCE Fluticasone/Umeclidinium/Vilanterol (Fluticasone/Umeclidinium/Vilanterol 100/62.5/25 Blst.W.Dev) 1 puff INHALE RDAILY [facility] On Hold: 03/02/25 09:25 Resume: 03/07/25 07:00 Last Admin: 03/02/25 08:30 Dose: 1 puff Documented By: JUDITH Ceftriaxone Sodium 1 gm/ (Sodium Chloride) 50 mls @ 100 mls/hr IV Q24H [facility] Stop: 03/12/25 15:59 Last Infusion: 03/05/25 17:35 Dose: Infused Documented By: ENMA Doxycycline Hyclate 100 mg/ (Sodium Chloride) 250 mls @ 166.67 mls/hr IV Q12H [facility] Stop: 03/09/25 12:29 Last Infusion: 03/06/25 02:10 Dose: Infused Documented By: ELPIDIO Ipratropium [place] (Ipratropium [place] 0.5 Mg/2.5 Ml Solution) 0.5 mg INHALE RQ6H [facility] Last Admin: 03/06/25 05:15 Dose: Not Given Documented By: XAVIER Non-Admin Reason: Patient Asleep Levetiracetam (Levetiracetam 500 Mg Tablet) 500 mg PO BID [facility] Last Admin: 03/06/25 08:48 Dose: 500 mg Documented By: DEUCE Levothyroxine Sodium (Levothyroxine Sodium 75 Mcg Tablet) 75 mcg PO DAILY@0600 [facility] Last Admin: 03/06/25 06:22 Dose: 75 mcg Documented By: ELPIDIO Magnesium Hydroxide (Milk Of Magnesia 30 Ml Oral.Susp) 30 ml PO DAILY PRN PRN Reason: Constipation Melatonin (Melatonin 3 Mg Tablet) 6 mg PO BEDTIME PRN PRN Reason: Insomnia Methylprednisolone Sodium Succinate (Methylprednisolone Sod Succ 40 Mg/Ml Vial) 40 mg IVPUSH Q8H [facility] Last Admin: 03/06/25 08:48 Dose: 40 mg Documented By: DEUCE Omeprazole (Omeprazole 20 Mg Capsule.Dr) 20 mg PO DAILY@1630 [facility] Last Admin: 03/05/25 16:04 Dose: 20 mg Documented By: ENMA Ondansetron HCl (Ondansetron Hcl 4 Mg/2 Ml Vial) 4 mg IVPUSH Q8H PRN PRN Reason: Nausea and Vomiting Sodium Chloride (0.9 % Sodium Chloride Flush 3 Ml Syringe) 3 ml IVFLUSH QSHIFT [facility] Last Admin: 03/06/25 08:49 Dose: 3 ml Documented By: DEUCE Labs 03/03/25 08:29 03/03/25 08:29 Labs: Laboratory Results - last 24 hr 03/05/25 17:21 Nasal Screen MRSA (PCR) NEGATIVE Nasal S. aureus Screen NEGATIVE Nasal MRSA/S.aureus Interp SEE NOTE Assessment and Plan (1) Atrial fibrillation with rapid ventricular response: Status: Acute (2) Acute respiratory failure with hypoxia: Status: Acute (3) Pneumonia: Status: Acute Plan Assessment: 84-year-old female with PMH of HLD, COPD, GERD, JANET on CPAP and Hypothyroidism who living independently at home and previously mostly functional, presents for evaluation after four days of generalized weakness, sore throat, nonproductive cough, sneezing, and decreased oral intake due to poor appetite. Acute hypoxic respiratory failure 2/2 LLL Pneumonia, improved Pneumonia CXR and CTA scan reviewed, finding Multifocal pneumonia Cover with Ceftriaxone and Doxy Decreased IV steroids to q8h, scheduled Xopenex and atrovent, flutter valve and incentive spirometer Follow cultures Pulmonology consulted Oxygen walk test ordered Seizure disorder, chronic, stable continue Keppra, monitor for breakthrough seizures Afib w RvR, improved Had Digoxin and Cardizem IV doses in ED later digoxin 250mg x2 Continue diltiazem 60mg TID and digoxin qd continue Eliquis 5mg BID Keep on Tele Cardiology consulted and following Suspect type 2 NSTEMI with Afib RvR continue statin, abs and anticoagulation DVT PPx Eliquis Total time managing care of this patient today: 55 minutes. Quality Stroke Does the patient have a stroke diagnosis?: No VTE Prior VTE?: No VTE Risk Level:: Medical - moderate - high VTE Device Contraindication: Treatment Not Indicated VTE Drug Contraindication: N/A - Med Ordered
[2025-03-06] MEDS: Ipratropium Bromide 0.5 MG/2.5 ML SOLUTION INHALE ×2 (11:13→18:20)
--- NOTE | 2025-03-06 19:41 | P.PNPL_ITS ---
Subjective Subjective Date of Service: 03/06/25 Interval history: the patient was seen and examined. Feels a little better. She is off supplemental oxygen at rest. She did go for a walking oximetry and she did require oxygen with activity. We did review her CT scan and also compared to her CAT scans from [facility] back in December 2024. she has a significant dense left lower lobe consolidation and small effusion. No evidence of any airway obstruction that I could appreciate. She has the underlying history of Non tuberculosis mycobacterial disease. But, this is different. She has been on ceftriaxone we added doxycycline. Her white count has been stable. She is making some improvement. In addition she did have significant atrial fibrillation with rapid ventricular response in a non ST-elevation [place]. Therefore explained to her that would prefer avoiding any semi-invasive procedures such as bronchoscopy at this time. Her MRSA screening was negative which is reassuring. Will go ahead and repeat her chest x-ray to make sure that she is making some steady improvements. Ultimately if it appears that she is fairly stable she can complete a course of antibiotics and then follow up with her outpatient environmental journalist. Explained to her she will need to imaging and then if no better bronchoscopy be warranted specially her cardiac status is stabilized. Objective Data Labs 03/03/25 08:29 03/03/25 08:29 Labs: Laboratory Results - last 24 hr 03/05/25 17:21 Nasal Screen MRSA (PCR) NEGATIVE Nasal S. aureus Screen NEGATIVE Nasal MRSA/S.aureus Interp SEE NOTE Microbiology Microbiology Results: Microbiology 03/02/25 15:56 Urine clean catch - Clean Catch Midstream Urine Culture - Final No growth. Review of Systems Review of Systems Yes all other systems are reviewed and are negative Constitutional: Reports as per HPI and Reports no additional constitutional complaints Eyes: Reports as per HPI and Denies no additional eye complaints Denies system reviewed and no additional complaints, except as documented and Reports as per HPI Cardiovascular: Denies chest pain Respiratory: Reports as per HPI Gastrointestinal: Reports as per HPI and Denies no additional gastrointestinal complaints Genitourinary: Reports as per HPI Musculoskeletal: Reports no additional musculoskeletal complaints and Reports as per HPI Skin/Breast: Reports system reviewed and no additional complaints, except as docu Reports system reviewed and no additional complaints, except as documented and Reports as per HPI Psychiatric: Reports no additional psychiatric complaints and Reports as per HPI Endocrine: Reports no additional endocrine complaints and Reports as per HPI Hematologic/Lymphatic: Reports no additional hematologic/lymphatic complaints and Reports as per HPI Allergic/Immunologic: Reports no additional allergic/immunologic complaints and Reports as per HPI Physical Exam 2 Exam: Exam: General: AxOx3, shortness of breath with supplemental oxygen Head: AT/NC ENT: Moist mucous membranes Neck: supple CVS; irregularly irregular Lungs: Dimished breath sounds Abd: Soft non tender, non distended Ext: No edema and no calf tenderness MSK: moving all 4 limbs Skin: No cyanosis or edema Psych: Cooperative with exam Neurology: no focal deficit Vital Signs: Vital Signs: Last Vital Signs Temp 97.3 F 03/06/25 15:38 Pulse 84 03/06/25 18:22 Resp 18 03/06/25 18:22 BP 134/71 03/06/25 15:38 Pulse Ox 94 03/06/25 15:38 O2 Del Method Room Air 03/06/25 15:38 O2 Flow Rate 1 03/04/25 19:34 BMI result Body Mass Index 24.1 Procedures Date of Service Date of Service: 03/06/25 Assessment and Plan Assessment and plan (1) Pneumonia: Status: Acute (2) Acute respiratory failure with hypoxia: Status: Acute (3) Tracheal diverticulum: Status: Acute (4) New onset a-fib: Status: Acute Plan Continue CTX/Doxy, then start Augmentin/doxy to comeplete 10 day course repeat CXR tomorrow Oxygen with activity MAy benefit from Pulmonary rehab (outpt) CPT with aerobika and ISS sputum cx if able Will need close follow up with [facility] pulmonary upon d/c Time Spent With Patient Time: Total time managing care of this patient today ____ minutes. Progress Note: Quality Stroke Does the patient have a stroke diagnosis?: No
[2025-03-07 03:37] VITALS: BP 130/89; PULSE 88; RESP 18; TEMP 36.7; O2SAT 94
[2025-03-07 07:47] VITALS: BP 146/95; PULSE 101; RESP 18; TEMP 36.4; O2SAT 91
[2025-03-07] MEDS: Fluticasone/Umeclidinium/Vilanterol 100/62.5/25 BLST.W.DEV 1 PUFF INHALE (08:48)
[2025-03-07 08:50] VITALS: PULSE 87; RESP 16; O2SAT 95
[2025-03-07] MEDS: 0.9 % Sodium Chloride Flush 3 ML SYRINGE IVFLUSH (09:12)
--- NOTE | 2025-03-07 09:26 | PM.DS ---
DS: Providers Provider Date of Service: 03/07/25 Date of admission: 03/01/25 19:04 Date of discharge: 03/07/25 Primary care physician: Gui Bernal MD Consults: 03/01/25 19:17 Consult to Cardiology Routine Consulting Provider: [facility] Reason for consultation: NEw Onset Afib w RvR 03/03/25 07:40 Consult to Pulmonology Routine Consulting Provider: [facility] [place] [facility] Reason for consultation: Pneumonia, hypoxia Has provider been notified: No DS: Diagnosis Discharge Diagnosis (1) Pneumonia: Status: Acute (2) Acute respiratory failure with hypoxia: Status: Acute (3) Tracheal diverticulum: Status: Acute (4) New onset a-fib: Status: Acute DS: Summary Hospital Course Hospital Course: 84-year-old female with PMH of HLD, COPD, GERD, JANET on CPAP and Hypothyroidism who living independently at home and previously mostly functional, presents for evaluation after four days of generalized weakness, sore throat, nonproductive cough, sneezing, and decreased oral intake due to poor appetite. On admission chest x-ray and CTA showed multifocal pneumonia, placed on ceftriaxone and doxycycline with improvement of symptoms, assessed by pulmonology, suggested on discharging on p.o. antibiotics and follow up with pulmonology once improved. Course was complicated with atrial fibrillation, requiring digoxin and Cardizem. Patient discharged on diltiazem 60 mg 3 times a day and digoxin 0.0625 once a day, Eliquis 5 mg b.i.d.. Patient suggested on following up with Cardiology in outpatient setting. Pneumonia CXR and CTA scan reviewed, finding Multifocal pneumonia Status post Ceftriaxone and Doxy, transitioned to PO amoxicillin/pot 875-125mg BID and doxy 100mg BID, to complete a total of 7 days S/P IV solumedrol, transitioned to medrol dose brando Follow up with Pulmonology Seizure disorder, chronic, stable continue Keppra, monitor for breakthrough seizures Afib w RvR, improved Had Digoxin and Cardizem IV doses in ED later digoxin 250mg x2 Continue diltiazem 60mg TID and digoxin 0.0625 qd continue Eliquis 5mg BID Follow up with Cardiology Ambulatory dysfunction -suggest on home health services at home to address weakness. Time Attestation Discharge Coordination Time (in mins): 35 minutes Quality: Safe Use of Opioids Does Pt have an Active Cancer Diagnosis on the Problem List?: No Quality: Stroke Does the patient have a stroke diagnosis?: No Physical Exam Exam: Exam: General: AxOx3 on room air Head: AT/NC ENT: Moist mucous membranes Neck: supple CVS; irregularly irregular Lungs: Diminished breath sounds Abd: Soft non tender, non distended Ext: No edema and no calf tenderness MSK: moving all 4 limbs Skin: No cyanosis or edema Psych: Cooperative with exam Neurology: no focal deficit Vital Signs: Vital Signs: Last Vital Signs Temp 97.5 F 03/07/25 07:47 Pulse 87 03/07/25 08:50 Resp 16 03/07/25 08:50 BP 146/95 H 03/07/25 07:47 Pulse Ox 91 L 03/07/25 07:47 O2 Del Method Room Air 03/07/25 07:47 O2 Flow Rate 1 03/04/25 19:34 BMI result Body Mass Index 24.1 Discharge Plan Discharge Anticipated Discharge Date/Time: 03/07/25 15:07 Patient Disposition: Home Health Service Discharge Diagnosis: Pneumonia Atrial Fibrillation Referrals: Gui Bernal MD [Primary Care Provider, Internal Medicine] - 1 Week Santiago Eric MD [Physician, Cardiology] - 2 Weeks Discharge Medications: New digoxin 125 mcg (0.125 mg) Tablet 0.0625 mg PO DAILY Qty: 30 0RF Protocol: Hold for HR <: HOLD for HR < : 60 diltiazem HCl 60 mg Tablet 60 mg PO TID Qty: 180 0RF Protocol: Hold for SBP/HR < HOLD for SBP < : 90 HOLD for HR < : 60 Eliquis 5 mg Tablet 5 mg PO BID Qty: 60 0RF doxycycline hyclate 100 mg capsule 100 mg PO BID 7 Days Qty: 14 0RF amoxicillin-pot clavulanate 875-125 mg tablet 1 tab PO BID 7 Days Qty: 14 0RF methylprednisolone [Medrol (Brando)] 4 mg tablets,dose pack 4 mg PO DAILY Qty: 21 0RF Continued atorvastatin 20 mg tablet 20 mg PO DAILY levetiracetam 500 mg tablet 500 mg PO BID levothyroxine 75 mcg tablet 75 mcg PO DAILY@0600 omeprazole 20 mg capsule,delayed release(DR/EC) 20 mg PO DAILY@1630 estradiol 0.01 % (0.1 mg/gram) cream 1 appl vaginal DAILY PRN (Reason: Vaginal Dryness) cyclosporine [Restasis] 0.05 % dropperette 1 drp ophthalmic (eye) BID Trelegy Ellipta 100-62.5-25 mcg blister with device 1 ea inhalation DAILY vitamin B complex Capsule 1 cap PO DAILY Discharge Orders: Discharge Order (Routine); Ordered 03/07/25 Ordered By: Cory Stoddard Activity on Discharge: As tolerated Stand Alone Forms: Patient Portal Discharge page Print Language: Iraqi Care Plan Goals: Continue with antibiotics for Pneumonia, follow up with Pulmonology at [facility] Continue new medications for atrial fibrillation Health Concerns: Pneumonia Paroxysmal Atrial fibrillation Plan of Treatment: Continue Amoxicillin/Potassium and doxycyline for Pneumonia Follow up with Pulmonology Continue with diltiazem 60mg twice a day, digoxin 0.0625mg once a day for atrial fibrillation Follow up with cardiology as outpatient Physicial therapy at home Assessment: 84-year-old female with PMH of HLD, COPD, GERD, JANET on CPAP and Hypothyroidism who living independently at home and previously mostly functional, presents for evaluation after four days of generalized weakness, sore throat, nonproductive cough, sneezing, and decreased oral intake due to poor appetite. On admission chest x-ray and CTA showed multifocal pneumonia, course complicated by atrial fibrillation with low blood pressures. Patient Instructions: A-fib (Atrial Fibrillation) (DC), Pneumonia (DC)
--- NOTE | 2025-03-07 10:46 | P.CDIM_ITS ---
PROVIDER RESPONSE TEXT: To clarify, the appropriate diagnosis supported by the clinical indicators: Paroxysmal atrial fibrillation: terminates spontaneously or with intervention within 7 days of onset QUERY TEXT: PHYSICIAN'S DOCUMENTATION REQUEST Date of Query: 03/07/2025 09:00 AM EST Patient Name: Cyndie Bateman Admit Date: 03/02/2025 Dear Cory Stoddard MD, A review of the medical record indicates additional documentation may be needed. Please review below and update the documentation accordingly. Clinical Indicators: Cardiology consultation note 03/04/25 - Initial EKG with atrial fibrillation/rapid rate but currently better. Troponins are elevated which are most likely from the atrial fibrillation with rapid rate but she could have underlying coronary disease at her age. Elevated cardiac BNP could be from left heart or right heart dysfunction as well as atrial fibrillation. However, in the echocardiogram, LVEF is reasonably preserved at 52%. Overall, atrial fibrillation mainly driven by her respiratory issues. Digoxin and Cardizem IV doses in ED later Digoxin 250mg x 2. If possible, please provide further specificity regarding atrial fibrillation, such as: Paroxysmal atrial fibrillation: terminates spontaneously or with intervention within 7 days of onset Persistent atrial fibrillation: episodes of continuous AF that last more than 7 days and do not self-terminate Long lasting persistent atrial fibrillation: episodes of continuous AF that last more than 12 months Permanent atrial fibrillation: when a decision has been made to accept the presence of AF and there is no further attempt to restore or maintain sinus rhythm Other (explain) Clinically unable to determine (explain) Thank you, Hien Pinto, CCS, CDIS Use of terms such as suspected, likely, concern for, or probable (associated with a specific diagnosis that is being evaluated, monitored, or treated as if it exists) are acceptable and can be coded in the inpatient setting, when documented at the time of discharge. Please use your independent medical judgment in providing your response. THIS QUERY IS PART OF THE PERMANENT MEDICAL RECORD
--- NOTE | 2025-03-07 11:01 | MHC.CM.PN ---
Addendum entered by Eugenie Washburn 03/07/25 12:08: IMM was addressed with Patient. Addendum entered by Eugenie Washburn 03/07/25 12:06: Per PT, Patient is cleared to go home with services rather than STR. A referral was made to [facility], who is aware of today's dc. Original Note: Patient states that she wants to go home rather than to STR @ [facility]. Per MD, will ask PT to see Patient this morning for most recent recommendations. CM will follow.
[2025-03-07] MEDS: Ipratropium Bromide 0.5 MG/2.5 ML SOLUTION INHALE (11:21)
[2025-03-07 11:24] VITALS: PULSE 88; RESP 18
[2025-03-07 12:53] VITALS: BP 146/95; PULSE 88
--- NOTE | 2025-03-07 14:20 | P.F2F_ITS ---
Service Date Service Date: 03/07/25 Encounter Date of encounter: 03/07/25 Encounter: 84-year-old female with PMH of HLD, COPD, GERD, JANET on CPAP and Hypothyroidism who living independently at home and previously mostly functional. who pre sented to the hospital for generalized weakness, shortness of breath and cough. On admission chest x-ray and CTA showed multifocal pneumonia, Course was complicated with atrial fibrillation and hypoxia requiring supplemental oxygen Reasons for Services Signs and symptoms assessed: Ambulatory dysfunction, generalized weakness, shortness of breath on mild- moderate exertion Reason for physical therapy: home safety and mobility, restore joint function, gait/transfer training and energy conservation Reason for occupational therapy: home safety and mobility, restore joint function, gait/transfer training and energy conservation Homebound: Leaving the home is medically contraindicated at this time without the asist of a device and/or another person due th the listed conditions above and below. Reason homebound: unsteady gait / fall risk Certification: Based on the above findings, I certify that this patient is confined to the home and needs intermittent group home care, physical therapy and/or speech therapy, or continues to need occupational therapy. The patient is under my care, and I have initiated the establishment of the plan of care. The patient will be followed by a physician who will periodically review the plan of care. Time Spent With Patient Time: Total time managing care of this patient today ____ minutes.
[2025-03-11 14:49] LABS: Strep Pneumo Ag urine Detected (Not Detected)
== END 2025-03-07 15:14 | disposition home health service (06) | DRG 193 ==
LOC: HO.ED 17:59 → HO.EDOVER 19:13 → HO.IMC 03-02 16:27
PROVIDERS: Hospitalist; Physician Assistant Medical; Admitting Provider Student in an Organized Health Care Education/Training Program; Emergency Provider Emergency Medicine; PCP Family Medicine; Visit Provider Student in an Organized Health Care Education/Training Program
DX: J18.9 Pneumonia, unspecified organism (principal); I21.A1 Myocardial infarction type 2; J96.01 Acute respiratory failure with hypoxia; N17.9 Acute kidney failure, unspecified; E87.1 Hypo-osmolality and hyponatremia; J44.0 Chronic obstructive pulmonary disease with (acute) lower respiratory infection; E78.5 Hyperlipidemia, unspecified; G40.909 Epilepsy, unspecified, not intractable, without status epilepticus; I48.0 Paroxysmal atrial fibrillation; E86.0 Dehydration; E03.9 Hypothyroidism, unspecified; Z20.822 Contact with and (suspected) exposure to COVID-19; Z79.890 Hormone replacement therapy; Z79.899 Other long term (current) drug therapy
CPT/HCPCS: 36415; 71046; 71275; 73200; 76775; 80048; 80053; 81001; 81003; 82570; 83605; 83735; 83880; 84133; 84300; 84484; 85025; 85027; 87086; 87449; 87637; 87640; 87641; 87899; 93005; 93306; 94640; 97161; 97530; 99285; J0616; J0696; J1160; J1163; J1271; J2919; Q9967

== ENCOUNTER → 2025-03-01 14:14 | Outpatient (BNV) | payer MEDICARE, OTHER, SELFPAY | PROVIDERS: Emergency Provider Emergency Medicine; PCP Family Medicine; Visit Provider Radiology Diagnostic Ultrasound | DX: M25.511 Pain in right shoulder (principal); J90 Pleural effusion, not elsewhere classified | CPT/HCPCS: 73200; 76775 ==

== ENCOUNTER 2025-03-01 19:04 | Outpatient (BNV) | payer MEDICARE, OTHER, SELFPAY | END 2025-03-02 09:55 | PROVIDERS: Admitting Provider Student in an Organized Health Care Education/Training Program; Emergency Provider Emergency Medicine; PCP Family Medicine; Visit Provider Internal Medicine | DX: I42.2 Other hypertrophic cardiomyopathy (principal); I77.810 Thoracic aortic ectasia | CPT/HCPCS: 93306 ==

== ENCOUNTER 2025-03-01 19:04 | Outpatient (BNV) | payer MEDICARE, OTHER, SELFPAY | END 2025-03-04 09:47 | PROVIDERS: Admitting Provider Student in an Organized Health Care Education/Training Program; Emergency Provider Emergency Medicine; PCP Family Medicine; Visit Provider Radiology Diagnostic Radiology | DX: J18.8 Other pneumonia, unspecified organism (principal); I51.7 Cardiomegaly | CPT/HCPCS: 71275 ==

== ENCOUNTER 2025-03-01 19:04 | Outpatient (BNV) | payer MEDICARE, OTHER, SELFPAY | END 2025-03-07 08:00 | PROVIDERS: Admitting Provider Student in an Organized Health Care Education/Training Program; Emergency Provider Emergency Medicine; PCP Family Medicine; Visit Provider Radiology Diagnostic Radiology | DX: J90 Pleural effusion, not elsewhere classified (principal); R91.8 Other nonspecific abnormal finding of lung field | CPT/HCPCS: 71046 ==

== ENCOUNTER → 2025-03-01 19:04 | Outpatient (BNV) | payer MEDICARE, OTHER, SELFPAY | PROVIDERS: Admitting Provider Student in an Organized Health Care Education/Training Program; Emergency Provider Emergency Medicine; PCP Family Medicine; Visit Provider Student in an Organized Health Care Education/Training Program | DX: I48.91 Unspecified atrial fibrillation (principal); J96.01 Acute respiratory failure with hypoxia; N17.9 Acute kidney failure, unspecified; J18.9 Pneumonia, unspecified organism | CPT/HCPCS: 99222; 99233 ==

== ENCOUNTER → 2025-03-01 19:04 | Outpatient (BNV) | payer MEDICARE, OTHER, SELFPAY | PROVIDERS: Admitting Provider Student in an Organized Health Care Education/Training Program; Emergency Provider Emergency Medicine; PCP Family Medicine; Visit Provider Internal Medicine | DX: I48.91 Unspecified atrial fibrillation (principal) | CPT/HCPCS: 99233 ==

== ENCOUNTER → 2025-03-01 19:04 | Outpatient (BNV) | payer MEDICARE, OTHER, SELFPAY | PROVIDERS: Admitting Provider Student in an Organized Health Care Education/Training Program; Emergency Provider Emergency Medicine; PCP Family Medicine; Visit Provider Hospitalist | DX: J18.9 Pneumonia, unspecified organism (principal); J96.01 Acute respiratory failure with hypoxia; J39.8 Other specified diseases of upper respiratory tract; I48.91 Unspecified atrial fibrillation | CPT/HCPCS: 99233 ==

== ENCOUNTER 2025-03-29 08:56 | Outpatient (AMB) | payer MEDICARE, OTHER, SELFPAY ==
[2025-03-29 09:04] VITALS: BP 90/62; PULSE 82; BMI 23.1
--- NOTE | 2025-03-29 09:04 | A.OFFVIS_ITS ---
Vital Signs 03/29/25 09:04 Height 5 ft 6 in Weight 142 lb 13.753 oz BMI 23.1 BP 90/62 Blood Pressure Location Rt brachial Position Sitting Pulse 82 Pulse Source Monitor Intake Visit Reasons: YNO-QY-[id number] up (HS) Machine Coremaker Required: No Allergies gluten Adverse Reaction (Verified 03/29/25 11:02) Abdominal Pain Medication List - Last Reviewed 03/29/25 by Veronica Allen, KWAME apixaban (Eliquis) 5 mg PO BID atorvastatin 20 mg PO DAILY cyclosporine 0.05% (Restasis) 1 drp ophthalmic (eye) BID digoxin 0.0625 mg See Protocol PO DAILY diltiazem HCl 180 mg See Protocol PO ONCE doxycycline hyclate 100 mg PO BID 7 days estradiol 0.01%(0.1mg/gram) 1 appl vaginal DAILY PRN ohgvbedxuii-zklnloywq-chsqwimd 100-62.5-25 mcg (Trelegy Ellipta) 1 ea inhalation DAILY furosemide (Lasix) 40 mg PO DAILY ipratropium bromide 17 mcg/actuation (Atrovent HFA) inhalation levetiracetam 500 mg PO BID levothyroxine 75 mcg PO DAILY@0600 methylprednisolone (Medrol (Brando)) 4 mg PO DAILY omeprazole 20 mg PO DAILY@1630 pantoprazole 40 mg PO DAILY vitamin B complex 1 cap PO DAILY HPI Comments Details: History of Present Illness The patient is an 84 year old female presenting for follow-up after a recent hospital admission for multifocal pneumonia. Her hospital course was complicated by new-onset atrial fibrillation, which was managed with digoxin and diltiazem for rate control, and she was started on Eliquis for anticoagulation. After her initial discharge, she felt unwell and was readmitted to [facility] several days later, primarily for atrial fibrillation, and was found to still have some pneumonia for which she received additional antibiotics. She was discharged from the second hospitalization on . Since discharge, she has been experiencing persistent severe fatigue, constant lightheadedness, and periodic palpitations. She denies trouble breathing or chest pains. The patient reports weight loss and feeling consistently thirsty since starting a diuretic post-hospitalization. During her admission, a CTA of the chest ruled out a pulmonary embolism but confirmed multifocal pneumonia. An echocardiogram on 03/02/2025 showed an EF of 52%, a mildly dilated right atrium, and an ascending aorta of 3.9 cm with no valve abnormalities. Lab workup included an elevated troponin to 384.9 and a BNP of 9340.5, which were attributed to Afib with RVR and heart dysfunction, respectively, with a consideration for probable underlying coronary artery disease. Her past medical history includes hyperlipidemia, COPD, GERD, and hyperthyroidism. Current cardiac medications include Eliquis, atorvastatin, digoxin, and diltiazem. She was also prescribed furosemide 40 mg, which she has been taking, and Jardiance, which she has not yet started. Results - CTA ( 03/04/25) of the chest: Showed multifocal pneumonia with no pulmonary embolism. - Echocardiogram (03/02/2025): Ejection fraction 52%, no valve abnormalities, mildly dilated right atrium, and ascending aorta measuring 3.9 cm. - Labs (03/03/2025): Hemoglobin 10.2, potassium 4, creatinine 1.04. - Hospital Labs: Troponin kassie to 384.9 and BNP was elevated to 9340.5. - EKG (in-office): Atrial fibrillation with a controlled rate, 82b/min. PENDING SALE TO [facility] Medical History Tracheal diverticulum Aortic aneurysm Social History Household Members: None Housing: Apartment Do you presently have visiting nurse or other home services: No Alcohol intake: never Patient Tobacco Use Status: Never used Tobacco Advance Directives: Yes Advance Directives on File: Yes Advance Directives Date on File: 03/02/25 service: No Review of Systems Const All systems reviewed & are unremarkable except as noted in HPI and below Reports fatigue, Reports lethargy, Reports malaise and Reports weakness ENT Reports dizziness Card Denies chest pain, Denies chest pain at rest, Denies chest pain with activity, Denies rapid heart rate, Denies pedal edema, Denies edema, Denies leg edema, Denies lightheadedness, Denies palpitations, Denies dyspnea, Denies dyspnea on exertion and Denies orthopnea Resp Denies cough, Denies dyspnea and Denies dyspnea on exertion GI Denies hematochezia and Denies change in stool character Musc Reports abnormal gait, Denies limited range of motion, Denies muscle cramps, Reports muscle weakness, Denies numbness, Denies radiating pain into limb, Denies stiffness and Denies tingling Neuro Reports abnormal gait, Reports dizziness, Denies numbness, Denies tingling and Reports weakness Endo Reports fatigue and Denies palpitations Physical Exam Vital Signs: Last Vital Signs Pulse 82 03/29/25 09:04 BP 90/62 03/29/25 09:04 BMI result Body Mass Index 23.1 Const General: no acute distress and ill appearing Orientation/consciousness: patient oriented x3 Neck Neck: Yes normal visual inspection Resp Effort & Inspection: normal respiratory effort Auscultation: clear to auscultation bilaterally, rales (each base), no rhonchi and no wheezes Cardio Rate: regular rate Rhythm: abnormal rhythm Heart sounds: S1 normal heart sound present, S2 normal heart sound present, no gallops, no murmurs and no rubs Neuro General: patient oriented x3 Extrem General: Yes normal to inspection, No no pedal edema and No calf tenderness Psych Appearance: grossly normal Mental Status: mental status grossly normal Speech and movement: Normal speech and movement present Office Procedures EKG Details: Today, read by me, atrial fibrillation, SR/ T wave abn inferolateral leads,rate 82, Qtc 399ms 12127-Kurqvmfjbhyywwcit, Complete Assessment & Plan Assessment & Plan (1) Fatigue: Code(s): R53.83 - Other fatigue Category: Medical Plan: Symptoms today, fatigue, lightheaded, malaise. Noted to be hypotensive, not orthostatic. EKG showing AFib, rate 82. She has rales in each lower lobe. She states she is so weak she is having difficulty walking and talking. Recommended ER evaluation which she is agreeable. Transported via wheelchair to ER department. Report was called. Her son is present. (2) Light headed: Code(s): R42 - Dizziness and giddiness Category: Medical (3) Low BP: Code(s): I95.9 - Hypotension, unspecified Category: Medical (4) New onset a-fib: Code(s): I48.91 - Unspecified atrial fibrillation Category: Medical Plan: Recent finding of atrial fibrillation in the setting of multifocal pneumonia. She has been treated with heart rate control currently on diltiazem and digoxin. She is on anticoagulation with Eliquis since 03/01/25. Echocardiogram 03/02/2025 showed EF 52%, no valve abnormalities, right atrium mildly dilated. She believes the AFib is causing symptoms of fatigue and weakness. She did discuss this with her PCP and he suggested cardioversion. Current symptoms are most likely related to her recent illness. Will review with her primary staff training and development manager. (5) Pneumonia: Code(s): J18.9 - Pneumonia, unspecified organism Category: Medical Plan: The patient is still recovering from multifocal pneumonia, which required two recent hospitalizations and multiple courses of antibiotics. She reports being on her third day of a five-day course of azithromycin. She continues to experience significant weakness, and on examination, there are still some sounds in her lungs, suggesting a possible ongoing or slow-resolving infection. Her evaluation in the Emergency Department will include assessment of her pneumonia status, likely with a chest x-ray, to determine if further treatment is needed. Plan Discussion Notes I discussed with the patient that her severe fatigue and lightheadedness are likely due to a combination of factors, including dehydration from her new diuretic medication, her low blood pressure, and a prolonged recovery from her recent pneumonia. I explained that while her EKG shows atrial fibrillation, the heart rate is well-controlled and is not the likely cause of her acute, severe symptoms. We reviewed her medications, and I recommended she reduce her furosemide (water pill) dose from 40 mg to 20 mg and hold off on starting Jardiance to avoid worsening her potential dehydration and low blood pressure. Given the severity of her symptoms and her statement that she could not envision managing at home, I recommended she go to the Emergency Department for a comprehensive evaluation, including lab work, a chest X-ray, and likely IV fluids. Her son, Vito, who is her healthcare proxy, was included in the decision-making process. I explained my concerns to him, and both he and the patient agreed with the plan to go to the ER. I informed them I would call a report to the ER to give them a heads-up and facilitate her evaluation. Patient Instructions - Due to your severe lightheadedness, fatigue, and low blood pressure, you should go to the Emergency Room for evaluation. - Reduce your water pill (furosemide/Lasix) from 40 mg to 20 mg daily. If the pill is 40mg, you can use a pill splitter to take half a pill. - Do not start taking the Jardiance medication. Keep the prescription, but hold off on taking it for now. - Continue taking your other current medications, including Eliquis, atorvastatin, digoxin, and diltiazem. - Do not drive, as you are feeling very lightheaded and dizzy. Patient was informed and verbally consented to the use of an ambient scribe for clinic note documentation during this visit. Visit time spent on chart review, interview, assessment, orders, documentation. Medications: Changed From diltiazem HCl 60 mg See Protocol PO TID 180 tabs 0RF To diltiazem HCl 180 mg See Protocol PO ONCE Discontinued amoxicillin-pot clavulanate 875-125 mg Discontinued Reason: Patient no longer taking 1 tab PO BID 7 days 14 tabs 0RF Coding Level of Care Code Est Pt Level 5 (41506) Add On Problem Visit Only Diagnoses Fatigue R53.83 Light headed R42 Low BP I95.9 New onset a-fib I48.91 Pneumonia J18.9 CPT Codes EKG - CPT: 24537-Xorbuoghlmjnqmmyd, Complete ([id number]) Time Spent (min) 38
--- OUTSIDE RECORDS SUMMARY | 2025-03-29 11:04 | XMS_ITS | Encounter Summary ---
Author Organization [facility] Prior to 01/30/2024 Address [address] [place] [address] Care Team Providers Care Utilization Management Um Nurse Name Role Phone Rivera Sinclair MD Primary Care Provider Unavail able [facility], Pcp Primary Care Provider Unavailabl e Encounter Details Date Type Department Care Team Description 04/07/2017 Transfer Records Medical Records [address] [place] [address] Abstract, Provider Social History Tobacco Use Types Packs/Day Years Used Date Smoking Tobacco: Never Smokeless Tobacco: Never Alcohol Use Standard Drinks/Week Comments Yes 0 (1 standard drink = 0.6 oz pur e alcohol) wine with dinner- 1- 3 glasses Sex Assigned at Date Recorded Not on file Job Start Date Occupation Industry Not on file Not on file Not on file documented as of this encounter Plan of Treatment Not on file documented as of this encounter Visit Diagnoses Not on filedocumented in this encounter Care Teams Utilization Management Um Nurse Relationship Specialty Start Date End Date Rivera Sinclair MD PCP - General Internal Medicine 02/16/14 07/12/20 Caridad Mccall PCP - General Internal Medicine 07/13/20 documented as of this encounter
--- OUTSIDE RECORDS SUMMARY | 2025-03-29 11:04 | XMS_ITS | Encounter Summary ---
Author Organization [employer] [facility] Prior to 01/30/2024 Address [address] [place] [address] Care Team Providers Care Smelter Charger Name Role Phone Horacio Moeller MD Primary Care Provider Unavailable Rivera Sinclair MD Primary Care Provider Unavail able [facility] Primary Care Provider Unavailabl e Encounter Details Date Type Department Care Team Description 02/08/2013 Business Doc Medical Records [address] [place] [address] Abstract, Provider Social History Tobacco Use Types Packs/Day Years Used Date Smoking Tobacco: Never Alcohol Use Standard Drinks/Week Comments [...] on filedocumented in this encounter Care Teams Smelter Charger Relationship Specialty Start Date End Date Horacio Moeller MD PCP - General Internal Medicine 10/02/12 Rivera Sinclair MD PCP - General Internal Medicine 02/16/14 07/12/20 [place], Pcp PCP - General Internal Medicine 07/13/20 documented as of this encounter
--- OUTSIDE RECORDS SUMMARY | 2025-03-29 11:04 | XMS_ITS | Encounter Summary ---
Author Organization [facility] Prior to 01/30/2024 Address [address] [place] [address] Care Team Providers Care Case Worker Name Role Phone Rivera Sinclair MD Primary Care Provider Unavail able [facility] Pcp Primary Care Provider [facility] Encounter Details Date Type Department Care Team Description 03/14/2017 Hospital Medical Records [address] [place] [id number] [place] [address] Social History Tobacco Use Types Packs/Day Years Used Date Smoking Tobacco: Never Smokeless Tobacco: Never Alcohol Use Standard Drinks/Week Comments Yes 0 (1 standard drink = 0.6 oz pure alcohol) currently on antibiotics/ 07/21/2017 Sex Assigned at Date Recorded Not on file Job Start Date Occupation Industry Not on file Not on file Not on file documented as of this encounter Plan of Treatment Not on file documented as of this encounter Visit Diagnoses Not on filedocumented in this encounter Care Teams Case Worker Relationship Specialty Start Date End Date Rivera Sinclair MD PCP - General Internal Medicine 02/16/14 07/12/20 Caridad Mccall PCP - General Internal Medicine 07/13/20 documented as of this encounter
--- OUTSIDE RECORDS SUMMARY | 2025-03-29 11:05 | XMS_ITS | Encounter Summary ---
Author Organization [facility] Address [address] [place] [phone] Phone Care Team Providers Care Fund Accounting Manager Name Role Phone Tristin June MD Unavailable [phone] Gui Bernal MD Primary Care Provider + Michele Thomas MD Unavailable [phone] Encounter Details Date Type Department Care Team (Late st Contact Info) Description 08/03/2024 Procedure Pass [facility], Ct Scan - [address] [address] Social History Tobacco Use Types Packs/Day Years [...] your housing situation today? I have jerardo bueno 01/06/2024 How many times have you move [...] as of this encounter Plan of Treatment Upcoming Encounters Date Type Department Care Team (Late st Contact Info) Description 07/05/2025 11:00 AM EDT Telemedicine [facility] [address] [place] [address], [address] Floor, [address] [place] [address] Alisson Godoy MD, MPH [address] [place] [address] [address] [place] [phone] [email or web address] documented as of this encounter Visit Diagnoses Not on filedocumented in this encounter Care Teams Fund Accounting Manager Relationship Specialty Start Date End Date Gui Bernal MD [address] [place] [id number] PCP - General Family Medicine 10/03/21 Tristin June MD [address] [place] [phone] Historical LMR Provider 04/20/16 Michele Thomas MD [address] [place] [id number] Pulmonary Disease 04/24/22 documented as of this encounter Additional Source Comments The information contained in this document represents components of the legal health record. It is not the complete legal health record.[facility]
--- OUTSIDE RECORDS SUMMARY | 2025-03-29 11:05 | XMS_ITS | Encounter Summary ---
Author Organization [facility] Prior to 01/30/2024 Address [address] [place] [address] Care Team Providers Care Mash Tub Cooker Operator Name Role Phone Rivera Sinclair MD Primary Care Provider [facility] Pcp Primary Care Provider Unavailabl e Reason for Visit * Reason Comments E-prescribe Rx Request Encounter Details Date Type Department Care Team Description 07/12/2018 Refill Pulmonology - [place] [address] [facility] [address] [place] [address] Ashkan Richardson MD [address] [place] [phone] E-prescribe Rx Request Social History Tobacco Use Types Packs/Day Years Used Date Smoking Tobacco: Never Smokeless Tobacco: Never Alcohol Use Standard Drinks/Week Comments Yes 0 (1 standard drink = 0.6 oz pure alcohol) currently on 07/21/2017 Sex Assigned at Date Recorded Not on file Job Start Date Occupation Industry Not on file Not on file Not on file documented as of this encounter Miscellaneous Notes * Telephone Encounter - Sarika Rodríguez - 07/13/2018 9:00 AM EDT Patient would like script to be: E-PRESCRIBED/FAXED TO PHARMACY WHEN WAS THE PATIENT'S LAST APPOINTMENT WITH THE PRESCRIBING PROVIDER? 06/30/18 Does patient have an upcoming appointment? Yes 09/29/18 (THE MEDICATION REQUESTED IS ON THE MED LIST ABOVE) All of the medications requested were on the CURRENT MEDS list Did you check the Pharmacy information above?: YES Patient wants: 30 -day supply Is this a mail order prescription request ? 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
--- OUTSIDE RECORDS SUMMARY | 2025-03-29 11:05 | XMS_ITS | Encounter Summary ---
Author Organization [facility] Prior to 01/30/2024 Address [address] [place] [address] Care Team Providers Care Second Grade Teacher Name Role Phone Rivera Sinclair MD Primary Care Provider [facility] Pcp [facility] Encounter Details Date Type Department Care Team Description 05/19/2018 Refill Pulmonology - [place] 175 [facility] [address] [place] [address] Claudy Marcelino MD [address] [place] [address] Social History Tobacco Use Types Packs/Day Years [...] encounter Miscellaneous Notes * Telephone Encounter - Susan Houston M.A. - 05/20/2018 9:20 AM ESTFrom: Cyndie Bateman To: Claudy Marcelino MD Sent: 05/19/2018 4:37 PM EST Subject: Medication Renewal Request Original authorizing provider: CLAUDY MARCELINO MD, MD Cyndie Bateman would like a refill of the following medications: ethambutol (MYAMBUTOL) 400 MG tablet [CLAUDY MARCELINO MD, MD] Preferred pharmacy: Other - [facility] Comment: Dr. Marcelino, I am in [place] until after mid-May. I need ethambutol but it says no refills . I would like to get it refilled here at [facility] store # [id number], [address] [facility] in [place], [place]. Phone number is [phone]. Thank you. 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
--- OUTSIDE RECORDS SUMMARY | 2025-03-29 11:05 | XMS_ITS | Encounter Summary ---
Author Organization [facility] Prior to 01/30/2024 Address [address] [place] [address] Care Team Providers Care Field Health Officer Name Role Phone Rivera Sinclair MD Primary Care Provider Unavail able [facility], Pcp Primary Care Provider Unavailabl e Encounter Details Date Type Department Care Team Description 07/10/2016 Business Doc Medical Records [address] [place] [id number] Abstract, Provider Social History Tobacco Use Types [...] on filedocumented in this encounter Care Teams Field Health Officer Relationship Specialty Start Date End Date Rivera Sinclair MD PCP - General Internal Medicine 02/16/14 07/12/20 Caridad Mccall PCP - General Internal Medicine 07/13/20 documented as of this encounter
--- OUTSIDE RECORDS SUMMARY | 2025-03-29 11:05 | XMS_ITS | Encounter Summary ---
[facility] Prior to 01/30[facility]24 Address [address] [place] [address] Care Team Providers Care Continuum Of Care Manager Name Role Phone Rivera Sinclair MD Primary Care Provider [facility] Pcp Primary Care Provider Unavailabl e Reason for Visit * Reason Comments E-prescribe Rx Request Encounter Details Date Type Department Care Team Description 06/08/2019 Refill Pulmonology - [place] 175 [facility] [address] [place] [phone] Ashkan Richardson MD [address] [place] [phone] E-prescribe Rx Request Social History Tobacco Use [...] encounter Miscellaneous Notes * Telephone Encounter - Luana Alexis - 06/08/2019 11:34 AM EDT Patient would like script to be: E-PRESCRIBED/FAXED TO PHARMACY WHEN WAS THE PATIENT'S LAST APPOINTMENT WITH THE PRESCRIBING PROVIDER? 06/01/19 Does patient have an upcoming appointment? Yes 12/02/19 (THE MEDICATION REQUESTED IS ON THE MED LIST ABOVE) All of the medications requested were on the CURRENT MEDS list Did you check the Pharmacy information above?: YES Patient wants: 30 -day supply Is this a mail order prescription request ? 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
--- OUTSIDE RECORDS SUMMARY | 2025-03-29 11:05 | XMS_ITS | Encounter Summary ---
Author Organization [facility] Prior to 01/30/2024 Address [address] [place] [address] Care Team Providers Care Economic Development Coordinator Name Role Phone Rivera Sinclair MD Primary Care Provider Unavail able [facility], Pcp Primary [facility] Encounter Details Date Type Department Care Team Description 11/18/2017 Business Doc Medical Records [address] [place] [id number] Abstract, Provider Social History Tobacco Use Types Packs/Day Years Used Date Smoking Tobacco: Never Smokeless Tobacco: Never Alcohol Use Standard Drinks/Week Comments Yes 0 (1 standard drink = 0.6 oz pure alcohol) currently on antibiotics07/21/2017 Sex Assigned at Date Recorded Not on file Job Start Date Occupation Industry Not on file Not on file Not on file documented as of this encounter Plan of Treatment Not on file documented as of this encounter Visit Diagnoses Not on filedocumented in this encounter Care Teams Economic Development Coordinator Relationship Specialty Start Date End Date Rivera Sinclair MD PCP - General Internal Medicine 02/16/14 07/12/20 Caridad Mccall PCP - General Internal Medicine 07/13/20 documented as of this encounter
--- OUTSIDE RECORDS SUMMARY | 2025-03-29 11:05 | XMS_ITS | Encounter Summary ---
[facility] Address [address] [place] [address] Care Team Providers Care Balance Engineer Name Role Phone Rivera Sinclair MD Primary Care Provider [facility] Pcp Primary Care Provider Unavailabl e Reason for Visit * Reason Comments E-prescribe Rx Request Encounter Details Date Type Department Care Team Description 12/29/2017 Refill Pulmonology - [place] 175 [facility] [address] [place] [address] Ashkan Richardson MD [address] [place] [phone] E-prescribe Rx Request Social History Tobacco Use [...] encounter Miscellaneous Notes * Telephone Encounter - Armida Larios - 12/29/2017 10:25 AM EDT Patient would like script to be: E-PRESCRIBED/FAXED TO PHARMACY WHEN WAS THE PATIENT'S LAST APPOINTMENT WITH THE PRESCRIBING PROVIDER? 10/21/17 Does patient have an upcoming appointment? Yes 01/12/18 (THE MEDICATION REQUESTED IS ON THE MED LIST ABOVE) All of the medications requested were on the CURRENT MEDS list Did you check the Pharmacy information above?: YES Patient wants: 90 -day supply Is this a mail order prescription request ? 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
--- OUTSIDE RECORDS SUMMARY | 2025-03-29 11:05 | XMS_ITS | Encounter Summary ---
Author Organization [facility] Prior to 01/30/2024 Address [address] [place] [address] Care Team Providers Care Mold Yard Crane Operator Name Role Phone Rivera Sinclair MD Primary Care Provider [facility] Pcp Primary [facility] Encounter Details Date Type Department Care Team Description 08/06/2017 Pt. Non Urgent Medical Question Pulmonology - [place] [address] [facility] [address] [place] [address] Ashkan Richardson MD [address] [place] [address] Social History Tobacco Use Types Packs/Day Years Used Date Smoking Tobacco: Never Smokeless Tobacco: Never Alcohol Use Standard Drinks/Week Comments Yes 0 (1 standard drink = 0.6 oz pure alcohol) currently on antibiotics/ 07/21/2017 Sex Assigned at Date Recorded Not on file Job Start Date Occupation Industry Not on file Not on file Not on file documented as of this encounter Progress Notes * Ashkan Richardson MD - 08/07/2017 5:32 PM EDT Lmom- reassure her that decrease dose should have no termite exterminator helper effect * Susan Houston M.A. - 08/06/2017 10:01 AM EDTFrom: Cyndie Bateman To: Ashkan Richardson MD Sent: 08/06/2017 9:22 AM EDT Subject: meds error Hi Dr. Richardson, I just got refills on my 3 antibiotics. In the process I realized that I have made an error with the Rifampin. I put these pills in weekly pill organizers and sometime, I began placing just one Rifampin in the organizer rather than two as the Rx says. So for about a month or maybe 5 weeks I have been taking a half dose of Rifampin. This really worries me because I am fearful anyway that taking all these antibiotics will result in my resistance to them. I thought you should know. I guess there's nothing we can do about it now except for me to resume taking two of the 300 mg capsules as prescribed. Cristal documented in this encounter Plan of Treatment Not on file documented as of this encounter Visit Diagnoses Not on filedocumented in this encounter Care Teams Mold Yard Crane Operator Relationship Specialty Start Date End Date Rivera Sinclair MD PCP - General Internal Medicine 02/16/14 07/12/20 [facility], Pcp PCP - General Internal Medicine 07/13/20 documented as of this encounter
--- OUTSIDE RECORDS SUMMARY | 2025-03-29 11:05 | XMS_ITS | Encounter Summary ---
Author Organization [facility] Prior to 01/30/2024 Address [address] [place] [address] Care Team Providers Care Research Greenhouse Supervisor Name Role Phone Rivera Sinclair MD Primary Care Provider [facility] Pcp Primary Care Provider [facility] Encounter Details Date Type Department Care Team Description 06/18/2017 Telephone Pulmonology - [place] 175 [facility] [address] [place] [address] Ashkan Richardson MD [address] [place] [address] Social History Tobacco Use Types [...] encounter Miscellaneous Notes * Telephone Encounter - Ashkan Richardson MD - 06/19/2017 3:30 PM EDT Spoke to her and will watch for now. No fever or hemptysis, no SOB. Order LFT and immunopanel next friday * Telephone Encounter - Maegan Ceja LPN - 06/18/2017 2:06 PM EDT Patient reports increased chest congestion, with a minimally productive cough x 2 days. She feels congestion is rattling in her chest, relieved with her inhalers. No fever, no SOB. She does report fatigue. Please advise. * Telephone Encounter - Bernice Heard - 06/18/2017 10:41 AM EDT Pt said she has been on three antibiotics and pt thinks she developing an infection with rattling in her documented in this encounter Plan of Treatment Not on file documented as of this encounter Results * IMMUNOGLOBULIN E (06/24/2017 3:18 PM EDT) IMMUNOGLOBULIN IGE 10 0 - 158 IU/mL 06/24/2017 7:13 PM EDT [email or web address] 06/24/2017 3:18 PM EDT 06/24/2017 3:18 PM EDT Ashkan Richardson MD LAB Performing Organization Address [facility] Co de Phone Number [facility] [email or web address] * IGM (06/24/2017 3:18 PM EDT) IMMUNOGLOBULIN IGM 32 23 - 259 mg/dL 06/24/2017 7:35 PM EDT [facility] 06/24/2017 3:18 PM EDT 06/24/2017 3:18 PM EDT Ashkan Richardson MD LAB Performing Organization Address [facility] Co de Phone Number [facility] [email or web address] * IGG (06/24/2017 3:18 PM EDT) IMMUNOGLOBULIN IGG 741 549 - 1584 mg/dL 06/24/2017 7:35 PM EDT [facility] 06/24/2017 3:18 PM EDT 06/24/2017 3:18 PM EDT Ashkan Richardson MD LAB Performing Organization Address [facility] Co de Phone Number [employer] * HEPATIC FUNCTION (LIVER) PANEL (06/24/2017 3:18 PM EDT) Albumin 3.6 3.2 - 5.0 G/dL 06/24/2017 7:13 PM EDT [facility] SGPT 25 10 - 60 U/L 06/24/2017 7:13 PM EDT [facility] TOTAL PROTEIN (TP) 7.5 6.0 - 8.0 G/dL 06/24/2017 7:35 PM EDT [facility] BILIRUBIN TOTAL 0.3 0.0 - 1.4 mg/dL 06/24/2017 7:35 PM EDT [facility] BILIRUBIN DIRECT < 0.1 0.0 - 0.3 mg/dL 06/24/2017 7:35 PM EDT [facility] BILIRUBIN INDIRECT 0.2 0.0 - 1.1 mg/dL 06/24/2017 7:35 PM EDT [facility] SGOT 16 10 - 42 U/L 06/24/2017 7:35 PM EDT [facility] ALK PHOS 57 42 - 121 U/L 06/24/2017 7:35 PM EDT [facility] 06/24/2017 3:18 PM EDT 06/24/2017 3:18 PM EDT Ashkan Richardson MD LAB Performing Organization Address 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
--- OUTSIDE RECORDS SUMMARY | 2025-03-29 11:05 | XMS_ITS | Encounter Summary ---
Author Organization [facility] Prior to 01/30/2024 Address [address] [place] [address] Care Team Providers Care Coiled Coil Inspector Name Role Phone Rivera Sinclair MD Primary Care Provider [facility], Pcp Primary Care Provider [facility] Reason for Visit * Reason Onset Date Comments Blood Pressure Elevated 07/09/2019 Encounter Details Date Type Department Care Team Description 07/09/2019 Pt. Non Urgent Medic al Question Adult Medicine [address] [address] Rivera Sinclair MD Social History Tobacco Use Types Packs/Day Years [...] encounter Miscellaneous Notes * Telephone Encounter - Gosia Harris M.A. - 07/09/2019 3:11 PM EDTFrom: Cyndie Bateman To: Rivera Sinclair MD Sent: 07/09/2019 3:02 PM EDT Subject: Cristal's BP I think I forgot to include the numbers in my former message. This morning at 7:30 before breakfastit was 151/94. Today after a walk and then a nap it was 172/106. documented in this encounter Plan of Treatment Not on file documented as of this encounter Visit Diagnoses Not on filedocumented in this encounter Care Teams Coiled Coil Inspector Relationship Specialty Start Date End Date Rivera Sinclair MD PCP - General Internal Medicine 02/16/14 07/12/20 [facility], Pcp PCP - General Internal Medicine 07/13/20 documented as of this encounter
--- OUTSIDE RECORDS SUMMARY | 2025-03-29 11:05 | XMS_ITS | Encounter Summary ---
Author Organization [facility] Prior to 01/30/2024 Address [address] [place] [address] Care Team Providers Care Cloth Desizing Range Operator Chief Name Role Phone Rivera Sinclair MD Primary Care Provider [facility] Pcp Primary Care Provider [facility] e Encounter Details Date Type Department Care Team Description 01/08/2019 Pt. Non Urgent Medical Question Pulmonology - [place] 175 [facility] [address] [place] [address] Ashkan Richardson MD [address] [place] [phone] Social History Tobacco Use Types Packs/Day Years [...] as of this encounter Progress Notes * Annamarie Chilel M.A. - 01/08/2019 10:06 AM EDTFrom: Cyndie Bateman To: Ashkan Richardson MD Sent: 01/08/2019 10:02 AM EDT Subject: phlegm I find that I'm having to frequently clear my throat due to phlegm. Is this something that I shouldbe concerned about, given my respiratory history? Cristal documented in this encounter Plan of Treatment Not on file documented as of this encounter Visit Diagnoses Not on filedocumented in this encounter Care Teams Cloth Desizing Range Operator Chief Relationship Specialty Start Date End Date Rivera Sinclair MD PCP - General Internal Medicine 02/16/14 07/12/20 [facility], Pcp PCP - General Internal Medicine 07/13/20 documented as of this encounter
--- OUTSIDE RECORDS SUMMARY | 2025-03-29 11:05 | XMS_ITS | Encounter Summary ---
Author Organization [facility] Prior to 01/30/2024 Address [address] [place] [address] Care Team Providers Care It Application Administrator Name Role Phone Rivera Sinclair MD Primary Care Provider Unavail able [facility], Pcp [facility] Encounter Details Date Type Department Care Team Description 03/23/2018 Business Doc Medical Records [address] [place] [address] Abstract, Provider Social History Tobacco Use Types [...] on filedocumented in this encounter Care Teams It Application Administrator Relationship Specialty Start Date End Date Rivera Sinclair MD PCP - General Internal Medicine 02/16/14 07/12/20 Caridad Mccall PCP - General Internal Medicine 07/13/20 documented as of this encounter
--- OUTSIDE RECORDS SUMMARY | 2025-03-29 11:05 | XMS_ITS | Encounter Summary ---
[facility] Address [address] [place] [address] Care Team Providers Care Singeing Torch Operator Name Role Phone Rivera Sinclair MD Primary Care Provider [facility], Pcp Primary Care Provider Unavailabl e Reason for Visit * Reason Onset Date Comments refill request 06/30/2017 Encounter Details Date Type Department Care Team Description 06/30/2017 Refill Pulmonology - [address] [place] [address] Rajinder Allen MD refill request Social History Tobacco Use Types Packs/Day Years [...] encounter Miscellaneous Notes * Telephone Encounter - Jesusita Goodson M.A. 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
--- OUTSIDE RECORDS SUMMARY | 2025-03-29 11:05 | XMS_ITS | Encounter Summary ---
Author [facility] to [facility]/30[facility]24 Address [address] [place] [address] Care Team Providers Care Log Hooker Name Role Phone Rivera Sinclair MD Primary Care Provider [facility], Pcp Primary Care Provider Unavailabl e Reason for Referral * EXTERNAL (Routine) - Authorized/Booked Specialty Diagnoses / Procedures Referred By Nadiya florez Referred To Contact Physical Therapy Procedures REFERRAL TO PHYSICAL THERAPY Rivera Sinclair MD External Phys Thrpy Referral ID Status Reason Start Date Expiration Date V isits Requested Visits Authorized SEE NOTE Authorized/B ooked 03/12/2018 05/13/2018 1 1 Reason for Visit * Reason Onset Date Comments Orders Call 03/10/2018 Encounter Details Date Type Department Care Team Description 03/10/2018 Telephone Adult Medicine [address] [address] Rivera Sinclair MD Orders Call Social History Tobacco Use Types Packs/Day Years [...] encounter Miscellaneous Notes * Telephone Encounter - Luli Rajan NP - 03/12/2018 10:54 AM EST In my basket. Please fax to [phone]. * Telephone Encounter - Luli Rajan NP - 03/10/2018 4:25 PM EST If you could pend the orders that would be great I am getting behind. * Telephone Encounter - Valentine Mi M.A. - 03/10/2018 2:27 PM EST Will you order for patient. Please advise thank you * Telephone Encounter - Ginger Pleitez - 03/10/2018 10:36 AM EST Suzi from [facility] is requesting if can resend them a order to evaluate patient and if they can have an order for a right wrist and thumb spica splint faxed to [phone]. documented in this encounter Plan of Treatment Not on file documented as of this encounter Procedures Procedure Name Priority Date/Time Associated Diagnosis Comments SPLINT-THUMB SPICA Routine 03/12/2018 10:55 AM ES T Right wrist pain documented in this encounter Visit Diagnoses Diagnosis Right wrist pain- Primary Pain in joint, forearm documented in this encounter Care Teams Log Hooker Relationship Specialty Start Date End Date Rivera Sinclair MD PCP - General Internal Medicine 02/16/14 [facility] 07/13/20 documented as of this encounter
--- OUTSIDE RECORDS SUMMARY | 2025-03-29 11:05 | XMS_ITS | Encounter Summary ---
Author Organization [facility] Prior to 01/30/2024 Address [address] [place] [address] Care Team Providers Care Civil Division Deputy Sheriff Name Role Phone Rivera Sinclair MD Primary Care Provider [facility], Pcp Primary Care Provider Unavailabl e Encounter Details Date Type Department Care Team Description 03/27/2014 Pt. Non Urgent Medic al Question Adult Medicine [address] [address] Rivera Sinclair MD Social History Tobacco Use [...] as of this encounter Progress Notes * Jesusita Silvestre M.A. - 03/28/2014 8:32 AM ESTFrom: Cyndie Bateman To: Rivera Sinclair MD Sent: 03/27/2014 3:04 PM EST Subject: follow-up visit Visited adult care on . Treated by David. Tineo with amoxicillin. Dosage completed . I am still coughing a lot, to the point of pulling muscles. Shortness of breath and fatigue have me wondering if a re-visit would be herrera. Please advise. documented in this encounter Plan of Treatment Not on file documented as of this encounter Visit Diagnoses Not on filedocumented in this encounter Care Teams Civil Division Deputy Sheriff Relationship Specialty Start Date End Date Rivera Sinclair MD PCP - General Internal Medicine 02/16/14 07/12/20 [facility], Pcp PCP - General Internal Medicine 07/13/20 documented as of this encounter
--- OUTSIDE RECORDS SUMMARY | 2025-03-29 11:05 | XMS_ITS | Encounter Summary ---
Author Organization [facility] [employer] Prior to 01/30/2024 Address [address] [place] [address] Care Team Providers Care Cd Reactor Operator Head Name Role Phone Rivera Sinclair MD Primary Care Provider [facility], Pcp Primary Care Provider Unavailabl e Reason for Visit * Reason Onset Date Comments URI Symptoms 03/15/2014 Encounter Details Date Type Department Care Team Description 03/15/2014 Telephone Adult Medicine [address] [address] Rivera Sinclair MD URI Symptoms Social History Tobacco Use Types Packs/Day Years [...] encounter Miscellaneous Notes * Telephone Encounter - Arabella Aldair [place] - 03/15/2014 11:00 AM EST [phone] (home) CAll #1 placed to patient She states she started with a cold the day after thanksgiving, can't shake it. She also has a sore throat that she can't shake, No fever. She has a productive cough with yellow sputum. She is c/o pain in middle of R back. She is also c/o slight sob and fatigue. Also states her bp and pulse are slightly elevated Appt scheduled for this afternoon with Dori Tineo * Telephone Encounter - Mica Schulerjuancarlosgautam - 03/15/2014 9:48 AM EST EBOLA: Effective 01/05/14 If patient complains of a temperature greater than 101.5 ask if they have traveled to [place], [place], [place] or [place] or been in contact with anyone who has. Document responses in this message and send to triage. Symptoms patient is presenting: cold No temp How long has patient had these symptoms?: weeks PCP: Rivera Sinclair [place] / [place] / Product Type: MEDICARE [id number] documented in this encounter Plan of Treatment Not on file documented as of this encounter Visit Diagnoses Not on filedocumented in this encounter Care Teams Cd Reactor Operator Head Relationship Specialty Start Date End Date Rivera Sinclair MD PCP - General Internal Medicine 02/16/14 07/12/20 Count Includes [facility], Pcp PCP - General Internal Medicine 07/13/20 documented as of this encounter
--- OUTSIDE RECORDS SUMMARY | 2025-03-29 11:05 | XMS_ITS | Encounter Summary ---
Author Organization [facility] Prior to 01/30/2024 Address [address] [place] [address] Care Team Providers Care Solar Power Installer Name Role Phone Rivera Sinclair MD Primary Care Provider Unavail able [facility], Pcp Primary Care Provider Unavailabl e Encounter Details Date Type Department Care Team Description 06/10/2014 Business Doc Medical Records [address] [place] [id number] Abstract, Provider Social History Tobacco Use Types [...] on filedocumented in this encounter Care Teams Solar Power Installer Relationship Specialty Start Date End Date Rivera Sinclair MD PCP - General Internal Medicine 02/16/14 07/12/20 [place], Pcp PCP - General Internal Medicine 07/13/20 documented as of this encounter
--- OUTSIDE RECORDS SUMMARY | 2025-03-29 11:05 | XMS_ITS | Encounter Summary ---
[facility] to 01/30/[facility]24 Address [address] [place] [address] Care Team Providers Care Actionscript Developer Name Role Phone Rivera Sinclair MD Primary Care Provider [facility] Pcp Primary Care Provider Unavailabl e Reason for Visit * Reason Onset Date Comments Faxed Refill 04/15/2018 Encounter Details Date Type Department Care Team Description 04/15/2018 Refill Pulmonology - [place] [address] [facility] [address] [place] [address] Ashkan Richardson MD [address] [place] [phone] Faxed Refill Social History Tobacco Use Types Packs/Day Years [...] encounter Miscellaneous Notes * Telephone Encounter - Mague Khan - 04/15/2018 9:33 AM EST Patient would like script to be: E-PRESCRIBED/FAXED TO PHARMACY WHEN WAS THE PATIENT'S LAST APPOINTMENT WITH THE PRESCRIBING PROVIDER? 03/16/2018 Does patient have an upcoming appointment? Yes 06/22/2018 (THE MEDICATION REQUESTED IS ON THE MED LIST ABOVE) All of the medications requested were on the CURRENT MEDS list Did you check the Pharmacy information above?: YES Patient wants: 30 -day supply Is this a mail order prescription request ? NO Patients current insurance carrier is: Payor: MEDICARE-Ahandyhand / Plan: MEDICARE-Ahandyhand / Product Type: MEDICARE [id number] documented in this encounter Plan of Treatment Not on file documented as of this encounter Visit Diagnoses Diagnosis Mycobacterium avium complex (HCC) Other specified mycobacterial diseases documented in this encounter Care Teams Actionscript Developer Relationship Specialty Start Date End Date Rivera Sinclair MD PCP - General Internal Medicine 02/16/14 07/12/20 Caridad Mccall PCP - General Internal Medicine 07/13/20 documented as of this encounter
--- OUTSIDE RECORDS SUMMARY | 2025-03-29 11:05 | XMS_ITS | Encounter Summary ---
[facility] to 01/30/[facility]24 Address [address] [place] [address] Care Team Providers Care Motion Picture Narrator Name Role Phone Rivera Sinclair MD Primary Care Provider [facility] Pcp [facility] Encounter Details Date Type Department Care Team Description 06/19/2017 Pt. Non Urgent Medical Question Pulmonology - [place] 175 [facility] [address] [place] [address] Ashkan Richardson MD [address] [place] [address] Social History Tobacco Use Types [...] as of this encounter Progress Notes * Susan Roblesador - 06/19/2017 9:05 AM EDTFrom: Cyndie Bateman To: Ashkan Richardson MD Sent: 06/19/2017 8:18 AM EDT Subject: sputum greenish yellow Thank you for the call yesterday. Sleep was tough last night. Woke up coughing frequently. You asked about the color of my sputum. It's greenish yellow. Is there any helpful OTC that would not conflict with the meds that I am on? Cristal documented in this encounter Plan of Treatment Not on file documented as of this encounter Visit Diagnoses Not on filedocumented in this encounter Care Teams Motion Picture Narrator Relationship Specialty Start Date End Date Rivera Sinclair MD PCP - General Internal Medicine 02/16/14 07/12/20 [facility], Pcp PCP - General Internal Medicine 07/13/20 documented as of this encounter
--- OUTSIDE RECORDS SUMMARY | 2025-03-29 11:05 | XMS_ITS | Encounter Summary ---
Author Organization [facility] Address [address] [place] [address] Phone Care Team Providers Care Submarine Advisory Team Watch Officer Name Role Phone Tristin June MD Unavailable [phone] Gui Bernal MD Primary Care Provider + Michele Thomas MD Unavailable [phone] Encounter Details Date Type Department Care Team (Late st Contact Info) Description 02/17/2024 Procedure [facility], Ct Scan - [address] [address] Social History Tobacco Use Types Packs/Day Years [...] Info) Description 07/05/2025 11:00 AM EDT Telemedicine [facility] [address] [place] [address], [address] Floor, [address] [place] [address] Alisson Godoy MD, MPH [address] [place] [address] [address] [place] [address] [email or web address] documented as of this encounter Visit Diagnoses Not on filedocumented in this encounter Care Teams Submarine Advisory Team Watch Officer Relationship Specialty Start Date End Date Gui Bernal MD [address] [place] [address] PCP - General Family Medicine 10/03/21 Tristin June MD [address] [place] [phone] [email or web address] Historical LMR Provider 04/20/16 Michele Thomas MD [address] [place] [phone] Pulmonary Disease 04/24/22 documented as of this encounter Additional Source Comments The information contained in this document represents components of the legal health record. It is not the complete legal health record.[facility]
--- OUTSIDE RECORDS SUMMARY | 2025-03-29 11:05 | XMS_ITS | Encounter Summary ---
Author Organization [facility] Prior to 01/30/2024 Address [address] [place] [address] Care Team Providers Care Senior It Security Analyst Name Role Phone Rivera Sinclair MD Primary Care Provider [facility], Pcp Primary Care Provider Unavailabl e Reason for Visit * Reason Onset Date Comments Prior Authorization 09/23/2018 Encounter Details Date Type Department Care Team Description 09/23/2018 Telephone Physiatry - [address] [address] Napoleon Gonzalez DO Prior Authorization Social History Tobacco Use Types Packs/Day Years [...] encounter Miscellaneous Notes * Telephone Encounter - Tigist Castillo L.P.N. - 10/02/2018 9:41 AM EDT Prior auth has been denied Does not cover for her dx ,does not meet criteria Message to Dr Gonzalez for FYI * Telephone Encounter - Tigist Castillo L.P.N. - 09/30/2018 1:05 PM EDT P/a faxed back * Telephone Encounter - Tigist Castillo L.P.N. - 09/23/2018 2:06 PM EDT Prior authorization to Dr Gonzalez to sign * Telephone Encounter - Teri Grewal - 09/23/2018 11:29 AM EDT Pre Authorization for Medication-do not complete and send this encounter unless you have the fax from the pharmacy. Is this a Cover My Meds request: [place] of Medication DICLOFENAC SODIUM 1% GEL Dose of Medication 200G What is the RX # from the faxed refill? N/A How does patient take this med? Place 2 g onto the skin 3 times daily as needed (wrist pain) for upto 90 days What Pharmacy did the fax come from: Back& Pharmacy fax #: [facility] Party Information from fax: E T What Prescription Plan does the patient have? MEDICARE/ [facility] MEDICARE COMPLEMENT $15 [place] BIN/PCN if applicable: N/A Cardholder ID:[id number] /[id number] Person Code: N/A Relationship Code: N/A Help desk phone: documented in this encounter Plan of Treatment Not on file documented as of this encounter Visit Diagnoses Not on filedocumented in this encounter Care Teams Senior It Security Analyst Relationship Specialty Start Date End Date Rivera Sinclair MD PCP - General Internal Medicine 02/16/14 07/12/20 [facility], Pcp PCP - General Internal Medicine 07/13/20 documented as of this encounter
--- OUTSIDE RECORDS SUMMARY | 2025-03-29 11:05 | XMS_ITS | Encounter Summary ---
Author Organization [facility] [employer] [facility] Prior to 01/30/2024 Address [address] [place] [address] Care Team Providers Care Product Marketer Name Role Phone Rivera Sinclair MD Primary Care Provider Unavail able [facility] Pcp Primary Care Provider Unavailabl e Encounter Details Date Type Department Care Team Description 11/11/2014 [facility] [address] [place] [address] Md [place] Social History Tobacco Use Types Packs/Day Years [...] on filedocumented in this encounter Care Teams Product Marketer Relationship Specialty Start Date End Date Rivera Sinclair MD PCP - General Internal Medicine 02/16/14 07/12/20 Caridad Mccall PCP - General Internal Medicine 07/13/20 documented as of this encounter
--- OUTSIDE RECORDS SUMMARY | 2025-03-29 11:05 | XMS_ITS | Encounter Summary ---
[facility] to [facility] Address [address] [place] [address] Care Team Providers Care Hairspring Truer Name Role Phone Rivera Sinclair MD Primary Care Provider [facility] Pcp [facility] Encounter Details Date Type Department Care Team Description 06/27/2017 Pt. Non Urgent Medical Question Pulmonology - [place] 175 [facility] [address] [place] [address] Ashkan Richardson MD [address] [place] [phone] Social History Tobacco Use Types Packs/Day Years [...] of this encounter Progress Notes * Susan Houston M.A. - 06/30/2017 12:02 PM EDTFrom: Cyndie Bateman To: Ashkan Richardson MD Sent: 06/27/2017 8:35 AM EDT Subject: immunity It looks like my immunoglobulin numbers are low. Should I be avoiding public places? documented in this encounter Plan of Treatment Not on file documented as of this encounter Visit Diagnoses Not on filedocumented in this encounter Care Teams Hairspring Truer Relationship Specialty Start Date End Date Rivera Sinclair MD PCP - General Internal Medicine 02/16/14 07/12/20 [facility], Pcp PCP - General Internal Medicine 07/13/20 documented as of this encounter
--- OUTSIDE RECORDS SUMMARY | 2025-03-29 11:05 | XMS_ITS | Clinical Summary ---
Author Organization [facility] Prior to 01/30/[facility]24 Address [address] [place] [address] Care Team Providers Care Investment Recovery Technician Name Role Phone [facility], Pcp Primary Care Provider Unavailabl e Allergies No known active allergies Medications Medication Sig Dispensed Refills Start Date End Date Status RESTASIS 0.05 % ophthalmic emulsion Place 1 Drop into both eyes 2 times daily. 0 12/08/2014 Active ALBUTEROL SULFATE (PROAIR HFA) 108 (90 BASE) MCG/ACT Aero Soln Inhale 2 Puffs into the lungs every 4 hours as needed for Cough or Wheezing. 1 Inhaler 3 03/18/2017 Active betamethasone valerate (VALISONE) 0.1 % cream Apply sparingly twice daily for 21 days externally to affected area. Repeat as needed or taper down to use less frequently as needed 30 g 6 07/07/2017 Active FLOVENT HFA 110 MCG/ACT inhaler INHALE 1 PUFF BY MOUTH TWICE A DAY 1 Inhaler 5 03/16/2019 Active levothyroxine (SYNTHROID, LEVOTHROID) 75 MCG tablet TAKE 1 TABLET BY MOUTH EVERY DAY 90 Tab 1 04/13/2019 Active atorvastatin (LIPITOR) 20 MG tablet Take 20 mg by mouth daily. 0 Active Fluocinolone Acetonide (DermOtic) 0.01 % Oil Apply small amount to inner ears 3 times a week as needed 60 mL 1 03/15/2021 Active Active Problems Problem Noted Date Lichen sclerosus et atrophicus of the vu lva 07/07/2017 Anemia 06/19/2017 Pulmonary nodules 06/19/2017 Overview: Chest CTA 03/2017. 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 12/23/2016 Hyperlipidemia 03/07/2015 Overview: Total cholesterol 227, 09/05/2014 Asthma 09/05/2014 Osteopenia 03/17/2013 Hypothyroidism Dry eyes History of chest pain Overview: twice in d[place] past in 1994 and 2004 , tests were negative, no cardiac etiology identified Immunizations Name Administration Dates Next Due Influenza (> 6 Months) 02/01/2015,12/29/2013,06/2012 Influenza vaccine high dose age 65 and over 12/26/2018,12/25/2017,12/04/2016,01/23 Pneumoccoccal(Adult) Polysac charide PPSV23 02/05/2016 Pneumococcal Conjugate PCV-13 06/08/2014 Shingrix (Recombinant zoster vaccine) 06/09/2019 Tdap 02/03/2013 Family History Medical History Relation Name Comments [place] Brother in his 70s Cancer, Other Father from live r cancer Other Mother of CHF age 91 heart problems Mother's side mi in men an d strokes [place] Breast Negative Hx CA Colon Negative Hx CA Ovarian Negative Hx Relation Name Status Comments Brother Father Mother Mother's side Social History Tobacco Use Types Packs/Day Years Used Date Smoking Tobacco: Never Smokeless Tobacco: Never Alcohol Use Standard Drinks/Week Comments Yes 0 (1 standard drink = 0.6 oz pure alcohol) currently on antibiotics/ 07/21/2017 Sex Assigned at Date Recorded Not on file Job Start Date Occupation Industry Not on file Not on file Not on file Last Filed Vital Signs Vital Sign Reading Time Taken Comments Blood Pressure 120/80 03/15/2021 2:28 PM EST Pulse 70 03/15/2021 2:28 PM EST Temperature 36.6 C (97.8 F) 07/10/2019 1:06 PM EDT Respiratory Rate 16 07/10/2019 1:06 PM EDT Oxygen Saturation 96% 06/01/2019 1:26 PM EST Inhaled Oxygen Concentration - - Weight 72.5 kg (159 lb 12.8 oz) 03/15/2021 2:28 PM EST Height 167.6 cm (5' 6 ) 03/15/2021 2:28 PM EST Body Mass Index 25.79 03/15/2021 2:28 PM EST Plan of Treatment Health Maintenance Due Date Last Done Comments Covid-19 Vaccine (#1) 05/31/1941 SHINGLES VACCINE (2 of 2) 08/04/2019 06/09/2019 DEPRESSION SCREEN 09/12/2019 09/11/2018, , 03/06/2016, Additional history exists FALL RISK ASSESSMENT 09/12/2019 09/11/2018, 03/11/2017, 03/06/2016, Additional history exists MAMMOGRAM 06/22/2021 06/22/2020, 11/29, 06/04/2019, Additional history exists BONE DENSITY SCREENING 07/08/2021 7, 11/02/2010 (External Completion of test per patient (Patient reports normal results)) DTAP/TDAP/TD (2 - Td or Tdap) 02/03/2023 02/03/2013 CHOLESTEROL SCREENING 02/18/2024 02/17/2019 , 10/21/2017, 09/05/2014, Additional history exists BMI CHECK/ADVISE 03/31/2024 07/10/2019, 05/2018, 07/21/2017, Additional history exists INFLUENZA (#1) 2024 12/26/2018, 11/30, 12/04/2016, Additional history exists PNEUMOCOCCAL VACCINE Completed 02/05/2016, 06/09/19 15 Care Teams Investment Recovery Technician Relationship Specialty Start Date End Date Community, Pcp PCP - General Internal Medicine 07/13/20
--- OUTSIDE RECORDS SUMMARY | 2025-03-29 11:05 | XMS_ITS | Encounter Summary ---
Author [facility] Prior to 01/30/2024 Address [address] [place] [address] Care Team Providers Care Computer Operations Supervisor Name Role Phone Rivera Sinclair MD Primary Care Provider [facility] Pcp Primary Care Provider Unavailabl e Reason for Visit * Reason Comments E-prescribe Rx Request Encounter Details Date Type Department Care Team Description 12/31/2017 Refill Pulmonology - [place] 175 [facility] [address] [place] [address] Ashkan Richardson MD [address] [place] [phone] E-prescribe Rx Request Social History Tobacco Use [...] * Telephone Encounter - Sarika Rodríguez - 12/31/2017 4:23 PM EDT Patient would like script to be: [...] NO Patients current insurance carrier is: Payor: MEDICARE-ahoyDoc / Plan: MEDICARE-ahoyDoc / Product Type: MEDICARE [id number] documented in this encounter Plan of Treatment Not on file documented as of this encounter Visit Diagnoses Diagnosis Mycobacterium avium complex (HCC) Other specified mycobacterial diseases documented in this encounter Care Teams Computer Operations Supervisor Relationship Specialty Start Date End Date Rivera Sinclair MD PCP - General Internal Medicine 02/16/14 07/12/20 Caridad Mccall PCP - General Internal Medicine 07/13/20 documented as of this encounter
--- OUTSIDE RECORDS SUMMARY | 2025-03-29 11:05 | XMS_ITS | Encounter Summary ---
Author Organization [facility] Prior to 01/30/2024 Address [address] [place] [address] Care Team Providers Care Vulcanizing Machine Operator Name Role Phone Rivera Sinclair MD Primary Care Provider [facility], Pcp Primary Care Provider Unavailabl e Reason for Visit * Reason Comments E-prescribe Rx Request Encounter Details Date Type Department Care Team Description 03/15/2019 Refill Adult Medicine [address] [address] Rivera Sinclair MD E-prescribe Rx Request Social History Tobacco Use [...] Telephone Encounter - Gosia Harris M.A. - 03/16/2019 7:21 AM EST Lab Results Component Value Date NA 138 09/05/2014 K 4.7 09/05/2014 CO2 27.6 09/05/2014 CL 97 09/05/2014 BUN 13 09/05/2014 CREAT 0.8 12/30/2016 CA 9.1 09/05/2014 GFR > 60 12/30/2016 Last ov 02/17/19 * Telephone Encounter - Tonia Brooks - 03/15/2019 5:26 PM EST Patient would like script to be: E-PRESCRIBED/FAXED TO PHARMACY WHEN WAS THE PATIENT'S LAST APPOINTMENT IN ADULT MEDICINE? 02/17/19 WHEN WAS THE LAST TIME THE PATIENT SAW THEIR PCP? Same as above Does patient have an upcoming appointment? Yes 08/19/19 (THE MEDICATION REQUESTED IS ON THE MED LIST ABOVE) All of the medications requested were on the CURRENT MEDS list Did you check the Pharmacy information above?: YES Patient wants: 90 -day supply Is this a mail order prescription request ? NO If the refill is from a FAXED refill request what is the RX # listed on the fax? N/A Patients current insurance carrier is: [place] / [place] / Product Type: MEDICARE [id number] documented in this encounter Plan of Treatment Not on file documented as of this encounter Visit Diagnoses Not on filedocumented in this encounter Care Teams Vulcanizing Machine Operator Relationship Specialty Start Date End Date Rivera Sinclair MD PCP - General Internal Medicine 02/16/14 07/12/20 Caridad Mccall PCP - General Internal Medicine 07/13/20 documented as of this encounter
--- OUTSIDE RECORDS SUMMARY | 2025-03-29 11:05 | XMS_ITS | Encounter Summary ---
Author Organization [facility] Prior to 01/30/2024 Address [address] [place] [address] Care Team Providers Care Plant Puller Name Role Phone Rivera Sinclair MD Primary Care Provider [facility] Pcp Primary Care Provider Unavailabl e Reason for Visit * Reason Comments E-prescribe Rx Request Encounter Details Date Type Department Care Team Description 04/20/2018 Refill Pulmonology - [place] [address] [facility] [address] [place] [address] Ashkan Richardson MD [address] [place] [phone] E-prescribe Rx Request Social History Tobacco Use [...] * Telephone Encounter - Sarika Rodríguez - 04/20/2018 9:07 AM EST Patient would like script to be: E-PRESCRIBED/FAXED TO PHARMACY WHEN WAS THE PATIENT'S LAST APPOINTMENT WITH THE PRESCRIBING PROVIDER? 03/16/18 Does patient have an upcoming appointment? Yes 06/22/18 (THE MEDICATION REQUESTED IS ON THE MED LIST ABOVE) All of the medications requested were on the CURRENT MEDS list Did you check the Pharmacy information above?: YES Patient wants: 60 -day supply Is this a mail order prescription request ? NO Patients current insurance carrier is: [place] / Plan: MEDICARE-[email or web address] / Product Type: MEDICARE [id number] documented in this encounter Plan of Treatment Not on file documented as of this encounter Visit Diagnoses Diagnosis Mycobacterium avium complex (HCC) Other specified mycobacterial diseases documented in this encounter Care Teams Plant Puller Relationship Specialty Start Date End Date Rivera Sinclair MD PCP - General Internal Medicine 02/16/14 07/12/20 Caridad Mccall PCP - General Internal Medicine 07/13/20 documented as of this encounter
--- OUTSIDE RECORDS SUMMARY | 2025-03-29 11:05 | XMS_ITS | Encounter Summary ---
Author Organization [facility] Prior to 01/30/2024 Address [address] [place] [address] Care Team Providers Care Business Practices Officer Name Role Phone Rivera Sinclair MD Primary Care Provider [facility] Pcp Primary [facility] Encounter Details Date Type Department Care Team Description 01/28/2016 Pt. Non Urgent Medic al Question Adult Medicine [address] [address] Rivera Sinclair MD Social History Tobacco Use [...] Progress Notes * Jesusita Silvestre M.A. - 01/29/2016 8:45 AM EDTFrom: Cyndie Bateman To: Rivera Sinclair MD Sent: 01/28/2016 5:02 PM EDT Subject: ear wax removal Wax has accumulated again so that I need to have it professionally removed. Would you please arrange an appointment for me with the appropriate person? Thank you. Cristal documented in this encounter Plan of Treatment Not on file documented as of this encounter Visit Diagnoses Not on filedocumented in this encounter Care Teams Business Practices Officer Relationship Specialty Start Date End Date Rivera Sinclair MD PCP - General Internal Medicine 02/16/14 07/12/20 [facility], Pcp PCP - General Internal Medicine 07/13/20 documented as of this encounter
--- OUTSIDE RECORDS SUMMARY | 2025-03-29 11:05 | XMS_ITS | Encounter Summary ---
Author Organization [facility] Prior to 01/30/2024 Address [address] [place] [address] Care Team Providers Care Appeals Analyst Name Role Phone Rivera Sinclair MD Primary Care Provider Unavail able [facility], Pcp Primary Care Provider [facility] Encounter Details Date Type Department Care Team Description 03/10/2018 Information Systems Security Specialist Report Medical Records [address] [place] [address] Social History Tobacco Use Types Packs/Day Years [...] on filedocumented in this encounter Care Teams Appeals Analyst Relationship Specialty Start Date End Date Rivera Sinclair MD PCP - General Internal Medicine 02/16/14 07/12/20 [place] Pcp PCP - General Internal Medicine 07/13/20 documented as of this encounter
--- OUTSIDE RECORDS SUMMARY | 2025-03-29 11:05 | XMS_ITS | Encounter Summary ---
Author Organization [facility] [employer] [facility] Prior to 01/30/2024 Address [address] [place] [address] Care Team Providers Care Photoengraving Proofer Apprentice Name Role Phone Rivera Sinclair MD Primary Care Provider [facility] Pcp [facility] Encounter Details Date Type Department Care Team Description 04/20/2014 Pt. Non Urgent Medic al Question Adult Medicine [address] [address] Hung Tineo PA-C Social History Tobacco Use Types Packs/Day Years [...] Progress Notes * Jesusita Silvestre M.A. - 04/20/2014 9:15 AM ESTFrom: Cyndie Bateman To: Hung Tineo PA-C Sent: 04/20/2014 8:57 AM EST Subject: pneumonia I completed the latest round of antibiotics on Friday morning. How much better should I be? I am still coughing, short of breath, and fatigued. We are leaving Friday morning for two weeks in [place], seeking sunshine, greater warmth, and sea air. Should I come in first for a follow-up appointment? Cristal documented in this encounter Plan of Treatment Not on file documented as of this encounter Visit Diagnoses Not on filedocumented in this encounter Care Teams Photoengraving Proofer Apprentice Relationship Specialty Start Date End Date Rivera Sinclair MD PCP - General Internal Medicine 02/16/14 07/12/20 [facility], Pcp PCP - General Internal Medicine 07/13/20 documented as of this encounter
--- OUTSIDE RECORDS SUMMARY | 2025-03-29 11:05 | XMS_ITS | Encounter Summary ---
Author Organization [facility] Prior to 01/30/2024 Address [address] [place] [address] Care Team Providers Care Parts Control Clerk Name Role Phone Rivera Sinclair MD Primary Care Provider Unavail able [facility], Pcp Primary Care Provider Unavailabl e Encounter Details Date Type Department Care Team Description 01/07/2017 International Organizer Report Medical Records [address] [place] [address] Ashkan Richardson MD [address] [place] [id number] Social History Tobacco Use Types Packs/Day [...] on filedocumented in this encounter Care Teams Parts Control Clerk Relationship Specialty Start Date End Date Rivera Sinclair MD PCP - General Internal Medicine 02/16/14 07/12/20 [place], Pcp PCP - General Internal Medicine 07/13/20 documented as of this encounter
--- OUTSIDE RECORDS SUMMARY | 2025-03-29 11:05 | XMS_ITS | Encounter Summary ---
Author Organization [facility] Prior to 01/30/2024 Address [address] [place] [address] Care Team Providers Care Faculty Support Coordinator Name Role Phone Rivera Sinclair MD Primary Care Provider Unavail able [facility], Pcp Primary Care Provider Unavailabl e Encounter Details Date Type Department Care Team Description 06/09/2017 Transfer Records Medical Records [address] [place] [address] Abstract, Provider Social History Tobacco Use Types [...] on filedocumented in this encounter Care Teams Faculty Support Coordinator Relationship Specialty Start Date End Date Rivera Sinclair MD PCP - General Internal Medicine 02/16/14 07/12/20 [facility] Mccall PCP - General Internal Medicine 07/13/20 documented as of this encounter
--- OUTSIDE RECORDS SUMMARY | 2025-03-29 11:05 | XMS_ITS | Encounter Summary ---
Author Organization [employer] [facility] Prior to 01/30/2024 Address [address] [place] [address] Care Team Providers Care Tub Mender Name Role Phone Rivera Sinclair MD Primary Care Provider [facility], Pcp [facility] Encounter Details Date Type Department Care Team Description 12/24/2016 Orders Only Radiology - [address] [address] Luli Rajan NP Screening for diabetes mellitus (Primary Dx) Social History Tobacco Use Types Packs/Day Years [...] documented as of this encounter Results * CREATININE, BLOOD ASSAY (12/30/2016 10:34 AM EDT) CREAT 0.8 0.7 - 1.5 mg/dL 12/30/2016 12:41 PM EDT [facility] GFR > 60 >60 12/30/2016 12:41 PM EDT [facility] Comment: If patient is -Maldivian, multiply result by 1.21 Chronic Kidney Disease: < 60 ml/min/1.73 square meters Kidney Failure: < 15 ml/min/1.73 square meters 12/30/2016 10:3 4 AM EDT 12/30/2016 10:34 AM EDT Luli Rajan NP LAB Performing Organization Address City/State/[facility] Co de Phone Number [address] documented in this encounter Visit Diagnoses Diagnosis Screening for diabetes mellitus- Primary documented in this encounter Care Teams Tub Mender Relationship Specialty Start Date End Date Rivera Sinclair MD PCP - General Internal Medicine 02/16/14 07/12/20 [facility] License [facility], Pcp PCP - General Internal Medicine 07/13/20 documented as of this encounter
--- OUTSIDE RECORDS SUMMARY | 2025-03-29 11:05 | XMS_ITS | Encounter Summary ---
Author Organization [facility] [employer] [facility] Prior to 01/30/2024 Address [address] [place] [address] Care Team Providers Care Life Sciences Director Name Role Phone Rivera [place] MD Primary Care Provider Unavail [facility] [place] Pcp Primary Care Provider Unavailabl e Encounter Details Date Type Department Care Team Description 06/12/2016 [facility] [address] [place] [address] [place] Social History Tobacco Use Types [...] on filedocumented in this encounter Care Teams Life Sciences Director Relationship Specialty Start Date End Date Rivera Sinclair MD PCP - General Internal Medicine 02/16/14 07/12/20 [facility] Mccall PCP - General Internal Medicine 07/13/20 documented as of this encounter
--- OUTSIDE RECORDS SUMMARY | 2025-03-29 11:05 | XMS_ITS | Clinical Summary ---
Author Organization [facility] Address [address] [place] [id number] Phone Care Team Providers Care Payroll Master Name Role Phone Tristin June MD Unavailable [phone] Gui Bernal MD Primary Care Provider + Michele Thomas MD Unavailable [phone] Allergies Active Allergy Reactions Criticality Noted [...] Team Description 03/01/2025 11:30 AM EST Telemedicine 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 Health Maintenance Due Date Last Done Comments [...] EST) SODIUM 136 135 - 146 MEQ/L [facility] POTASSIUM 4.2 3.6 - 5.0 MEQ/L [facility] CHLORIDE 99(Abnormally L) 100 - 110 MEQ/L [facility] CARBON DIOXIDE 31(Abnormally H) 20 - 29 MEQ/L [facility] ANION GAP 6(Abnormally L) 8 - 16 meq/L [facility] GLUCOSE 96 65 - 99 MG/DL [facility] BUN 13 5 - 21 MG/DL [facility] CREATININE 0.7 0.4 - 1.0 MG/DL [facility] eGFR >60 MDRD calculation using age, gender, and IDMS traceable creatinine. If patient is , multiply value by 1.21. Mean GFR = 85 for ages 60 to 69 60 - 128 ml/min [facility] TOTAL PROTEIN 6.8 6.1 - 8.3 G/DL [facility] ALBUMIN 4.2 3.3 - 4.8 G/DL [facility] CALCIUM 9.2 8.9 - 10.3 MG/DL [facility] BILIRUBIN,TOTAL 1.4(Abnormally H) 0.4 - 1.2 MG/DL [facility] ALK PHOS 44 0 - 100 U/L [facility] ALT 14 0 - 35 IU/L [facility] AST 19 0 - 46 IU/L [facility] CHOLESTEROL 228(Abnormally H) 0 - 200 MG/DL [facility] TRIGLYCERIDE 69 0 - 250 MG/DL [facility] HDL 87 >39 MG/DL [facility] CHOL/HDL 2.6 <5 [facility] LDL 127 40 - 130 MG/DL [facility] NON-HDL CHOLESTEROL 141.0 MG/DL [facility] Comment: Reference Range: The non-HDL Cholesterol value should not exceed the desired LDL-C by more than 30 mg/dl. 04/26/2009 8:38 AM EST 04/26/2009 9:22 AM EST us Conversion Provider Not In Sys LAB BLOOD ORDERAB LES Final Result Performing Organization Address City/State/[facility] Co de Phone Number [address] [address], [facility] from Last 3 Months or Most Recently Relevant to Health Maintenance Insurance MEDICARE PART A & B [facility] MEDICARE ENHANCE SUPPLEMENT MEDICARE PART A & B [facility] MEDICARE ENHANCE SUPPLEMENT MEDICARE PART A & B [facility] MEDICARE ENHANCE SUPPLEMENT MEDICARE PART A & B [facility] MEDICARE ENHANCE SUPPLEMENT MEDICARE PART A & B [facility] MEDIC[facility] ENHANCE SUPPLEMENT MEDICARE PART A & B [facility] MEDICARE ENHANCE SUPPLEMENT MEDICARE PART A & B [facility] MEDICARE ENHANCE SUPPLEMENT MEDICARE PART A & B [facility] MEDICARE ENHANCE SUPPLEMENT MEDICARE PART A & B [facility] MEDICARE ENHANCE SUPPLEMENT Care Teams Payroll Master Relationship Specialty Start Date End Date Gui Bernal MD [address] [place] [address] PCP - General Family Medicine 10/03/21 Tristin June MD [address] [place] [phone] Historical LMR Provider 04/20/16 Michele Thomas MD [address] [place] [address] [place] [address] Pulmonary Disease 04/24/22 Additional Source Comments The information contained in this document represents components of the legal health record. It is not the complete legal health record.[facility]
--- OUTSIDE RECORDS SUMMARY | 2025-03-29 11:05 | XMS_ITS | Encounter Summary ---
Author Organization [facility] Prior to 01/30/2024 Address [address] [place] [address] Care Team Providers Care Impression Printer Name Role Phone Rivera Sinclair MD Primary Care Provider [facility] Pcp Primary Care [facility] Encounter Details Date Type Department Care Team Description 07/27/2017 Pt. Non Urgent Medical Question Pulmonology - [place] [address] [address] [place] [address] Ashkan Richardson MD [address] [place] [address] Social History Tobacco Use Types [...] Progress Notes * Susan Houston M.A. - 07/28/2017 11:56 AM EDTFrom: Cyndie Bateman To: Ashkan Richardson MD Sent: 07/27/2017 4:19 PM EDT Subject: c-scan or x-ray At my last visit on July 22, we spoke of scheduling an x-ray or c-scan to determine progress of mytreatment. Will you do that or should I and when? documented in this encounter Plan of Treatment Not on file documented as of this encounter Visit Diagnoses Not on filedocumented in this encounter Care Teams Impression Printer Relationship Specialty Start Date End Date Rivera Sinclari MD PCP - General Internal Medicine 02/16/14 07/12/20 Replaced By [facility], Pcp PCP - General Internal Medicine 07/13/20 documented as of this encounter
--- OUTSIDE RECORDS SUMMARY | 2025-03-29 11:05 | XMS_ITS | Encounter Summary ---
Author Organization [facility] Prior to 01/30/2024 Address [address] [place] [address] Care Team Providers Care Gauge Machine Operator Name Role Phone Rivera Sinclair MD Primary Care Provider Unavail able [facility], Pcp Primary Care Provider Unavailabl e Encounter Details Date Type Department Care Team Description 04/10/2018 Pt. Non Urgent Medical Question Pulmonology - [place] [address] [facility] [address] [place] [address] Ashkan Richardson MD [address] [place] [address] Social History Tobacco Use Types [...] on filedocumented in this encounter Care Teams Gauge Machine Operator Relationship Specialty Start Date End Date Rivera Sinclair MD PCP - General Internal Medicine 02/16/14 07/12/20 [place], Pcp PCP - General Internal Medicine 07/13/20 documented as of this encounter
--- OUTSIDE RECORDS SUMMARY | 2025-03-29 11:05 | XMS_ITS | Encounter Summary ---
Author Organization [facility] Prior to 01/30/2024 Address [address] [place] [address] Care Team Providers Care Forms Builder Name Role Phone Rivera Sinclair MD Primary Care Provider Unavail able [facility], Pcp Primary Care Provider Unavailabl e Encounter Details Date Type Department Care Team Description 02/21/2015 Wellness Visit Medical Records [address] [place] [address] Rivera Sinclair MD Social History Tobacco Use [...] on filedocumented in this encounter Care Teams Forms Builder Relationship Specialty Start Date End Date Rivera Sinclair MD PCP - General Internal Medicine 02/16/14 07/12/20 [facility] Mccall PCP - General Internal Medicine 07/13/20 documented as of this encounter
--- OUTSIDE RECORDS SUMMARY | 2025-03-29 11:05 | XMS_ITS | Encounter Summary ---
Author Organization [facility] [employer] [facility] Prior to 01/30/2024 Address [address] [place] [address] Care Team Providers Care Solvent Process Extractor Operator Name Role Phone Rivera Sinclair MD Primary Care Provider [facility] Pcp Primary Care Provider [facility] Encounter Details Date Type Department Care Team Description 04/05/2014 Pt. Non Urgent Medic al Question Adult Medicine [address] [address] Hung Tineo PA-C Social History Tobacco Use [...] Progress Notes * Jesusita Silvestre M.A. - 04/05/2014 9:25 AM ESTFrom: Cyndie Bateman To: Hung Tineo PA-C Sent: 04/05/2014 9:14 AM EST Subject: still coughing Just took last Prednisone pill. No significant change. I had such hopes. I think you are on the right track with the asthma. What next? Shall I come back in to see you? documented in this encounter Plan of Treatment Not on file documented as of this encounter Visit Diagnoses Not on filedocumented in this encounter Care Teams Solvent Process Extractor Operator Relationship Specialty Start Date End Date Rivera Sinclair MD PCP - General Internal Medicine 02/16/14 07/12/20 [facility], [facility] PCP - General Internal Medicine 07/13/20 documented as of this encounter
--- OUTSIDE RECORDS SUMMARY | 2025-03-29 11:05 | XMS_ITS | Encounter Summary ---
Author Organization [facility] [facility] Prior to 01/30/2024 Address [address] [place] [address] Care Team Providers Care Home Health Speech Therapist Name Role Phone Rivera Sinclair MD Primary Care Provider Unavail able [facility], Pcp Primary Care Provider Unavailabl e Encounter Details Date Type Department Care Team Description 06/06/2017 Transfer Records Medical Records [address] [place] [address] Abstract, Provider Social History Tobacco Use Types [...] on filedocumented in this encounter Care Teams Home Health Speech Therapist Relationship Specialty Start Date End Date Rivera Sinclair MD PCP - General Internal Medicine 02/16/14 07/12/20 [facility] Mccall PCP - General Internal Medicine 07/13/20 documented as of this encounter
--- OUTSIDE RECORDS SUMMARY | 2025-03-29 11:05 | XMS_ITS | Encounter Summary ---
Author Organization [facility] Prior to 01/30/2024 Address [address] [place] [address] Care Team Providers Care Co Founder And Cto Name Role Phone Rivera Sinclair MD Primary Care Provider [facility] Pcp Primary Care Provider Unavailabl e Reason for Visit * Reason Onset Date Comments BP-Quality 10/23/2015 Encounter Details Date Type Department Care Team Description 10/23/2015 Telephone Adult Medicine [address] [address] Rivera Sinclair MD BP-Quality Social History Tobacco Use Types Packs/Day Years [...] encounter Miscellaneous Notes * Telephone Encounter - Ashley Cash - 10/23/2015 12:52 PM EDT LEFT MESSAGE TO CALL AN SCHEDULE AN APPOINTMENT FOR A BP QUALITY CHECK documented in this encounter Plan of Treatment Not on file documented as of this encounter Visit Diagnoses Not on filedocumented in this encounter Care Teams Co Founder And Cto Relationship Specialty Start Date End Date Rivera Sinclair MD PCP - General Internal Medicine 02/16/14 07/12/20 [facility], Pcp PCP - General Internal Medicine 07/13/20 documented as of this encounter
--- OUTSIDE RECORDS SUMMARY | 2025-03-29 11:05 | XMS_ITS | Encounter Summary ---
Author Organization [facility] [employer] [facility] Prior to 01/30/2024 Address [address] [place] [address] Care Team Providers Care Project Crew Worker Name Role Phone Rivera Sinclair MD Primary Care Provider [facility] Pcp Primary Care Provider Unavailabl e Reason for Visit * Reason Comments E-prescribe Rx Request Encounter Details Date Type Department Care Team Description 12/23/2017 Refill Pulmonology - [place] [address] [facility] [address] [place] [address] Ashkan Richardson MD [address] [place] [phone] E-prescribe Rx Request Social History Tobacco Use [...] * Telephone Encounter - Sarika Rodríguez - 12/23/2017 4:45 PM EDT Patient would like script to [...] insurance carrier is: [place] / Plan: [place]-meebee / Product Type: MEDICARE [id number] documented in this encounter Plan of Treatment Not on file documented as of this encounter Visit Diagnoses Diagnosis Mycobacterium avium complex (HCC) Other specified mycobacterial diseases documented in this encounter Care Teams Project Crew Worker Relationship Specialty Start Date End Date Rivera Sinclair MD PCP - General Internal Medicine 02/16/14 07/12/20 [facility] Mccall PCP - General Internal Medicine 07/13/20 documented as of this encounter
--- OUTSIDE RECORDS SUMMARY | 2025-03-29 11:05 | XMS_ITS | Encounter Summary ---
Author Organization [facility] [facility] Prior to 01/30/2024 Address [address] [place] [address] Care Team Providers Care Setup Technician Name Role Phone Horacio Moeller MD Primary Care Provider Unavailable Rivera Sinclair MD Primary Care Provider Unavail able [facility] Primary Care Provider Unavailabl e Encounter Details Date Type Department Care Team Description 03/17/2013 Business Doc Medical Records [address] [place] [address] Abstract, Provider Social History Tobacco Use Types [...] on filedocumented in this encounter Care Teams Setup Technician Relationship Specialty Start Date End Date Horacio Moeller MD PCP - General Internal Medicine 10/02/12 Rivera Sinclair MD PCP - General Internal Medicine 02/16/14 07/12/20 [place], Pcp PCP - General Internal Medicine 07/13/20 documented as of this encounter
== END 2025-03-29 09:47 | disposition home or self-care (01) ==
PROVIDERS: PCP Family Medicine; Visit Provider Nurse Practitioner Family
DX: R53.83 Other fatigue (principal); R42 Dizziness and giddiness; I95.9 Hypotension, unspecified; I48.91 Unspecified atrial fibrillation; J18.9 Pneumonia, unspecified organism
CPT/HCPCS: 93010; 99215; G2211

== ENCOUNTER 2025-03-29 09:54 | Emergency (ER) | payer MEDICARE, OTHER, SELFPAY ==
--- NOTE | ~2025-03-29 | XR_ITS ---
EXAMINATION: XR CHEST CLINICAL INFORMATION: sob, cough COMPARISON: Chest 03/07/2025 TECHNIQUE: 2 views of the chest were obtained. FINDINGS: The lungs are well-expanded and clear. Increased bronchovascular markings are seen throughout both lungs especially right lung without any acute consolidation or effusion. The left pleural effusion has resolved. Heart size and poor vascularity is normal. No gross bony abnormality. There is cement augmentation of T12 vertebral fracture. XR/XR chest 2V IMPRESSION: Expanded lungs without acute pneumonic process. Left pleural effusion has resolved. Prominent bronchovascular markings are noted similar to previous study Electronically signed by: Will Rios MD 03/29/2025 11:25 AM EST
--- NOTE | 2025-03-29 09:57 | ECG_ITS ---
Test Reason : AFIB Blood Pressure : */* mmHG Vent. Rate : 76 BPM Atrial Rate : * BPM P-R Int : * ms QRS Dur : 98 ms QT Int : 368 ms P-R-T Axes : * 38 185 degrees QTcB Int : 414 ms Atrial fibrillation Nonspecific ST and T wave abnormality Abnormal ECG When compared with ECG of 01-Mar-2025 14:23, Vent. rate has decreased by 67 bpm T wave inversion less evident in Inferior leads Nonspecific T wave abnormality has replaced inverted T waves in Anterior leads T wave inversion more evident in Lateral leads Referred By: Generic ED Physician Electronically Signed By: PALMA HUNT
[2025-03-29 10:56] VITALS: BP 100/64; PULSE 81; RESP 18; TEMP 36.7; O2SAT 98; BMI 25.0
--- NOTE | 2025-03-29 10:56 | ED.ARRPALP ---
HPI - Arrhythmia/Palpitations General Chief Complaint: General Medical Stated Complaint: AFIB, lightheaded Related Data Home Medications ?Medication ?Instructions ?Recorded ?Confirmed atorvastatin 20 mg tablet 20 mg PO DAILY 03/01/25 03/29/25 cyclosporine 0.05 % eye drops in a 1 drp ophthalmic (eye) BID 03/01/25 03/29/25 dropperette (Restasis) estradiol 0.01% (0.1 mg/gram) 1 appl vaginal DAILY PRN Vaginal 03/01/25 03/29/25 vaginal cream Dryness fluticasone fur. 100 mcg-umeclid 1 ea inhalation DAILY 03/01/25 03/29/25 62.5 mcg-vilant 25 mcg inhalat.powder (Trelegy Ellipta) levetiracetam 500 mg tablet 500 mg PO BID 03/01/25 03/29/25 levothyroxine 75 mcg tablet 75 mcg PO DAILY@0600 03/01/25 03/29/25 omeprazole 20 mg capsule,delayed 20 mg PO DAILY@1630 03/01/25 03/29/25 release vitamin B complex 1 cap PO DAILY 03/01/25 03/29/25 diltiazem HCl 60 mg tablet 180 mg PO ONCE 03/29/25 03/29/25 furosemide 40 mg tablet (Lasix) 40 mg PO DAILY 03/29/25 ipratropium bromide 17 inhalation 03/29/25 03/29/25 mcg/actuation HFA aerosol inhaler (Atrovent HFA) pantoprazole 40 mg tablet,delayed 40 mg PO DAILY 03/29/25 03/29/25 release Previous Rx's ?Medication ?Instructions ?Recorded apixaban 5 mg tablet (Eliquis) 5 mg PO BID #60 tabs 03/07/25 digoxin 125 mcg (0.125 mg) tablet 0.0625 mg PO DAILY #30 tabs 03/07/25 doxycycline hyclate 100 mg capsule 100 mg PO BID 7 days #14 caps 03/07/25 methylprednisolone 4 mg tablets in 4 mg PO DAILY #21 ea 03/07/25 a dose pack (Medrol (Brando)) Allergies Allergy/AdvReac Type Severity Reaction Status Date / Time gluten AdvReac Abdominal Verified 03/29/25 11:02 Pain PMFSH Past Medical History Medical History Tracheal diverticulum Aortic aneurysm Social History Social History Household Members: None Housing: Apartment Do you presently have visiting nurse or other home services: No Alcohol intake: never Patient Tobacco Use Status: Never used Tobacco Advance Directives: Yes Advance Directives on File: Yes Advance Directives Date on File: 03/02/25 service: No Physical Exam Vital Signs: Vital Signs: Last Vital Signs Temp 98.0 F 03/29/25 10:56 Pulse 81 03/29/25 10:56 Resp 18 03/29/25 10:56 BP 100/64 03/29/25 10:56 Pulse Ox 98 03/29/25 10:56 O2 Del Method Room Air 03/29/25 10:56 BMI result Body Mass Index 25.0 Course Course Course Narrative: This is a Rapid Medical Exam performed in triage by Adilene Gunn PA-C. Full HPI, ROS and PE to be performed by primary ED provider. 84-year-old female with PMH of HLD, COPD, GERD, JANET on CPAP and Hypothyroidism presenting to the ED c/o low BP at home x2 weeks - & noted in Cardiology office today 90/62, fatigue, A.fib. Pt was recently d/c'd from our facility for PNA & hypoxia. denies CP PE: in wheelchair, mildly pale, NAD, talking in complete sentences Plan: EKG, labs, UA, CXR Medical Decision Making Lab Data 03/29/25 11:20 03/29/25 11:20 Labs: Lab Results 03/29/25 Range/Units 11:20 WBC 5.0 (4.8-10.8) X10*3/uL RBC 3.88 L (4.20-5.50) X10*6/uL Hgb 11.6 L (12.0-16.0) g/dl Hct 35.3 L (37.0-47.0) % MCV 91.0 (80.0-98.0) fL MCH 29.9 (27.0-33.0) pg MCHC 32.9 (31.0-35.0) g/dl RDW 14.7 (11.0-16.0) % Plt Count 213 (160-400) X10*3/uL MPV 9.7 (9.4-12.3) fL Immature Gran % (Auto) 0.2 (0.0-0.4) % Neut % (Auto) 45.1 (45-73) % Lymph % (Auto) 38.3 (20-40) % [place] % (Auto) 11.0 (2-11) % Eos % (Auto) 4.4 H (0-4) % Baso % (Auto) 1.0 (0-2) % Lymph # (Auto) 1.9 (1.2-4.9) X10*3/uL [place] # (Auto) 0.6 (0.1-1.2) X10*3/uL Eos # (Auto) 0.2 (0.0-0.4) X10*3/uL Baso # (Auto) 0.1 (0.0-0.2) X10*3/uL Abs Immat Gran (auto) 0.01 (0.00-0.03) X10*3/uL Absolute Neuts (auto) 2.3 (2.0-8.3) x10*3/uL Absolute Nucleated RBC 0.000 (0.0-0.012) X10*3/uL Nucleated RBC % (auto) 0.0 (0.0-0.2) /100WBC Sodium 141 (135-145) mmol/L Potassium 3.0 L D (3.3-5.1) mmol/L Chloride 99 (96-108) mmol/L Carbon Dioxide 32 H (22-29) mmol/L Anion Gap 13 (12-20) BUN 19 H (9-16) mg/dL Creatinine 1.24 (0.5-1.4) mg/dL Estim Creat Clear Calc 30.9 Estimated GFR 41 Random Glucose 95 (60-115) mg/dL Calcium 9.0 (8.4-10.2) mg/dL Magnesium 2.4 (1.6-2.6) mg/dL Total Bilirubin 1.2 H (0.0-1.0) mg/dL Direct Bilirubin 0.4 (0.0-0.5) mg/dL AST 26 (5-31) U/L ALT 19 (0-31) U/L Alkaline Phosphatase 67 (39-117) U/L Troponin I High Sens 18.0 H D (<3.5-17.0) ng/L Total Protein 7.1 (6.5-8.0) g/dL Albumin 4.0 (3.5-5.0) g/dL Influenza Type A (PCR) NEGATIVE (Negative) Influenza Type B (PCR) NEGATIVE (Negative) RSV RNA Qual (PCR) NEGATIVE (Negative) SARS-CoV-2 RNA (RT-PCR) NEGATIVE (Negative) Discharge Plan Discharge Clinical Impression: Low BP, Weakness Patient Disposition: Left W/O Completing Treatment Prescriptions: No Action atorvastatin 20 mg tablet 20 mg PO DAILY levetiracetam 500 mg tablet 500 mg PO BID levothyroxine 75 mcg tablet 75 mcg PO DAILY@0600 omeprazole 20 mg capsule,delayed release(DR/EC) 20 mg PO DAILY@1630 estradiol 0.01 % (0.1 mg/gram) cream 1 appl vaginal DAILY PRN (Reason: Vaginal Dryness) cyclosporine [Restasis] 0.05 % dropperette 1 drp ophthalmic (eye) BID Trelegy Ellipta 100-62.5-25 mcg blister with device 1 ea inhalation DAILY vitamin B complex Capsule 1 cap PO DAILY digoxin 125 mcg (0.125 mg) Tablet 0.0625 mg PO DAILY Qty: 30 0RF Protocol: Hold for HR <: HOLD for HR < : 60 Eliquis 5 mg Tablet 5 mg PO BID Qty: 60 0RF doxycycline hyclate 100 mg capsule 100 mg PO BID 7 Days Qty: 14 0RF methylprednisolone [Medrol (Brando)] 4 mg tablets,dose pack 4 mg PO DAILY Qty: 21 0RF pantoprazole 40 mg tablet,delayed release (DR/EC) 40 mg PO DAILY diltiazem HCl 60 mg tablet 180 mg PO ONCE Protocol: Hold for SBP/HR < HOLD for SBP < : 90 HOLD for HR < : 60 Atrovent HFA 17 mcg/actuation HFA aerosol inhaler inhalation furosemide [Lasix] 40 mg tablet 40 mg PO DAILY Discharge Date/Time: 03/29/25 13:31
[2025-03-29 11:25] LABS: MANUAL DIFF FLAG NO
[2025-03-29 11:27] LABS: Hematocrit 35.3 % (37.0-47.0); Hemoglobin 11.6 g/dl (12.0-16.0); Imm Gran Abs Auto 0.01 X10*3/uL (0.00-0.03); Imm Gran Pct Auto 0.2 % (0.0-0.4); Lymphocytes Absolute Auto 1.9 X10*3/uL (1.2-4.9); Mean Corpuscular HGB Conc 32.9 g/dl (31.0-35.0); Mean Corpuscular Hemoglobin 29.9 pg (27.0-33.0); Mean Corpuscular Volume 91.0 fL (80.0-98.0); NRBC Abs Auto 0.000 X10*3/uL (0.0-0.012); NRBC Pct Auto 0.0 /100WBC (0.0-0.2); Platelet Count 213 X10*3/uL (160-400); Red Blood Count 3.88 X10*6/uL (4.20-5.50); White Blood Count 5.0 X10*3/uL (4.8-10.8)
[2025-03-29 11:46] LABS: Anion Gap 13 (12-20); Blood Urea Nitrogen 19 mg/dL (9-16); Carbon Dioxide 32 mmol/L (22-29); Chloride 99 mmol/L (96-108); Potassium 3.0 mmol/L (3.3-5.1); Sodium 141 mmol/L (135-145)
[2025-03-29 11:47] LABS: Alanine Aminotransferase 19 U/L (0-31); Albumin Level 4.0 g/dL (3.5-5.0); Alkaline Phosphatase 67 U/L (39-117); Aspartate Amino Transferase 26 U/L (5-31); Calcium 9.0 mg/dL (8.4-10.2); Creatinine Clr Calc Pharmacy 30.9; Estimated Glomerular Filt Rate 41; Magnesium 2.4 mg/dL (1.6-2.6); Total Protein 7.1 g/dL (6.5-8.0)
[2025-03-29 11:50] LABS: Troponin-I High Sensitivity 18.0 ng/L (<3.5-17.0)
[2025-03-29 12:04] LABS: Resp Syncy Virus RNA Qual PCR NEGATIVE (Negative); SARS COV2 PCR INHOUSE NEGATIVE (Negative)
== END 2025-03-29 13:31 | disposition left against medical advice (07) ==
PROVIDERS: Physician Assistant; Emergency Provider Emergency Medicine; PCP Family Medicine
DX: R53.1 Weakness (principal); R03.1 Nonspecific low blood-pressure reading; R42 Dizziness and giddiness; I48.91 Unspecified atrial fibrillation; E78.5 Hyperlipidemia, unspecified; E03.9 Hypothyroidism, unspecified; J44.9 Chronic obstructive pulmonary disease, unspecified; Z79.02 Long term (current) use of antithrombotics/antiplatelets; Z79.899 Other long term (current) drug therapy; Z79.01 Long term (current) use of anticoagulants; Z03.818 Encounter for observation for suspected exposure to other biological agents ruled out
CPT/HCPCS: 36415; 71046; 80048; 80076; 83735; 84484; 85025; 87637; 93005; 99283

== ENCOUNTER → 2025-03-29 11:02 | Outpatient (BNV) | payer MEDICARE, OTHER, SELFPAY | PROVIDERS: PCP Family Medicine; Visit Provider Radiology Diagnostic Radiology | DX: R05.9 Cough, unspecified (principal); R06.02 Shortness of breath | CPT/HCPCS: 71046 ==

== ENCOUNTER → 2025-03-29 | Outpatient (BNVA) | payer MEDICARE, OTHER, SELFPAY | PROVIDERS: PCP Family Medicine; Visit Provider Nurse Practitioner Family | DX: I48.91 Unspecified atrial fibrillation (principal); J18.9 Pneumonia, unspecified organism; R42 Dizziness and giddiness; R53.83 Other fatigue; I95.9 Hypotension, unspecified; R00.2 Palpitations; R63.4 Abnormal weight loss; R63.1 Polydipsia | CPT/HCPCS: 93005; 99212 ==